=== PATIENT | male | born 1935 ===

== ENCOUNTER 2017-12-06 18:55 | Inpatient (IN) | payer MEDICARE, BC ==
[2017-12-06] MEDS ORDERED: Sodium Chloride 0.9% 2,000 ML IV STA (19:37)
[2017-12-06 19:43] LABS: VENOUS BLOOD GAS BASE EXCESS -1.1 mmol/L (0.0-2.0); VENOUS BLOOD GAS PO2 39 mm/Hg (30-55); VENOUS BLOOD PH 7.37 (7.32-7.43)
[2017-12-06 19:49] LABS: HEMOGLOBIN 13.5 g/dL (14.0-18.0); MEAN CELL VOLUME 90.3 fl (80.0-105.0); MEAN CORPUSCULAR HEMOGLOBIN 31.1 pg (25.0-35.0); MEAN CORPUSCULAR HGB CONC 34.4 g/dl (31.0-37.0); MEAN PLATELET VOLUME 10.8 fl (7.0-11.0); PARTIAL THROMBOPLASTIN TIME 25.8 Seconds (25.1-36.5); PROTHROMBIN TIME 11.4 SECONDS (9.4-12.5); RBC 4.34 10^6/uL (3.5-6.1); RED CELL DISTRIBUTION WIDTH 14.1 % (11.5-14.5)
[2017-12-06 19:51] LABS: ALB/GLOB RATIO 1.3 (1.1-1.8); ALBUMIN 4.2 g/dL (3.0-4.8); ALT/SGPT 411 U/L (7-56); AST/SGOT 633 U/L (17-59); BLOOD UREA NITROGEN 25 mg/dL (7-21); CALCIUM 9.6 mg/dL (8.4-10.5); GFR AFRICAN-AMERICAN > 60; GFR NON-AFRICAN AMERICAN > 60; WHITE BLOOD COUNT 1.8 10^3/ul (4.5-11.0)
[2017-12-06] MEDS ORDERED: Vancomycin 1gm in NS 250ml 1 GM/250 ML BAG IVPB STA (19:57)
[2017-12-06] MEDS ORDERED: Piperacillin/Tazobact 3.375 gm 100 ML IV STA (19:58)
[2017-12-06] MEDS ORDERED: Sodium Chloride 0.9% 1,000 ML IV SCH (20:00)
[2017-12-06 20:02] LABS: TROPONIN I < 0.01 ng/mL
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
[2017-12-06] MEDS ORDERED: Iodixanol 320 MG/ML 100 ML BOTTLE IV ONE (20:17)
[2017-12-06] MEDS ORDERED: Sodium Chloride 0.9% 1,000 ML IV STA (21:51)
[2017-12-06 22:52] LABS: VENOUS BLOOD GAS BASE EXCESS -6.2 mmol/L (0.0-2.0); VENOUS BLOOD GAS PO2 48 mm/Hg (30-55); VENOUS BLOOD PH 7.27 (7.32-7.43)
--- NOTE | 2017-12-06 23:11 | CP.PCM.CON ---
<Anand Tanner - Last Filed: 12/07/17 01:31> History of Present Illness - History of Present Illness History of Present Illness: Anand Tanner PGY2 ICU Consult Note for Dr. Lockett Mr. Almendarez is an 82 yo male with a PMH of hypertension, CAD s/p cardiac stents, hyperlipidemia, and paraplegia secondary to a prior fall who presents with multiple episodes of bilious non-bloody vomiting that began today. Per patient' s family who is bedside, the patient recently returned from travelling to [place] , where he wasn't drinking enough fluids. He began having epigastric pain yesterday with nausea, but began having vomiting earlier this morning, which worsened an hour prior to admission. Per daughter, the patient went to PMD and was given acid reflux meds but did not improve, he was also not febrile until seen in ED. CODE sepsis was called. ICU is consulted for hypotension. On CT abdomen/pelvis, the gallbladder wall is thickened with pericholecystic fluid and gallstones suspicious for acute cholecystitis. The CBD is dilated and there are high density foci within the distal CBD, concerning for possible calculus. The CBD measures 1 cm. 9 mm nodule in the lingula. Possible neoplastic process is not excluded. The right ureter is enlarged and there is wall enhancement noted, the findings are concerning for pyelitis. There is no calculus noted distally. Patient will be admitted to surgery, who evaluated the patient at bedside in ED. PMD: Dr. Julienne Amezquita Cardio: Dr. King Uro: Dr. Turner Review of Systems - Review of Systems All systems: reviewed and no additional remarkable complaints except (as per HPI ) Past Patient History - Past Medical History & Family History Past Medical History?: Yes Past Family History: Reviewed and not pertinent - Past Social History Smoking Status: Never Smoked Alcohol: Occasional Drugs: Denies Home Situation {Lives}: With Family - CARDIAC Hx Cardiac Disorders: Yes Hx Hypertension: Yes Hx Pacemaker: No - PULMONARY Hx Respiratory Disorders: No - NEUROLOGICAL Hx Paralysis: No Other/Comment: paraplegia s/p fall - HEENT Hx HEENT Problems: No - RENAL Hx Chronic Kidney Disease: No - ENDOCRINE/METABOLIC Hx Endocrine Disorders: No - HEMATOLOGICAL/ONCOLOGICAL Hx Blood Transfusions: No - INTEGUMENTARY Hx Dermatological Problems: No - MUSCULOSKELETAL/RHEUMATOLOGICAL Hx Musculoskeletal Disorders: Yes (SPINAL CORD INJURY) - GASTROINTESTINAL Hx Gastrointestinal Disorders: No - GENITOURINARY/GYNECOLOGICAL Hx Genitourinary Disorders: Yes Hx Urinary Tract Infection: Yes (2/2 urinary retention ) - PSYCHIATRIC Hx Emotional Abuse: No Hx Physical Abuse: No Hx Substance Use: No - SURGICAL HISTORY Hx Musculoskeletal Surgery: Yes (spinal column surgery) - ANESTHESIA Hx Anesthesia: Yes Hx Anesthesia Reactions: No Hx Malignant Hyperthermia: No Meds Allergies/Adverse Reactions: Allergies Allergy/AdvReac Type Severity Reaction Status Date / Time diatrizoate sodium Allergy Intermediate VERIFY ON Verified 02/17/17 09:50 [From Hypaque] ADM - Medications Medications: Current Medications Hydromorphone HCl (Dilaudid) 0.5 mg IVP Q6H PRN PRN Reason: Pain, moderate (4-7) Lactated Ringer's (Lactated Ringer's) 1,000 mls @ 125 mls/hr IV .Q8H NEETA Piperacillin Sod/Tazobactam Sod (Zosyn 3.375 In Ns 100ml) 100 mls @ 200 mls/hr IVPB Q6 NEETA PRN Reason: Protocol Stop: 12/08/17 18:29 Ondansetron HCl (Zofran Inj) 4 mg IVP Q4H PRN PRN Reason: Nausea/Vomiting Physical Exam - Constitutional Appears: Non-toxic, No Acute Distress - Head Exam Head Exam: NORMAL INSPECTION - Eye Exam Eye Exam: EOMI, Normal appearance - ENT Exam ENT Exam: Mucous Membranes Dry - Neck Exam Neck exam: Positive for: Normal Inspection - Respiratory Exam Respiratory Exam: NORMAL BREATHING PATTERN. absent: Rhonchi, Wheezes, Respiratory Distress - Cardiovascular Exam Cardiovascular Exam: Tachycardia, +S1, +S2 - GI/Abdominal Exam GI & Abdominal Exam: Soft, Tenderness. absent: Distended - Extremities Exam Extremities exam: Positive for: normal inspection. Negative for: full ROM, pedal edema - Back Exam Back exam: NORMAL INSPECTION - Neurological Exam Neurological exam: Alert - Psychiatric Exam Psychiatric exam: Normal Mood - Skin Skin Exam: Pallor Results - Vital Signs Recent Vital Signs: Last Vital Signs Temp 99.1 F 12/06/17 21:27 Pulse 96 H 12/06/17 22:38 Resp 18 12/06/17 21:27 BP 81/47 L 12/06/17 22:38 Pulse Ox 93 L 08/13/18 21:27 - Labs Result Diagrams: 12/06/17 19:34 12/06/17 19:34 Labs: Laboratory Results - last 24 hr 12/06/17 22:47 pO2 48 VBG pH 7.27 L VBG pCO2 45.0 VBG HCO3 20.7 L VBG Total CO2 22.1 VBG O2 Sat (Calc) 82.1 H VBG Base Excess -6.2 L VBG Potassium 2.9 L Sodium 139.0 Chloride 106.0 Glucose 73 L Lactate 5.8 H* FiO2 21.0 Venous Blood Potassium 2.9 L Assessment & Plan - Assessment and Plan (Free Text) Assessment: 82 yo male with a PMH of hypertension, CAD s/p cardiac stents, hyperlipidemia, and paraplegia 2/2 fall who presents with multiple episodes of bilious non- bloody vomiting w/ fevers. CODE SEPSIS was called. Likely severe sepsis w/ source being cholangitis as AST/ALT are elevated. Surgery is following the patient. Plan: Neuro - at baseline - maintain normothermia - monitor mental status changes Cardio - s/p 3L NS boluses - will cont LR @ 125 - goal MAP > 65 Pulm - CXR did not show acute findings - maintain SaO2>92% GI - CT abd/pelvis done - abd US ordered - monitor LFT's daily - GI consulted - NPO - zofran prn - dilaudid prn pain - zosyn for likely cholangitis /Renal - izaguirre inserted to monitor I/O and for urinary retention - monitor electrolytes and replete as needed ID - CODE SEPSIS called - patient received vancomycin and Zosyn in ED - started on Zosyn - blood and urine cultures ordered - f/u sepsis bundle - motrin prn fevers Endo - maintain euglycemia Heme - monitor leukopenia - maintain Hgb > 7 PPX - pepcid - SCDs Case was reviewed and discussed with attending with attending, Dr. Lockett <Monroe Lockett - Last Filed: 12/07/17 05:33> Meds - Medications Medications: Current Medications Calcium Carbonate (Oscal) 500 mg PO QAM NEETA Hydromorphone HCl (Dilaudid) 0.5 mg IVP Q6H PRN PRN Reason: Pain, moderate (4-7) Lactated Ringer's (Lactated Ringer's) 1,000 mls @ 125 mls/hr IV .Q8H [facility] Last Admin: 12/06/17 23:43 Dose: 125 mls/hr NOREPINEPHRINE BIT/0.9 % NACL (Levophed 4 Mg/ 250 Ml Ns Premixed) 4 mg in 250 mls @ 15 mls/hr IV .[id number] PRN; Protocol; 4 MCG/MIN PRN Reason: TITRATE PER MD ORDER Last Titration: 12/07/17 02:28 Dose: 12 mcg/min, 45 mls/hr Meropenem 500 mg/ Sodium (Chloride) 50 mls @ 100 mls/hr IVPB Q8 NEETA PRN Reason: Protocol Stop: 12/07/17 06:29 Last Admin: 12/07/17 01:31 Dose: 100 mls/hr Ibuprofen (Motrin Tab) 400 mg PO Q6H PRN PRN Reason: Fever >100.4 F Multivitamins/Minerals (Therapeutic-M Tab) 1 tab PO QAM [facility] Ondansetron HCl (Zofran Inj) 4 mg IVP Q4H PRN PRN Reason: Nausea/Vomiting Pantoprazole Sodium (Protonix Inj) 40 mg IVP DAILY [facility] Results - Vital Signs Recent Vital Signs: Last Vital Signs Temp 98.5 F 12/06/17 23:54 Pulse 78 12/07/17 02:15 Resp 23 12/07/17 02:15 BP 83/47 L 12/07/17 02:15 Pulse Ox 99 12/07/17 02:15 - Labs Result Diagrams: 12/06/17 19:34 12/06/17 19:34 Labs: Laboratory Results - last 24 hr 12/06/17 12/06/17 22:47 23:12 pO2 48 VBG pH 7.27 L VBG pCO2 45.0 VBG HCO3 20.7 L VBG Total CO2 22.1 VBG O2 Sat (Calc) 82.1 H VBG Base Excess -6.2 L VBG Potassium 2.9 L Sodium 139.0 Chloride 106.0 Glucose 73 L Lactate 5.8 H* FiO2 21.0 Venous Blood Potassium 2.9 L Urine Color Yellow Urine Appearance Clear Urine pH 6.0 Ur Specific [place] 1.020 Urine Protein Negative Urine Glucose (UA) Negative Urine Ketones Negative Urine Blood Trace-lysed H Urine Nitrate Negative Urine Bilirubin Negative Urine Urobilinogen 1.0 H Ur Leukocyte Esterase Negative Urine RBC 0 - 2 Urine WBC 0 - 2 Ur Epithelial Cells 0 - 2 Amorphous Sediment Occ Urine Bacteria Trace Assessment & Plan - Assessment and Plan (Free Text) Plan: The pt. was seen and examined. Pt. continued to be hypotensive. Central line was placed and pt. was started on Levophed. Zosyn switched to Meropenem. Attending/Attestation - Attestation I have personally seen and examined this patient.: Yes I have fully participated in the care of the patient.: Yes I have reviewed all pertinent clinical information: Yes
[2017-12-06 23:24] LABS: URINE BILIRUBIN NEGATIVE (NEGATIVE); URINE BLOOD TRACE-LYSED (NEGATIVE); URINE GLUCOSE (UA) NEGATIVE (NEGATIVE); URINE LEUKOCYTE ESTERASE NEGATIVE Leu/uL (NEGATIVE); URINE PROTEIN NEGATIVE mg/dL (<30 mg/dL)
[2017-12-06 23:28] LABS: URINE APPEARANCE CLEAR (CLEAR); URINE COLOR YELLOW (YELLOW)
[2017-12-06] MEDS: Lactated Ringer's 1,000 ML IV SCH (23:43)
--- NOTE | 2017-12-06 23:59 | CP.PCM.HP ---
History of Present Illness - History of Present Illness History of Present Illness: Surgery: Dr. 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 As per pt's daughter at bedside, the family just returned from a trip to [facility] on Wednesday & Wednesday night pt started having abdominal pain after dinner. This morning pt also had nausea followed by non-bloody, non bilious vomiting and he went to see his PMD. He was told everything was ok, however upon getting home pt started having episodes of RUQ abdominal pain again with N/V so he came to ER. Per pt's daughter he hasn't had similar abdominal pain in the past, however he did have issues with his bladder last year. At that time, he was admitted and seen by Dr. Turner & diagnosed with bladder outlet syndrome. Pt also reports fevers/ chills at home and on the way to the ER. In the ER, a CT scan was obtained and shows GB with stones, wall thickening, pericholecystic fluid & possible CBD stones. Surgery called to evaluate. Currently pt is resting comfortably and states pain has resolved. He denies any other complaints at this time but states that a izaguirre had to be placed in the ER due to his inability to urinate. Denies chest pain or SOB. PMHx: as listed above PSHx: Prostate laser vaporization, Back surgeries SocialHx: denies smoking/EtOH/drugs ALL: Diatrizoate Sodium Present on Admission - Present on Admission Any Indicators Present on Admission: No History of DVT/PE: No History of Uncontrolled Diabetes: No Urinary Catheter: No Decubitus Ulcer Present: No Review of Systems - Review of Systems All systems: reviewed and no additional remarkable complaints except (as per HPI ) Past Patient History - Past Medical History & Family History Past Medical History?: Yes Past Family History: Reviewed and not pertinent - Past Social History Smoking Status: Never Smoked Alcohol: Occasional Drugs: Denies Home Situation {Lives}: With Family - CARDIAC Hx Pacemaker: No - PULMONARY Hx Respiratory Disorders: No - NEUROLOGICAL Hx Paralysis: No Other/Comment: paraplegia s/p fall - HEENT Hx HEENT Problems: No - RENAL Hx Chronic Kidney Disease: No - ENDOCRINE/METABOLIC Hx Endocrine Disorders: No - HEMATOLOGICAL/ONCOLOGICAL Hx Blood Transfusions: No - INTEGUMENTARY Hx Dermatological Problems: No - MUSCULOSKELETAL/RHEUMATOLOGICAL Hx Musculoskeletal Disorders: Yes (SPINAL CORD INJURY) - GASTROINTESTINAL Hx Gastrointestinal Disorders: No - GENITOURINARY/GYNECOLOGICAL Hx Genitourinary Disorders: Yes Hx Urinary Tract Infection: Yes (2/2 urinary retention ) - PSYCHIATRIC Hx Emotional Abuse: No Hx Physical Abuse: No Hx Substance Use: No - SURGICAL HISTORY Hx Musculoskeletal Surgery: Yes (spinal column surgery) - ANESTHESIA Hx Anesthesia: Yes Hx Anesthesia Reactions: No Hx Malignant Hyperthermia: No Meds Allergies/Adverse Reactions: Allergies Allergy/AdvReac Type Severity Reaction Status Date / Time diatrizoate sodium Allergy Intermediate VERIFY ON Verified 02/17/17 09:50 [From Hypaque] ADM Physical Exam - Constitutional Appears: No Acute Distress - Head Exam Head Exam: ATRAUMATIC, NORMOCEPHALIC - ENT Exam ENT Exam: Mucous Membranes Moist - Respiratory Exam Respiratory Exam: NORMAL BREATHING PATTERN - Cardiovascular Exam Cardiovascular Exam: Tachycardia - GI/Abdominal Exam GI & Abdominal Exam: Soft. absent: Distended, Guarding, Rebound, Tenderness - Neurological Exam Neurological exam: Alert, Oriented x3 - Skin Skin Exam: Dry, Warm Results - Vital Signs Recent Vital Signs: Last Vital Signs Temp 99.0 F 12/06/17 23:23 Pulse 95 H 12/06/17 23:23 Resp 18 12/06/17 23:23 BP 80/50 L 12/06/17 23:23 Pulse Ox 98 12/06/17 23:23 - Labs Result Diagrams: 12/06/17 19:34 12/06/17 19:34 Labs: Laboratory Results - last 24 hr 12/06/17 12/06/17 22:47 23:12 pO2 48 VBG pH 7.27 L VBG pCO2 45.0 VBG HCO3 20.7 L VBG Total CO2 22.1 VBG O2 Sat (Calc) 82.1 H VBG Base Excess -6.2 L VBG Potassium 2.9 L Sodium 139.0 Chloride 106.0 Glucose 73 L Lactate 5.8 H* FiO2 21.0 Venous Blood Potassium 2.9 L Urine Color Yellow Urine Appearance Clear Urine pH 6.0 Ur Specific [place] 1.020 Urine Protein Negative Urine Glucose (UA) Negative Urine Ketones Negative Urine Blood Trace-lysed H Urine Nitrate Negative Urine Bilirubin Negative Urine Urobilinogen 1.0 H Ur Leukocyte Esterase Negative - Imaging and Cardiology CT scan - abdomen Status: Image reviewed by me Assessment & Plan - Assessment and Plan (Free Text) Assessment: 82M with acute cholangitis Plan: - Admit to the ICU - IVF resuscitation with goal MAPS above 60 - Monitor strict Is&Os - Broad spectrum IV ABX; Zosyn q6H - US of the abdomen also ordered; will f/u - GI consult placed as pt will need ERCP - AM Labs - Urology consult for urinary retention - d/w Dr. Andres Lovell
[2017-12-07 00:08] LABS: URINE AMORPHOUS SEDIMENT OCC; URINE EPITHELIAL CELLS 0 - 2 /hpf (0-5); URINE RBC 0 - 2 /hpf (0-2); URINE WBC 0 - 2 /hpf (0-6)
[2017-12-07 00:09] LABS: URINE BACTERIA TRACE (NEG)
[2017-12-07 01:00] VITALS: BMI 24.6
--- NOTE | 2017-12-07 01:26 | PCM.PROC ---
Procedures Attestation:: I certify that I have explained the specified Operation(s) or Procedure(s), risks, benefits and reasonable alternatives to the Patient and/or other person responsible. The opportunity was given to ask questions and all questions answered - Central Line Placement Right Internal Jugular Triple Lumen Catheter Aseptic technique was employed throughout the procedure: Hand Hygiene done prior to procedure, Full sterile barriers (mask, hair cover, sterile gown, sterile gloves), Full body sterile drape, Chloraprep Antiseptic: 30 second prep for IJ or SC sites CVP Time Out Performed: Yes Pt. Placed on Pulse Ox Monitor: Yes Central Line Prep: Chlorhexidine-Alcohol Combination Local Anesthesia Used: Lidocaine 1% Ultrasound Used for Placement: Yes Central Line Lumen Inserted: triple Central Line Length: 20 cm Post Procedure: Sutured in Place, Good Blood Return, All Ports Aspirated, Flushed, Capped, Sterile Dressing Applied Secured by: Securement device Post procedure dressing: Clear vapor permeable, Chlorhexidine disc (Biopatch) Post Procedure X-Ray: Yes Patient Tolerated Procedure: Well, No Complications Immediate Complications: None Additional Comments: Procedure was supervised by , PGY3
[2017-12-07] MEDS: NOREPINEPHRINE BIT/0.9 % NACL 4 MG/250 ML BAG IV PRN ×4 (01:30→18:26)
[2017-12-07] MEDS: Meropenem 500 MG in Sodium Chloride 0.9% 50 ML IVPB SCH ×2 (01:31→06:33)
--- NOTE | 2017-12-07 01:47 | PCM.SEPTIC ---
Sepsis Progress Note - Reassessment Type Date of Evaluation: 12/07/17 Time of Evaluation: 00:00 Reassessment Type: Non-invasive reassessment - Non Invasive Reassessment Were the most recent vital sign reviewed: Yes Vital Sign (Latest): Temp Pulse Resp BP Pulse Ox 98.5 F 95 H 18 78/43 L 99 12/06/17 23:54 12/06/17 23:54 12/06/17 23:54 12/06/17 23:54 12/06/17 23:54 Cardiovascular: Yes: Tachycardia. No: Edema, JVD, Murmur Respiratory: Yes: Normal Breath Sounds. No: Crackles, Rales, Rhonchi, Wheezing , Respiratory Distress Capillary Refill: Normal (Less than 2 sec) Pulses: Normal Radial Skin: Pale
[2017-12-07] MEDS ORDERED: Levalbuterol 1.25 MG/3 ML Inhal Soln UD IH STA (06:08)
[2017-12-07 06:20] LABS: ARTERIAL BLOOD GAS HCO3 11.7 mmol/L (21-28); ARTERIAL BLOOD GAS HEMOGLOBIN 11.4 g/dL (11.7-17.4); ARTERIAL BLOOD GAS O2 CAPACITY 15.8 mL/dl (16-24); ARTERIAL BLOOD GAS O2 CONTENT 15.6 ML/dl (15-23); ARTERIAL BLOOD GAS O2 SAT 98.7 % (95-98); ARTERIAL BLOOD GAS PCO2 25 mm/Hg (35-45); ARTERIAL BLOOD GAS PH 7.28 (7.35-7.45); ARTERIAL BLOOD GAS TCO2 12.5 mmol.L (22-28)
[2017-12-07] MEDS: Lactated Ringer's 1,000 ML IV SCH ×3 (06:49→21:16)
[2017-12-07 07:24] LABS: ALBUMIN 2.6 g/dL (3.0-4.8); ALT/SGPT 546 U/L (7-56); AST/SGOT 591 U/L (17-59); BLOOD UREA NITROGEN 27 mg/dL (7-21); CALCIUM 7.7 mg/dL (8.4-10.5); GFR AFRICAN-AMERICAN > 60; GFR NON-AFRICAN AMERICAN > 60
--- NOTE | 2017-12-07 08:38 | CP.PCM.CON ---
<Daja Camp - Last Filed: 12/07/17 16:50> History of Present Illness - History of Present Illness History of Present Illness: PGY-[address] Garay Medical consult: Mr Almendarez, 82M with PMHx significant for CAD s/p stent x 1 (6-7 years ago), HTN/ HLD, 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yrs ago complicated by bladder outlet obstruction (s/p cysto & prostate laser vaporization in ) C/O abdominal pain & N/V x 1 day. The pt with family just returned from a trip to [facility] on Wednesday & Wednesday night. pt started having abdominal pain after dinner. This morning pt also had nausea followed by non-bloody, non bilious vomiting. He saw his PMD. After getting home pt started having episodes of RUQ abdominal pain again with N/V so he came to ER. Per pt's daughter he hasn 't had similar abdominal pain in the past, however he did have issues with his bladder last year. At that time, he was admitted and seen by Dr. Turner & diagnosed with bladder outlet syndrome. Pt also reports fevers/chills at home and on the way to the ER. ROS: Denies chest pain or SOB. ED course: T 102.8 HR 102 105/49 92 RA WBC 1.8, Hb 13.5 Lactate 5.2 --> 5.8 --> 5.2 AST 633. ALT 411. LDH 1735. trops < 0.[address] scan shows (+) GB with stones, wall thickening, pericholecystic fluid & possible CBD stones. The CBD is dilated and there are high density foci within the distal CBD, concerning for possible calculus. The CBD measures 1 cm. 9 mm nodule in the lingula. Possible neoplastic process is not excluded. The right ureter is enlarged and there is wall enhancement noted, the findings are concerning for pyelitis. There is no calculus noted distally. 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 Julienne Amezquita Cardio: Dr. King Uro: Dr. Turner Past Patient History - Past Medical History & Family History Past Medical History?: Yes Past Family History: Reviewed and not pertinent - Past Social History Smoking Status: Never Smoked - CARDIAC Hx Cardiac Disorders: Yes Hx Hypertension: Yes Hx Pacemaker: No - PULMONARY Hx Respiratory Disorders: No - NEUROLOGICAL Hx Paralysis: No - HEENT Hx HEENT Problems: No - RENAL Hx Chronic Kidney Disease: No - ENDOCRINE/METABOLIC Hx Endocrine Disorders: No - HEMATOLOGICAL/ONCOLOGICAL Hx Blood Transfusions: No Hx Blood Transfusion Reaction: No - INTEGUMENTARY Hx Dermatological Problems: No - MUSCULOSKELETAL/RHEUMATOLOGICAL Hx Musculoskeletal Disorders: Yes (SPINAL CORD INJURY) - GASTROINTESTINAL Hx Gastrointestinal Disorders: No - GENITOURINARY/GYNECOLOGICAL Hx Genitourinary Disorders: Yes Hx Urinary Tract Infection: Yes (2/2 urinary retention ) - PSYCHIATRIC Hx Emotional Abuse: No Hx Physical Abuse: No Hx Substance Use: No - SURGICAL HISTORY Hx Musculoskeletal Surgery: Yes (spinal column surgery) - ANESTHESIA Hx Anesthesia: Yes Hx Anesthesia Reactions: No Hx Malignant Hyperthermia: No Meds Allergies/Adverse Reactions: Allergies Allergy/AdvReac Type Severity Reaction Status Date / Time diatrizoate sodium Allergy Intermediate VERIFY ON Verified 02/17/17 09:50 [From Hypaque] ADM - Medications Medications: Current Medications Calcium Carbonate (Oscal) 500 mg PO QAM NEETA Hydromorphone HCl (Dilaudid) 0.5 mg IVP Q6H PRN PRN Reason: Pain, moderate (4-7) Lactated Ringer's (Lactated Ringer's) 1,000 mls @ 125 mls/hr IV .Q8H NEETA Last Admin: 12/07/17 06:49 Dose: 125 mls/hr NOREPINEPHRINE BIT/0.9 % NACL (Levophed 4 Mg/ 250 Ml Ns Premixed) 4 mg in 250 mls @ 15 mls/hr IV .[id number] PRN; Protocol; 4 MCG/MIN PRN Reason: TITRATE PER MD ORDER Last Admin: 12/07/17 06:47 Dose: 12 mcg/min, 45 mls/hr Piperacillin Sod/Tazobactam Sod (Zosyn 3.375 In Ns 100ml) 100 mls @ 200 mls/hr IVPB Q6 NEETA PRN Reason: Protocol Stop: 12/14/17 12:01 Ibuprofen (Motrin Tab) 400 mg PO Q6H PRN PRN Reason: Fever >100.4 F Last Admin: 12/07/17 06:00 Dose: 400 mg Multivitamins/Minerals (Therapeutic-M Tab) 1 tab PO QAM NEETA Ondansetron HCl (Zofran Inj) 4 mg IVP Q4H PRN PRN Reason: Nausea/Vomiting Pantoprazole Sodium (Protonix Inj) 40 mg IVP DAILY NEETA Physical Exam - Constitutional Appears: No Acute Distress - Head Exam Head Exam: ATRAUMATIC, NORMAL INSPECTION, NORMOCEPHALIC - Eye Exam Eye Exam: EOMI, Normal appearance, PERRL. absent: Scleral icterus Pupil Exam: NORMAL ACCOMODATION - ENT Exam ENT Exam: Mucous Membranes Moist - Neck Exam Additional comments: supple - Respiratory Exam Respiratory Exam: Decreased Breath Sounds (b/i lung bases), Clear to Auscultation Bilateral. absent: Rales, Rhonchi, Wheezes - Cardiovascular Exam Cardiovascular Exam: REGULAR RHYTHM, +S1, +S2 - GI/Abdominal Exam GI & Abdominal Exam: Hypoactive Bowel Sounds, Soft, Tenderness (mild RUQ). absent: Distended, Guarding, Rigid - Extremities Exam Extremities exam: Positive for: pedal pulses present. Negative for: calf tenderness Additional comments: Upper extremities motor/sensory intact - Neurological Exam Neurological exam: Alert, CN II-XII Intact, Oriented x3 - Psychiatric Exam Psychiatric exam: Normal Mood - Skin Skin Exam: Dry, Warm Results - Vital Signs Recent Vital Signs: Last Vital Signs Temp 98.4 F 12/07/17 07:00 Pulse 84 12/07/17 07:40 Resp 22 12/07/17 07:30 BP 99/60 L 12/07/17 07:30 Pulse Ox 99 12/07/17 07:30 - Labs Result Diagrams: 12/07/17 15:40 12/07/17 15:40 Labs: Laboratory Results - last 24 hr 12/06/17 12/06/17 12/07/17 22:47 23:12 06:00 pCO2 pO2 48 HCO3 ABG pH ABG Total CO2 ABG O2 Saturation ABG O2 Content ABG Base Excess ABG Hemoglobin ABG Carboxyhemoglobin POC ABG HHb (Measured) ABG Methemoglobin ABG O2 Capacity VBG pH 7.27 L VBG pCO2 45.0 VBG HCO3 20.7 L VBG Total CO2 22.1 VBG O2 Sat (Calc) 82.1 H VBG Base Excess -6.2 L VBG Potassium 2.9 L Hgb O2 Saturation Sodium 139.0 141 Chloride 106.0 108 H Glucose 73 L Lactate 5.8 H* FiO2 21.0 Potassium 3.4 L Carbon Dioxide 20 L Anion Gap 16 BUN 27 H Creatinine 1.0 Est GFR ( Amer) > 60 Est GFR (Non-Af Amer) > 60 Random Glucose 98 Lactic Acid Calcium 7.7 L Phosphorus 3.4 Magnesium 1.4 L Total Bilirubin 3.3 H AST 591 H ALT 546 H Alkaline Phosphatase 137 H D Total Protein 5.2 L Albumin 2.6 L Globulin 2.6 Albumin/Globulin Ratio 1.0 L Venous Blood Potassium 2.9 L Urine Color Yellow Urine Appearance Clear Urine pH 6.0 Ur Specific [place] 1.020 Urine Protein Negative Urine Glucose (UA) Negative Urine Ketones Negative Urine Blood Trace-lysed H Urine Nitrate Negative Urine Bilirubin Negative Urine Urobilinogen 1.0 H Ur Leukocyte Esterase Negative Urine RBC 0 - 2 Urine WBC 0 - 2 Ur Epithelial Cells 0 - 2 Amorphous Sediment Occ Urine Bacteria Trace 12/07/17 12/07/17 06:00 06:18 pCO2 25 L pO2 97.0 HCO3 11.7 L ABG pH 7.28 L ABG Total CO2 12.5 L ABG O2 Saturation 98.7 H ABG O2 Content 15.6 ABG Base Excess -13.4 L ABG Hemoglobin 11.4 L ABG Carboxyhemoglobin 1.5 POC ABG HHb (Measured) 1.3 ABG Methemoglobin 0.7 ABG O2 Capacity 15.8 L VBG pH VBG pCO2 VBG HCO3 VBG Total CO2 VBG O2 Sat (Calc) VBG Base Excess VBG Potassium Hgb O2 Saturation 96.6 Sodium Chloride Glucose Lactate FiO2 36.0 Potassium Carbon Dioxide Anion Gap BUN Creatinine Est GFR ( Amer) Est GFR (Non-Af Amer) Random Glucose Lactic Acid 5.2 H* Calcium Phosphorus Magnesium Total Bilirubin AST ALT Alkaline Phosphatase Total Protein Albumin Globulin Albumin/Globulin Ratio Venous Blood Potassium Urine Color Urine Appearance Urine pH Ur Specific [place] Urine Protein Urine Glucose (UA) Urine Ketones Urine Blood Urine Nitrate Urine Bilirubin Urine Urobilinogen Ur Leukocyte Esterase Urine RBC Urine WBC Ur Epithelial Cells Amorphous Sediment Urine Bacteria Assessment & Plan - Assessment and Plan (Free Text) Plan: Mr Almendarez, 82M with PMHx significant for CAD s/p stent x 1 (6-7 years ago), HTN/ HLD, 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yrs ago complicated by bladder outlet obstruction (s/p cysto & prostate laser vaporization in ) C/O abdominal pain & N/V x 1 day. On admission, T 102.8, HR 102. In ICU, hypotension requiring levophed. AST 633. ALT 411. TB 3.3. CT scan shows (+) CBD is dilated and there are high density foci within the distal CBD, concerning for possible calculus. The CBD measures 1 cm. 9 mm nodule in the lingula. Possible neoplastic process is not excluded. The right ureter is enlarged and there is wall enhancement noted, the findings are concerning for pyelitis. There is no calculus noted distally. Septic shock likely due to cholangitis, less likely pyelitis due to renal calculus Leukopenia on admission - resolved Leukocytosis s/p stress dose steroid Fever 102.8 on admission - resolved Lactic acidosis, compensated - Vanco, merem, day 2 - LR @ 125 - Levophed, vasopressin to mantain MAP > 65 - solucortef - UCx, BCx, Specimen Cx - NPO because on pressors Cholangitis - IR intervention for biliary/blanche drain, US guided, today. Cultures for specimen - HIDA: Nonvisualization of GB and bileduct consistent with common duct obstruction - Per GI, if sepsis not improve in next 24 hours, pt still need ERCP; transfer to [facility] - Abdominal u/s: multiple gallstones w sludge. Edema of GB wall 11mm thick - dilaudid/zofran PRN Hx CAD s/p stent x 1 (6-7 years ago), HTN/HLD Hx paraplegia s/p fall 40yrs ago - pressure ulcer precauseion Hx bladder outlet obstruction s/p cysto & prostate laser vaporization in Feb, 2017 - monitor i/o Allergy to Hypaque (Diatrizoate Sodium) Prophylaxis - protonix, SCD s/r/d/w Dr Garay <Wilmer Garay S - Last Filed: 12/07/17 19:15> Meds - Medications Medications: Current Medications Hydrocortisone Sodium Succinate (Solu-Cortef) 100 mg IVP Q8 NEETA Last Admin: 12/07/17 15:21 Dose: 100 mg Hydromorphone HCl (Dilaudid) 0.5 mg IVP Q6H PRN PRN Reason: Pain, moderate (4-7) Last Admin: 12/07/17 11:26 Dose: 0.5 mg NOREPINEPHRINE BIT/0.9 % NACL (Levophed 4 Mg/ 250 Ml Ns Premixed) 4 mg in 250 mls @ 15 mls/hr IV .[id number] PRN; Protocol; 4 MCG/MIN PRN Reason: TITRATE PER MD ORDER Last Admin: 12/07/17 18:26 Dose: 8 mcg/min, 30 mls/hr Vasopressin 20 units/ Sodium (Chloride) 101 mls @ 9.09 mls/hr IV .[id number] NEETA; 0.03 U/MIN PRN Reason: Protocol Last Admin: 12/07/17 09:09 Dose: 9.09 mls/hr Meropenem (Merrem Iv 1 Gm Premix) 50 mls @ 100 mls/hr IVPB Q8 NEETA PRN Reason: Protocol Last Admin: 12/07/17 15:20 Dose: 100 mls/hr Vancomycin HCl (Vancomycin 1gm) 1 gm in 250 mls @ 167 mls/hr IVPB Q12H NEETA PRN Reason: Protocol Last Admin: 12/07/17 15:20 Dose: 167 mls/hr Lactated Ringer's (Lactated Ringer's) 1,000 mls @ 175 mls/hr IV .Q5H43M NEETA Last Admin: 12/07/17 15:37 Dose: 175 mls/hr Ibuprofen (Motrin Tab) 400 mg PO Q6H PRN PRN Reason: Fever >100.4 F Last Admin: 12/07/17 06:00 Dose: 400 mg Multivitamins/Minerals (Therapeutic-M Tab) 1 tab PO QAM [facility] Last Admin: 12/07/17 09:06 Dose: Not Given Ondansetron HCl (Zofran Inj) 4 mg IVP Q4H PRN PRN Reason: Nausea/Vomiting Pantoprazole Sodium (Protonix Inj) 40 mg IVP DAILY NEETA Last Admin: 12/07/17 09:06 Dose: 40 mg Results - Vital Signs Recent Vital Signs: Last Vital Signs Temp 97.7 F 12/07/17 16:00 Pulse 56 L 12/07/17 18:00 Resp 23 12/07/17 17:50 BP 109/60 12/07/17 16:00 Pulse Ox 100 12/07/17 18:00 - Labs Result Diagrams: 12/07/17 15:40 12/07/17 15:40 Labs: Laboratory Results - last 24 hr 12/06/17 12/06/17 12/07/17 22:47 23:12 05:00 WBC RBC Hgb Hct MCV MCH MCHC RDW Plt Count MPV Gran % Lymph % (Auto) [place] % (Auto) Eos % (Auto) Baso % (Auto) Gran # Lymph # (Auto) [place] # (Auto) Eos # (Auto) Baso # (Auto) Neutrophils % (Manual) Band Neutrophils % Lymphocytes % (Manual) Atypical Lymphs % Monocytes % (Manual) Eosinophils % (Manual) Platelet Evaluation pCO2 pO2 48 HCO3 ABG pH ABG Total CO2 ABG O2 Saturation ABG O2 Content ABG Base Excess ABG Hemoglobin ABG Carboxyhemoglobin POC ABG HHb (Measured) ABG Methemoglobin ABG O2 Capacity VBG pH 7.27 L VBG pCO2 45.0 VBG HCO3 20.7 L VBG Total CO2 22.1 VBG O2 Sat (Calc) 82.1 H VBG Base Excess -6.2 L VBG Potassium 2.9 L Hgb O2 Saturation Sodium 139.0 Chloride 106.0 Glucose 73 L Lactate 5.8 H* FiO2 21.0 Potassium Carbon Dioxide Anion Gap BUN Creatinine Est GFR ( Amer) Est GFR (Non-Af Amer) Random Glucose Lactic Acid Calcium Phosphorus Magnesium Total Bilirubin AST ALT Alkaline Phosphatase Total Protein Albumin Globulin Albumin/Globulin Ratio Amylase 56 Lipase 95 Venous Blood Potassium 2.9 L Urine Color Yellow Urine Appearance Clear Urine pH 6.0 Ur Specific [place] 1.020 Urine Protein Negative Urine Glucose (UA) Negative Urine Ketones Negative Urine Blood Trace-lysed H Urine Nitrate Negative Urine Bilirubin Negative Urine Urobilinogen 1.0 H Ur Leukocyte Esterase Negative Urine RBC 0 - 2 Urine WBC 0 - 2 Ur Epithelial Cells 0 - 2 Amorphous Sediment Occ Urine Bacteria Trace 12/07/17 12/07/17 12/07/17 06:00 06:00 06:18 WBC RBC Hgb Hct MCV MCH MCHC RDW Plt Count MPV Gran % Lymph % (Auto) [place] % (Auto) Eos % (Auto) Baso % (Auto) Gran # Lymph # (Auto) [place] # (Auto) Eos # (Auto) Baso # (Auto) Neutrophils % (Manual) Band Neutrophils % Lymphocytes % (Manual) Atypical Lymphs % Monocytes % (Manual) Eosinophils % (Manual) Platelet Evaluation pCO2 25 L pO2 97.0 HCO3 11.7 L ABG pH 7.28 L ABG Total CO2 12.5 L ABG O2 Saturation 98.7 H ABG O2 Content 15.6 ABG Base Excess -13.4 L ABG Hemoglobin 11.4 L ABG Carboxyhemoglobin 1.5 POC ABG HHb (Measured) 1.3 ABG Methemoglobin 0.7 ABG O2 Capacity 15.8 L VBG pH VBG pCO2 VBG HCO3 VBG Total CO2 VBG O2 Sat (Calc) VBG Base Excess VBG Potassium Hgb O2 Saturation 96.6 Sodium 141 Chloride 108 H Glucose Lactate FiO2 36.0 Potassium 3.4 L Carbon Dioxide 20 L Anion Gap 16 BUN 27 H Creatinine 1.0 Est GFR ( Amer) > 60 Est GFR (Non-Af Amer) > 60 Random Glucose 98 Lactic Acid 5.2 H* Calcium 7.7 L Phosphorus 3.4 Magnesium 1.4 L Total Bilirubin 3.3 H AST 591 H ALT 546 H Alkaline Phosphatase 137 H D Total Protein 5.2 L Albumin 2.6 L Globulin 2.6 Albumin/Globulin Ratio 1.0 L Amylase Lipase Venous Blood Potassium Urine Color Urine Appearance Urine pH Ur Specific [place] Urine Protein Urine Glucose (UA) Urine Ketones Urine Blood Urine Nitrate Urine Bilirubin Urine Urobilinogen Ur Leukocyte Esterase Urine RBC Urine WBC Ur Epithelial Cells Amorphous Sediment Urine Bacteria 12/07/17 12/07/17 12/07/17 08:40 15:40 15:40 WBC 19.4 H D 29.0 H* D RBC 3.66 3.75 Hgb 11.2 L D 11.4 L Hct 33.3 L 34.6 L MCV 91.0 92.3 MCH 30.6 30.4 MCHC 33.6 32.9 RDW 14.9 H 15.1 H Plt Count 124 130 MPV 10.4 10.9 Gran % 94.3 H 92.4 H Lymph % (Auto) 2.7 L 2.6 L [place]ke % (Auto) 2.8 4.9 Eos % (Auto) 0.1 L 0.0 L Baso % (Auto) 0.1 0.1 Gran # 18.32 H 26.83 H Lymph # (Auto) 0.5 L 0.8 L Darke # (Auto) 0.5 1.4 H Eos # (Auto) 0.0 0.0 Baso # (Auto) 0.01 0.03 Neutrophils % (Manual) 88 H Band Neutrophils % 4 H Lymphocytes % (Manual) 4 L Atypical Lymphs % 1 H Monocytes % (Manual) 2 Eosinophils % (Manual) 1 Platelet Evaluation Low pCO2 pO2 HCO3 ABG pH ABG Total CO2 ABG O2 Saturation ABG O2 Content ABG Base Excess ABG Hemoglobin ABG Carboxyhemoglobin POC ABG HHb (Measured) ABG Methemoglobin ABG O2 Capacity VBG pH VBG pCO2 VBG HCO3 VBG Total CO2 VBG O2 Sat (Calc) VBG Base Excess VBG Potassium Hgb O2 Saturation Sodium 141 Chloride 111 H Glucose Lactate FiO2 Potassium 4.0 Carbon Dioxide 18 L Anion Gap 16 BUN 28 H Creatinine 1.0 Est GFR ( Amer) > 60 Est GFR (Non-Af Amer) > 60 Random Glucose 88 Lactic Acid Calcium 7.9 L Phosphorus 4.5 Magnesium 2.2 Total Bilirubin 4.8 H AST 417 H D ALT 546 H Alkaline Phosphatase 144 H Total Protein 5.5 L Albumin 2.9 L Globulin 2.7 Albumin/Globulin Ratio 1.1 Amylase Lipase Venous Blood Potassium Urine Color Urine Appearance Urine pH Ur Specific [place] Urine Protein Urine Glucose (UA) Urine Ketones Urine Blood Urine Nitrate Urine Bilirubin Urine Urobilinogen Ur Leukocyte Esterase Urine RBC Urine WBC Ur Epithelial Cells Amorphous Sediment Urine Bacteria Assessment & Plan - Assessment and Plan (Free Text) Plan: Pt seen and examined. I have reviewed the note of the registered medical assistant and agree with it. I have discussed the assessment and plan with the resident. I have reviewed the patient's labs and medications. Pt with septic shock due to acute cholecystitis. Not able to get ERCP, no GI available to perform procedure. Pt unable to get transferred due to being unstable. Spoke to IR, Dr Fabián Lyon to place a percutaneous drain. Spoke to family and answered all questions. Spoke to Dr Amezquita PMJeremy. On pressors. Spoke to Surgery and new patient escort.
--- NOTE | 2017-12-07 08:43 | CT ---
Date of service: 12/06/2017 PROCEDURE: CT Abdomen and Pelvis with contrast HISTORY: abdominal pain COMPARISON: None. TECHNIQUE: Contrast dose: 100 cc of Visipaque Radiation dose: Total exam DLP = 360 mGy-cm. This CT exam was performed using one or more of the following dose reduction techniques: Automated exposure control, adjustment of the mA and/or kV according to patient size, and/or use of iterative reconstruction technique. FINDINGS: LOWER THORAX: Unremarkable. LIVER: Unremarkable. No gross lesion or ductal dilatation. GALLBLADDER AND BILE DUCTS: Multiple gallstones are seen. There is also pericholecystic fluid suspicious for cholecystitis. There is dilatation of the common duct which measures between 10 and 13 mm in diameter. There is some increased density in the distal common duct which may represent sludge or possibly a common duct stone. PANCREAS: Unremarkable. No gross lesion or ductal dilatation. SPLEEN: Unremarkable. ADRENALS: Unremarkable. No mass. KIDNEYS AND URETERS: The right ureter is dilated and there is mild mural enhancement. Findings could represent urinary tract infection. There is no evidence of a stone. There is no evidence of hydronephrosis. VASCULATURE: Unremarkable. No aortic aneurysm. BOWEL: Unremarkable. No obstruction. No gross mural thickening. APPENDIX: Normal appendix. PERITONEUM: Unremarkable. No free fluid. No free air. LYMPH NODES: Unremarkable. No enlarged lymph nodes. BLADDER: Unremarkable. REPRODUCTIVE: Unremarkable. BONES: Spinal rods are seen in the lower thoracic and upper lumbar spine OTHER FINDINGS: The report concurs with the preliminary [facility] report IMPRESSION: The right ureter is dilated and there is mild mural enhancement. Findings could represent urinary tract infection. There is no evidence of a stone. There is no evidence of hydronephrosis. Multiple gallstones are seen. There is also pericholecystic fluid suspicious for cholecystitis. There is dilatation of the common duct which measures between 10 and 13 mm in diameter. There is some increased density in the distal common duct which may represent sludge or possibly a common duct stone.
[2017-12-07 08:46] LABS: BASO # 0.01 K/mm3 (0.0-2.0); BASO % 0.1 % (0.0-3.0); EOS % 0.1 % (1.5-5.0); GRAN # 18.32 (1.4-6.5); GRAN % 94.3 % (50.0-68.0); HEMOGLOBIN 11.2 g/dL (14.0-18.0); LYMPH # 0.5 (1.2-3.4); LYMPH % 2.7 % (22.0-35.0); MEAN CORPUSCULAR HEMOGLOBIN 30.6 pg (25.0-35.0); MEAN CORPUSCULAR HGB CONC 33.6 g/dl (31.0-37.0); MEAN PLATELET VOLUME 10.4 fl (7.0-11.0); MONO # 0.5 (0.1-0.6); MONO % 2.8 % (1.0-6.0); PLATELET COUNT 124 10^3/uL (120.0-450.0); RBC 3.66 10^6/uL (3.5-6.1); RED CELL DISTRIBUTION WIDTH 14.9 % (11.5-14.5)
[2017-12-07 08:48] LABS: WHITE BLOOD COUNT 19.4 10^3/ul (4.5-11.0)
--- NOTE | 2017-12-07 09:14 | CARD ---
APPROVED REPORT Date of service: 12/06/2017 EKG Measurement Heart [id number] <Conclusion> Normal sinus rhythm with sinus arrhythmia Right bundle branch block Left anterior fascicular block Bifascicular block Minimal voltage criteria for LVH, may be normal variant Septal infarct, age undetermined Abnormal ECG
--- NOTE | 2017-12-07 09:16 | RAD ---
Date of service: 12/07/2017 HISTORY: acute sob COMPARISON: 12/07/2017 at 1:11 a.m. FINDINGS: LUNGS: Prominent right hilum likely due to oblique positioning of the patient. PLEURA: No pleural effusion or pneumothorax. CARDIOVASCULAR: Mild congestive change. Normal heart size. Right IJ central venous catheter unchanged. OSSEOUS STRUCTURES: Spinal fixation rods. VISUALIZED UPPER ABDOMEN: Normal. OTHER FINDINGS: None. IMPRESSION: Congestive change. No infiltrate/ effusion.
--- NOTE | 2017-12-07 09:17 | RAD ---
Date of service: 12/07/2017 HISTORY: s/p CVP COMPARISON: 12/06/2017 FINDINGS: LUNGS: Diffuse mild interstitial prominence. No focal consolidation. PLEURA: No significant pleural effusion identified, no pneumothorax apparent. CARDIOVASCULAR: Normal heart size. Right IJ central venous catheter. OSSEOUS STRUCTURES: Spinal fixation rods noted. VISUALIZED UPPER ABDOMEN: Normal. OTHER FINDINGS: None. IMPRESSION: Mild diffuse interstitial prominence, nonspecific. No focal consolidation or pleural effusion.
[2017-12-07] MEDS: Meropenem IV 1 gm in NS 50 ML IVPB SCH ×3 (09:29→21:16)
--- NOTE | 2017-12-07 09:34 | RAD ---
Date of service: 12/06/2017 HISTORY: fever COMPARISON: 02/17/2017 FINDINGS: LUNGS: No active pulmonary disease. PLEURA: No significant pleural effusion identified, no pneumothorax apparent. CARDIOVASCULAR: Normal. OSSEOUS STRUCTURES: No significant abnormalities. VISUALIZED UPPER ABDOMEN: Normal. OTHER FINDINGS: None. IMPRESSION: No active disease.
[2017-12-07] MEDS ORDERED: Metoprolol Succinate 25 mg XL Tab PO SCH (10:00)
[2017-12-07] MEDS ORDERED: Multivitamin With Minerals Tab PO SCH (10:00)
[2017-12-07 10:18] LABS: AMYLASE 56 U/L (35-125); LIPASE 95 U/L (23-300)
[2017-12-07 10:27] LABS: ATYPICAL LYMPHOCYTE 1 % (0.0-0.0); BAND 4 % (0-2); EOSINOPHIL 1 % (0.0-3.0); LYMPHOCYTE 4 % (22.0-35.0); MONOCYTE 2 % (1.0-6.0); NEUTROPHIL 88 % (50.0-70.0); PLATELET ESTIMATE LOW (NORMAL)
--- NOTE | 2017-12-07 10:27 | CP.PCM.CON ---
<Irma Conner - Last Filed: 12/07/17 13:29> History of Present Illness - History of Present Illness History of Present Illness: PGY-2 Infectious disease consult for Dr. Zimmerman's service 82 yo male with a PMH of hypertension, CAD s/p cardiac stents, hyperlipidemia, and paraplegia secondary to a prior fall who presents with multiple episodes of non-bloody vomiting and abdominal pain. Per family the pain started 3-4 days ago and he began vomiting yesterday. Patient recently returned from travelling to [facility] about 4 days ago. Family reports that on his trip everything was normal. He saw his PMD and was given medication for reflux. However the pain continued so he came to the ED. Denies previous similar abdominal pain in the past. Patient also reports fevers/chills at home. No recent illnesses or antibiotic use. Family reports that no one else is ill. Denies chest pain, SOB, headache, dizziness, sore throat, cough, dysuria. 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 in [facility]: Prostate laser vaporization, spinal column surgeries Social History: denies smoking, alcohol use, illicit drug use Allergy: Diatrizoate Sodium Review of Systems - Review of Systems All systems: reviewed and no additional remarkable complaints except - Constitutional Constitutional: Chills, Fever - EENT Nose/Mouth/Throat: absent: Nasal Congestion, Nasal Discharge, Sore Throat - Cardiovascular Cardiovascular: absent: Chest Pain, Dyspnea, Dyspnea on Exertion, Leg Edema - Respiratory Respiratory: absent: Cough, Dyspnea, Hemoptysis - Gastrointestinal Gastrointestinal: Abdominal Pain, Nausea, Vomiting. absent: Constipation - Genitourinary Genitourinary: absent: Difficulty Urinating, Dysuria, Hematuria - Musculoskeletal Musculoskeletal: absent: Arthralgias, Back Pain, Myalgias - Integumentary Integumentary: absent: Sores, Swelling, Wounds - Neurological Neurological: absent: Confusion, Dizziness, Headaches - Hematologic/Lymphatic Hematologic: absent: Easy Bleeding, Easy Bruising Past Patient History - Past Medical History & Family History Past Medical History?: Yes Past Family History: Reviewed and not pertinent - Past Social History Smoking Status: Never Smoked - CARDIAC Hx Cardiac Disorders: Yes Hx Hypertension: Yes Hx Pacemaker: No - PULMONARY Hx Respiratory Disorders: No - NEUROLOGICAL Hx Paralysis: No - HEENT Hx HEENT Problems: No - RENAL Hx Chronic Kidney Disease: No - ENDOCRINE/METABOLIC Hx Endocrine Disorders: No - HEMATOLOGICAL/ONCOLOGICAL Hx Blood Transfusions: No Hx Blood Transfusion Reaction: No - INTEGUMENTARY Hx Dermatological Problems: No - MUSCULOSKELETAL/RHEUMATOLOGICAL Hx Musculoskeletal Disorders: Yes (SPINAL CORD INJURY) - GASTROINTESTINAL Hx Gastrointestinal Disorders: No - GENITOURINARY/GYNECOLOGICAL Hx Genitourinary Disorders: Yes Hx Urinary Tract Infection: Yes (2/2 urinary retention ) - PSYCHIATRIC Hx Emotional Abuse: No Hx Physical Abuse: No Hx Substance Use: No - SURGICAL HISTORY Hx Musculoskeletal Surgery: Yes (spinal column surgery) - ANESTHESIA Hx Anesthesia: Yes Hx Anesthesia Reactions: No Hx Malignant Hyperthermia: No Meds Allergies/Adverse Reactions: Allergies Allergy/AdvReac Type Severity Reaction Status Date / Time diatrizoate sodium Allergy Intermediate VERIFY ON Verified 02/17/17 09:50 [From Hypaque] ADM - Medications Medications: Current Medications Hydrocortisone Sodium Succinate (Solu-Cortef) 100 mg IVP Q8 NEETA Last Admin: 12/07/17 09:06 Dose: 100 mg Hydromorphone HCl (Dilaudid) 0.5 mg IVP Q6H PRN PRN Reason: Pain, moderate (4-7) Lactated Ringer's (Lactated Ringer's) 1,000 mls @ 125 mls/hr IV .Q8H NEETA Last Admin: 12/07/17 06:49 Dose: 125 mls/hr NOREPINEPHRINE BIT/0.9 % NACL (Levophed 4 Mg/ 250 Ml Ns Premixed) 4 mg in 250 mls @ 15 mls/hr IV .[id number] PRN; Protocol; 4 MCG/MIN PRN Reason: TITRATE PER MD ORDER Last Titration: 12/07/17 08:00 Dose: 15 mcg/min, 56.25 mls/hr Vasopressin 20 units/ Sodium (Chloride) 101 mls @ 9.09 mls/hr IV .Q11H7M NEETA; 0.03 U/MIN PRN Reason: Protocol Last Admin: 12/07/17 09:09 Dose: 9.09 mls/hr Meropenem (Merrem Iv 1 Gm Premix) 50 mls @ 100 mls/hr IVPB Q8 NEETA PRN Reason: Protocol Last Admin: 12/07/17 09:29 Dose: 100 mls/hr Vancomycin HCl (Vancomycin 1gm) 1 gm in 250 mls @ 167 mls/hr IVPB Q12H NEETA PRN Reason: Protocol Ibuprofen (Motrin Tab) 400 mg PO Q6H PRN PRN Reason: Fever >100.4 F Last Admin: 12/07/17 06:00 Dose: 400 mg Multivitamins/Minerals (Therapeutic-M Tab) 1 tab PO QAM [facility] Last Admin: 12/07/17 09:06 Dose: Not Given Ondansetron HCl (Zofran Inj) 4 mg IVP Q4H PRN PRN Reason: Nausea/Vomiting Pantoprazole Sodium (Protonix Inj) 40 mg IVP DAILY [facility] Last Admin: 12/07/17 09:06 Dose: 40 mg Physical Exam - Constitutional Appears: No Acute Distress - Head Exam Head Exam: ATRAUMATIC, NORMAL INSPECTION, NORMOCEPHALIC - Eye Exam Eye Exam: Normal appearance - ENT Exam ENT Exam: Mucous Membranes Moist - Respiratory Exam Respiratory Exam: Clear to Auscultation Bilateral. absent: Decreased Breath Sounds, Rales, Wheezes, Respiratory Distress, NORMAL BREATHING PATTERN - Cardiovascular Exam Cardiovascular Exam: REGULAR RHYTHM. absent: Bradycardia, Tachycardia, Systolic Murmur - GI/Abdominal Exam GI & Abdominal Exam: Normal Bowel Sounds, Soft. absent: Diminished Bowel Sounds , Distended, Firm, Tenderness - Extremities Exam Extremities exam: Positive for: normal inspection. Negative for: pedal edema, tenderness - Neurological Exam Neurological exam: Alert, Oriented x3 - Skin Skin Exam: Dry, Intact, Normal Color, Warm Results - Vital Signs Recent Vital Signs: Last Vital Signs Temp 98.4 F 12/07/17 07:00 Pulse 84 12/07/17 07:40 Resp 22 12/07/17 07:30 BP 90/35 L 12/07/17 09:09 Pulse Ox 99 12/07/17 07:30 - Labs Result Diagrams: 12/07/17 08:40 12/07/17 06:00 Labs: Laboratory Results - last 24 hr 12/06/17 12/06/17 12/07/17 22:47 23:12 05:00 WBC RBC Hgb Hct MCV MCH MCHC RDW Plt Count MPV Gran % Lymph % (Auto) Hudson % (Auto) Eos % (Auto) Baso % (Auto) Gran # Lymph # (Auto) Hudson # (Auto) Eos # (Auto) Baso # (Auto) pCO2 pO2 48 HCO3 ABG pH ABG Total CO2 ABG O2 Saturation ABG O2 Content ABG Base Excess ABG Hemoglobin ABG Carboxyhemoglobin POC ABG HHb (Measured) ABG Methemoglobin ABG O2 Capacity VBG pH 7.27 L VBG pCO2 45.0 VBG HCO3 20.7 L VBG Total CO2 22.1 VBG O2 Sat (Calc) 82.1 H VBG Base Excess -6.2 L VBG Potassium 2.9 L Hgb O2 Saturation Sodium 139.0 Chloride 106.0 Glucose 73 L Lactate 5.8 H* FiO2 21.0 Potassium Carbon Dioxide Anion Gap BUN Creatinine Est GFR ( Amer) Est GFR (Non-Af Amer) Random Glucose Lactic Acid Calcium Phosphorus Magnesium Total Bilirubin AST ALT Alkaline Phosphatase Total Protein Albumin Globulin Albumin/Globulin Ratio Amylase 56 Lipase 95 Venous Blood Potassium 2.9 L Urine Color Yellow Urine Appearance Clear Urine pH 6.0 Ur Specific Irene 1.020 Urine Protein Negative Urine Glucose (UA) Negative Urine Ketones Negative Urine Blood Trace-lysed H Urine Nitrate Negative Urine Bilirubin Negative Urine Urobilinogen 1.0 H Ur Leukocyte Esterase Negative Urine RBC 0 - 2 Urine WBC 0 - 2 Ur Epithelial Cells 0 - 2 Amorphous Sediment Occ Urine Bacteria Trace 12/07/17 12/07/17 12/07/17 06:00 06:00 06:18 WBC RBC Hgb Hct MCV MCH MCHC RDW Plt Count MPV Gran % Lymph % (Auto) Hudson % (Auto) Eos % (Auto) Baso % (Auto) Gran # Lymph # (Auto) Hudson # (Auto) Eos # (Auto) Baso # (Auto) pCO2 25 L pO2 97.0 HCO3 11.7 L ABG pH 7.28 L ABG Total CO2 12.5 L ABG O2 Saturation 98.7 H ABG O2 Content 15.6 ABG Base Excess -13.4 L ABG Hemoglobin 11.4 L ABG Carboxyhemoglobin 1.5 POC ABG HHb (Measured) 1.3 ABG Methemoglobin 0.7 ABG O2 Capacity 15.8 L VBG pH VBG pCO2 VBG HCO3 VBG Total CO2 VBG O2 Sat (Calc) VBG Base Excess VBG Potassium Hgb O2 Saturation 96.6 Sodium 141 Chloride 108 H Glucose Lactate FiO2 36.0 Potassium 3.4 L Carbon Dioxide 20 L Anion Gap 16 BUN 27 H Creatinine 1.0 Est GFR ( Amer) > 60 Est GFR (Non-Af Amer) > 60 Random Glucose 98 Lactic Acid 5.2 H* Calcium 7.7 L Phosphorus 3.4 Magnesium 1.4 L Total Bilirubin 3.3 H AST 591 H ALT 546 H Alkaline Phosphatase 137 H D Total Protein 5.2 L Albumin 2.6 L Globulin 2.6 Albumin/Globulin Ratio 1.0 L Amylase Lipase Venous Blood Potassium Urine Color Urine Appearance Urine pH Ur Specific Irene Urine Protein Urine Glucose (UA) Urine Ketones Urine Blood Urine Nitrate Urine Bilirubin Urine Urobilinogen Ur Leukocyte Esterase Urine RBC Urine WBC Ur Epithelial Cells Amorphous Sediment Urine Bacteria 12/07/17 08:40 WBC 19.4 H D RBC 3.66 Hgb 11.2 L D Hct 33.3 L MCV 91.0 MCH 30.6 MCHC 33.6 RDW 14.9 H Plt Count 124 MPV 10.4 Gran % 94.3 H Lymph % (Auto) 2.7 L Hudson % (Auto) 2.8 Eos % (Auto) 0.1 L Baso % (Auto) 0.1 Gran # 18.32 H Lymph # (Auto) 0.5 L Hudson # (Auto) 0.5 Eos # (Auto) 0.0 Baso # (Auto) 0.01 pCO2 pO2 HCO3 ABG pH ABG Total CO2 ABG O2 Saturation ABG O2 Content ABG Base Excess ABG Hemoglobin ABG Carboxyhemoglobin POC ABG HHb (Measured) ABG Methemoglobin ABG O2 Capacity VBG pH VBG pCO2 VBG HCO3 VBG Total CO2 VBG O2 Sat (Calc) VBG Base Excess VBG Potassium Hgb O2 Saturation Sodium Chloride Glucose Lactate FiO2 Potassium Carbon Dioxide Anion Gap BUN Creatinine Est GFR ( Amer) Est GFR (Non-Af Amer) Random Glucose Lactic Acid Calcium Phosphorus Magnesium Total Bilirubin AST ALT Alkaline Phosphatase Total Protein Albumin Globulin Albumin/Globulin Ratio Amylase Lipase Venous Blood Potassium Urine Color Urine Appearance Urine pH Ur Specific Irene Urine Protein Urine Glucose (UA) Urine Ketones Urine Blood Urine Nitrate Urine Bilirubin Urine Urobilinogen Ur Leukocyte Esterase Urine RBC Urine WBC Ur Epithelial Cells Amorphous Sediment Urine Bacteria Assessment & Plan - Assessment and Plan (Free Text) Assessment: 82 yo male with a PMH of hypertension, CAD s/p cardiac stents, hyperlipidemia, and paraplegia secondary to a prior fall who presents with multiple episodes of non-bloody vomiting and abdominal pain, due to septic shock secondary to choleangitis, currently on 2 pressors in the ICU. Patient also found to have transaminitis. In ED patient was found be febrile with leukopenia, SIRS 4/4. On CT abdomen/pelvis, the gallbladder wall is thickened with pericholecystic fluid and gallstones suspicious for acute cholecystitis, the CBD is dilated, concern for possible calculus and concerning for pyelitis. US of abdomen is pending. Continue meropenem, and vancomycin. Blood and urine cultures pending. IR consulted for US guided gall bladder tube for drainage. Will order cultures for biliary drainage. Case reviewed and discussed with Dr. Zimmerman <Dane Zimmerman - Last Filed: 12/07/17 17:24> Meds - Medications Medications: Current Medications Hydrocortisone Sodium Succinate (Solu-Cortef) 100 mg IVP Q8 NEETA Last Admin: 12/07/17 15:21 Dose: 100 mg Hydromorphone HCl (Dilaudid) 0.5 mg IVP Q6H PRN PRN Reason: Pain, moderate (4-7) Last Admin: 12/07/17 11:26 Dose: 0.5 mg NOREPINEPHRINE BIT/0.9 % NACL (Levophed 4 Mg/ 250 Ml Ns Premixed) 4 mg in 250 mls @ 15 mls/hr IV .[id number] PRN; Protocol; 4 MCG/MIN PRN Reason: TITRATE PER MD ORDER Last Titration: 12/07/17 16:06 Dose: 10 mcg/min, 37.5 mls/hr Vasopressin 20 units/ Sodium (Chloride) 101 mls @ 9.09 mls/hr IV .Q11H7M NEETA; 0.03 U/MIN PRN Reason: Protocol Last Admin: 12/07/17 09:09 Dose: 9.09 mls/hr Meropenem (Merrem Iv 1 Gm Premix) 50 mls @ 100 mls/hr IVPB Q8 NEETA PRN Reason: Protocol Last Admin: 12/07/17 15:20 Dose: 100 mls/hr Vancomycin HCl (Vancomycin 1gm) 1 gm in 250 mls @ 167 mls/hr IVPB Q12H [facility] PRN Reason: Protocol Last Admin: 12/07/17 15:20 Dose: 167 mls/hr Lactated Ringer's (Lactated Ringer's) 1,000 mls @ 175 mls/hr IV .Q5H43M [facility] Last Admin: 12/07/17 15:37 Dose: 175 mls/hr Ibuprofen (Motrin Tab) 400 mg PO Q6H PRN PRN Reason: Fever >100.4 F Last Admin: 12/07/17 06:00 Dose: 400 mg Multivitamins/Minerals (Therapeutic-M Tab) 1 tab PO QAM [facility] Last Admin: 12/07/17 09:06 Dose: Not Given Ondansetron HCl (Zofran Inj) 4 mg IVP Q4H PRN PRN Reason: Nausea/Vomiting Pantoprazole Sodium (Protonix Inj) 40 mg IVP DAILY [facility] Last Admin: 12/07/17 09:06 Dose: 40 mg Results - Vital Signs Recent Vital Signs: Last Vital Signs Temp 97.7 F 12/07/17 16:00 Pulse 57 L 12/07/17 16:10 Resp 21 12/07/17 16:10 BP 109/60 12/07/17 16:00 Pulse Ox 100 12/07/17 16:10 - Labs Result Diagrams: 12/07/17 15:40 12/07/17 15:40 Labs: Laboratory Results - last 24 hr 12/06/17 12/06/17 12/07/17 22:47 23:12 05:00 WBC RBC Hgb Hct MCV MCH MCHC RDW Plt Count MPV Gran % Lymph % (Auto) Hudson % (Auto) Eos % (Auto) Baso % (Auto) Gran # Lymph # (Auto) Hudson # (Auto) Eos # (Auto) Baso # (Auto) Neutrophils % (Manual) Band Neutrophils % Lymphocytes % (Manual) Atypical Lymphs % Monocytes % (Manual) Eosinophils % (Manual) Platelet Evaluation pCO2 pO2 48 HCO3 ABG pH ABG Total CO2 ABG O2 Saturation ABG O2 Content ABG Base Excess ABG Hemoglobin ABG Carboxyhemoglobin POC ABG HHb (Measured) ABG Methemoglobin ABG O2 Capacity VBG pH 7.27 L VBG pCO2 45.0 VBG HCO3 20.7 L VBG Total CO2 22.1 VBG O2 Sat (Calc) 82.1 H VBG Base Excess -6.2 L VBG Potassium 2.9 L Hgb O2 Saturation Sodium 139.0 Chloride 106.0 Glucose 73 L Lactate 5.8 H* FiO2 21.0 Potassium Carbon Dioxide Anion Gap BUN Creatinine Est GFR ( Amer) Est GFR (Non-Af Amer) Random Glucose Lactic Acid Calcium Phosphorus Magnesium Total Bilirubin AST ALT Alkaline Phosphatase Total Protein Albumin Globulin Albumin/Globulin Ratio Amylase 56 Lipase 95 Venous Blood Potassium 2.9 L Urine Color Yellow Urine Appearance Clear Urine pH 6.0 Ur Specific Irene 1.020 Urine Protein Negative Urine Glucose (UA) Negative Urine Ketones Negative Urine Blood Trace-lysed H Urine Nitrate Negative Urine Bilirubin Negative Urine Urobilinogen 1.0 H Ur Leukocyte Esterase Negative Urine RBC 0 - 2 Urine WBC 0 - 2 Ur Epithelial Cells 0 - 2 Amorphous Sediment Occ Urine Bacteria Trace 12/07/17 12/07/17 12/07/17 06:00 06:00 06:18 WBC RBC Hgb Hct MCV MCH MCHC RDW Plt Count MPV Gran % Lymph % (Auto) Hudson % (Auto) Eos % (Auto) Baso % (Auto) Gran # Lymph # (Auto) Hudson # (Auto) Eos # (Auto) Baso # (Auto) Neutrophils % (Manual) Band Neutrophils % Lymphocytes % (Manual) Atypical Lymphs % Monocytes % (Manual) Eosinophils % (Manual) Platelet Evaluation pCO2 25 L pO2 97.0 HCO3 11.7 L ABG pH 7.28 L ABG Total CO2 12.5 L ABG O2 Saturation 98.7 H ABG O2 Content 15.6 ABG Base Excess -13.4 L ABG Hemoglobin 11.4 L ABG Carboxyhemoglobin 1.5 POC ABG HHb (Measured) 1.3 ABG Methemoglobin 0.7 ABG O2 Capacity 15.8 L VBG pH VBG pCO2 VBG HCO3 VBG Total CO2 VBG O2 Sat (Calc) VBG Base Excess VBG Potassium Hgb O2 Saturation 96.6 Sodium 141 Chloride 108 H Glucose Lactate FiO2 36.0 Potassium 3.4 L Carbon Dioxide 20 L Anion Gap 16 BUN 27 H Creatinine 1.0 Est GFR ( Amer) > 60 Est GFR (Non-Af Amer) > 60 Random Glucose 98 Lactic Acid 5.2 H* Calcium 7.7 L Phosphorus 3.4 Magnesium 1.4 L Total Bilirubin 3.3 H AST 591 H ALT 546 H Alkaline Phosphatase 137 H D Total Protein 5.2 L Albumin 2.6 L Globulin 2.6 Albumin/Globulin Ratio 1.0 L Amylase Lipase Venous Blood Potassium Urine Color Urine Appearance Urine pH Ur Specific Irene Urine Protein Urine Glucose (UA) Urine Ketones Urine Blood Urine Nitrate Urine Bilirubin Urine Urobilinogen Ur Leukocyte Esterase Urine RBC Urine WBC Ur Epithelial Cells Amorphous Sediment Urine Bacteria 12/07/17 12/07/17 12/07/17 08:40 15:40 15:40 WBC 19.4 H D 29.0 H* D RBC 3.66 3.75 Hgb 11.2 L D 11.4 L Hct 33.3 L 34.6 L MCV 91.0 92.3 MCH 30.6 30.4 MCHC 33.6 32.9 RDW 14.9 H 15.1 H Plt Count 124 130 MPV 10.4 10.9 Gran % 94.3 H 92.4 H Lymph % (Auto) 2.7 L 2.6 L Hudson % (Auto) 2.8 4.9 Eos % (Auto) 0.1 L 0.0 L Baso % (Auto) 0.1 0.1 Gran # 18.32 H 26.83 H Lymph # (Auto) 0.5 L 0.8 L Hudson # (Auto) 0.5 1.4 H Eos # (Auto) 0.0 0.0 Baso # (Auto) 0.01 0.03 Neutrophils % (Manual) 88 H Band Neutrophils % 4 H Lymphocytes % (Manual) 4 L Atypical Lymphs % 1 H Monocytes % (Manual) 2 Eosinophils % (Manual) 1 Platelet Evaluation Low pCO2 pO2 HCO3 ABG pH ABG Total CO2 ABG O2 Saturation ABG O2 Content ABG Base Excess ABG Hemoglobin ABG Carboxyhemoglobin POC ABG HHb (Measured) ABG Methemoglobin ABG O2 Capacity VBG pH VBG pCO2 VBG HCO3 VBG Total CO2 VBG O2 Sat (Calc) VBG Base Excess VBG Potassium Hgb O2 Saturation Sodium 141 Chloride 111 H Glucose Lactate FiO2 Potassium 4.0 Carbon Dioxide 18 L Anion Gap 16 BUN 28 H Creatinine 1.0 Est GFR ( Amer) > 60 Est GFR (Non-Af Amer) > 60 Random Glucose 88 Lactic Acid Calcium 7.9 L Phosphorus 4.5 Magnesium 2.2 Total Bilirubin 4.8 H AST 417 H D ALT 546 H Alkaline Phosphatase 144 H Total Protein 5.5 L Albumin 2.9 L Globulin 2.7 Albumin/Globulin Ratio 1.1 Amylase Lipase Venous Blood Potassium Urine Color Urine Appearance Urine pH Ur Specific Irene Urine Protein Urine Glucose (UA) Urine Ketones Urine Blood Urine Nitrate Urine Bilirubin Urine Urobilinogen Ur Leukocyte Esterase Urine RBC Urine WBC Ur Epithelial Cells Amorphous Sediment Urine Bacteria Assessment & Plan - Assessment and Plan (Free Text) Assessment: Infectious Diseases Attending Physician Addendum Patient seen and examined, discussed with durable medical equipment technician. I have reviewed the pertinent clinical information for the patient, including history of present illness, medical, personal and social histories, lab results and imaging findings. I agree with the above findings, assessment and plan. In addition, we have started the patient on Vanycomycin and Merrem for septic shock due to acute cholangitis and acute cholecystitis. Will need surgery or ERCP, but may do cholecystostomy first if too unstable to undergo surgery. Discussed with Dr. Farias. Follow up blood cx and bile cx.
[2017-12-07] MEDS ORDERED: Lactated Ringer's 1,000 ML IV SCH (10:39)
[2017-12-07] MEDS ORDERED: Magnesium 2 gm/50 ml NS 2 GM/50 ML BAG IVPB ONE (11:02)
--- NOTE | 2017-12-07 11:10 | CP.PCM.CON ---
History of Present Illness - History of Present Illness History of Present Illness: Seen and examined at bedside in the ICU, chart reviewed. Request for consult is for cholangitis,ERCP. 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 He denies hematemesis, he also had fever and chills, no h/o melena or BRBPR. No c/o diarrhea. The patient recently reported to have just returned from [place], a few days ago, no symptoms during trip. Patient denies having gallbladder issues. Patient had ct scan of abdomen and pelvis that show gallstones, wall thickening suspicious for cholecystitis, CBD 10-13mm , sludge or stone in the CBD. This am patient denies N/V or abdominal pain. Bedside abdominal US in just completed. Had EGD in the past reports "stomach infection", does not recall having colonoscopy. PMH: CAd, s/p stent, HLD,HTN, Spinal cord injury from fall, now paraplegic, bladder outlet obstruction PSH: Spinal surgery,prostate laser vaporization surgery Allergies: diatrizoate sodium Family hx: noncontributory at this time Social HX: (+) smoker, no etoh or illicit drugs MEDS: reviewed as per DONALD ROS: systems reviewed w/ positive findings, see HPI CXR: show congestive changes Past Patient History - Past Medical History & Family History Past Medical History?: Yes Past Family History: Reviewed and not pertinent - Past Social History Smoking Status: Never Smoked - CARDIAC Hx Cardiac Disorders: Yes Hx Hypertension: Yes Hx Pacemaker: No - PULMONARY Hx Respiratory Disorders: No - NEUROLOGICAL Hx Paralysis: No - HEENT Hx HEENT Problems: No - RENAL Hx Chronic Kidney Disease: No - ENDOCRINE/METABOLIC Hx Endocrine Disorders: No - HEMATOLOGICAL/ONCOLOGICAL Hx Blood Transfusions: No Hx Blood Transfusion Reaction: No - INTEGUMENTARY Hx Dermatological Problems: No - MUSCULOSKELETAL/RHEUMATOLOGICAL Hx Musculoskeletal Disorders: Yes (SPINAL CORD INJURY) - GASTROINTESTINAL Hx Gastrointestinal Disorders: No - GENITOURINARY/GYNECOLOGICAL Hx Genitourinary Disorders: Yes Hx Urinary Tract Infection: Yes (2/2 urinary retention ) - PSYCHIATRIC Hx Emotional Abuse: No Hx Physical Abuse: No Hx Substance Use: No - SURGICAL HISTORY Hx Musculoskeletal Surgery: Yes (spinal column surgery) - ANESTHESIA Hx Anesthesia: Yes Hx Anesthesia Reactions: No Hx Malignant Hyperthermia: No Meds Allergies/Adverse Reactions: Allergies Allergy/AdvReac Type Severity Reaction Status Date / Time diatrizoate sodium Allergy Intermediate VERIFY ON Verified 02/17/17 09:50 [From Hypaque] ADM - Medications Medications: Current Medications Hydrocortisone Sodium Succinate (Solu-Cortef) 100 mg IVP Q8 [facility] Last Admin: 12/07/17 09:06 Dose: 100 mg Hydromorphone HCl (Dilaudid) 0.5 mg IVP Q6H PRN PRN Reason: Pain, moderate (4-7) Lactated Ringer's (Lactated Ringer's) 1,000 mls @ 125 mls/hr IV .Q8H [facility] Last Admin: 12/07/17 06:49 Dose: 125 mls/hr NOREPINEPHRINE BIT/0.9 % NACL (Levophed 4 Mg/ 250 Ml Ns Premixed) 4 mg in 250 mls @ 15 mls/hr IV .[id number] PRN; Protocol; 4 MCG/MIN PRN Reason: TITRATE PER MD ORDER Last Titration: 12/07/17 08:00 Dose: 15 mcg/min, 56.25 mls/hr Vasopressin 20 units/ Sodium (Chloride) 101 mls @ 9.09 mls/hr IV .[id number] NEETA; 0.03 U/MIN PRN Reason: Protocol Last Admin: 12/07/17 09:09 Dose: 9.09 mls/hr Meropenem (Merrem Iv 1 Gm Premix) 50 mls @ 100 mls/hr IVPB Q8 NEETA PRN Reason: Protocol Last Admin: 12/07/17 09:29 Dose: 100 mls/hr Vancomycin HCl (Vancomycin 1gm) 1 gm in 250 mls @ 167 mls/hr IVPB Q12H NEETA PRN Reason: Protocol Ibuprofen (Motrin Tab) 400 mg PO Q6H PRN PRN Reason: Fever >100.4 F Last Admin: 12/07/17 06:00 Dose: 400 mg Multivitamins/Minerals (Therapeutic-M Tab) 1 tab PO QAM [facility] Last Admin: 12/07/17 09:06 Dose: Not Given Ondansetron HCl (Zofran Inj) 4 mg IVP Q4H PRN PRN Reason: Nausea/Vomiting Pantoprazole Sodium (Protonix Inj) 40 mg IVP DAILY NEETA Last Admin: 12/07/17 09:06 Dose: 40 mg Physical Exam - Constitutional Appears: No Acute Distress - Head Exam Head Exam: NORMOCEPHALIC - Eye Exam Eye Exam: Normal appearance. absent: Scleral icterus - ENT Exam ENT Exam: Mucous Membranes Moist - Neck Exam Neck exam: Positive for: Normal Inspection - Respiratory Exam Respiratory Exam: NORMAL BREATHING PATTERN. absent: Respiratory Distress - Cardiovascular Exam Cardiovascular Exam: +S1, +S2 - GI/Abdominal Exam GI & Abdominal Exam: Normal Bowel Sounds. absent: Guarding, Organomegaly, Rebound, Tenderness - Extremities Exam Extremities exam: Positive for: pedal pulses present. Negative for: calf tenderness - Neurological Exam Neurological exam: Alert, Oriented x3 - Skin Skin Exam: Dry, Warm Results - Vital Signs Recent Vital Signs: Last Vital Signs Temp 98.4 F 12/07/17 07:00 Pulse 84 12/07/17 07:40 Resp 22 12/07/17 07:30 BP 90/35 L 12/07/17 09:09 Pulse Ox 99 12/07/17 07:30 - Labs Result Diagrams: 12/07/17 08:40 12/07/17 06:00 Labs: Laboratory Results - last 24 hr 12/06/17 12/06/17 12/07/17 22:47 23:12 06:00 WBC RBC Hgb Hct MCV MCH MCHC RDW Plt Count MPV Gran % Lymph % (Auto) [place] % (Auto) Eos % (Auto) Baso % (Auto) Gran # Lymph # (Auto) [place] # (Auto) Eos # (Auto) Baso # (Auto) pCO2 pO2 48 HCO3 ABG pH ABG Total CO2 ABG O2 Saturation ABG O2 Content ABG Base Excess ABG Hemoglobin ABG Carboxyhemoglobin POC ABG HHb (Measured) ABG Methemoglobin ABG O2 Capacity VBG pH 7.27 L VBG pCO2 45.0 VBG HCO3 20.7 L VBG Total CO2 22.1 VBG O2 Sat (Calc) 82.1 H VBG Base Excess -6.2 L VBG Potassium 2.9 L Hgb O2 Saturation Sodium 139.0 141 Chloride 106.0 108 H Glucose 73 L Lactate 5.8 H* FiO2 21.0 Potassium 3.4 L Carbon Dioxide 20 L Anion Gap 16 BUN 27 H Creatinine 1.0 Est GFR ( Amer) > 60 Est GFR (Non-Af Amer) > 60 Random Glucose 98 Lactic Acid Calcium 7.7 L Phosphorus 3.4 Magnesium 1.4 L Total Bilirubin 3.3 H AST 591 H ALT 546 H Alkaline Phosphatase 137 H D Total Protein 5.2 L Albumin 2.6 L Globulin 2.6 Albumin/Globulin Ratio 1.0 L Venous Blood Potassium 2.9 L Urine Color Yellow Urine Appearance Clear Urine pH 6.0 Ur Specific [place] 1.020 Urine Protein Negative Urine Glucose (UA) Negative Urine Ketones Negative Urine Blood Trace-lysed H Urine Nitrate Negative Urine Bilirubin Negative Urine Urobilinogen 1.0 H Ur Leukocyte Esterase Negative Urine RBC 0 - 2 Urine WBC 0 - 2 Ur Epithelial Cells 0 - 2 Amorphous Sediment Occ Urine Bacteria Trace 12/07/17 12/07/17 12/07/17 06:00 06:18 08:40 WBC 19.4 H D RBC 3.66 Hgb 11.2 L D Hct 33.3 L MCV 91.0 MCH 30.6 MCHC 33.6 RDW 14.9 H Plt Count 124 MPV 10.4 Gran % 94.3 H Lymph % (Auto) 2.7 L [place] % (Auto) 2.8 Eos % (Auto) 0.1 L Baso % (Auto) 0.1 Gran # 18.32 H Lymph # (Auto) 0.5 L [place] # (Auto) 0.5 Eos # (Auto) 0.0 Baso # (Auto) 0.01 pCO2 25 L pO2 97.0 HCO3 11.7 L ABG pH 7.28 L ABG Total CO2 12.5 L ABG O2 Saturation 98.7 H ABG O2 Content 15.6 ABG Base Excess -13.4 L ABG Hemoglobin 11.4 L ABG Carboxyhemoglobin 1.5 POC ABG HHb (Measured) 1.3 ABG Methemoglobin 0.7 ABG O2 Capacity 15.8 L VBG pH VBG pCO2 VBG HCO3 VBG Total CO2 VBG O2 Sat (Calc) VBG Base Excess VBG Potassium Hgb O2 Saturation 96.6 Sodium Chloride Glucose Lactate FiO2 36.0 Potassium Carbon Dioxide Anion Gap BUN Creatinine Est GFR ( Amer) Est GFR (Non-Af Amer) Random Glucose Lactic Acid 5.2 H* Calcium Phosphorus Magnesium Total Bilirubin AST ALT Alkaline Phosphatase Total Protein Albumin Globulin Albumin/Globulin Ratio Venous Blood Potassium Urine Color Urine Appearance Urine pH Ur Specific [place] Urine Protein Urine Glucose (UA) Urine Ketones Urine Blood Urine Nitrate Urine Bilirubin Urine Urobilinogen Ur Leukocyte Esterase Urine RBC Urine WBC Ur Epithelial Cells Amorphous Sediment Urine Bacteria Assessment & Plan - Assessment and Plan (Free Text) Assessment: ASSESSMENT: Septic shock, likely secondary to cholangitis, ct scan show multiple gallstones , findings suspicious for cholecystits, dilated CBD w/ sludge or stone, elevated lactic acid and LDH Elevated LFT secondary to above Spinal cord injury, paraplegia CAD, s/; stent HTN PLAN: on levophed and vasopressin on IV antibiotics as per ID continue GI prophylaxsis trend LFT NPO, continue IVF for hydration FU abdominal US patient would benefit from ERCP, plans being made to transfer to [facility] when stable, patient for IR intervention for biliary drain today. As per ICU team, surgery, cardiology, ID and urology on board Thank you for this consult and for allowing us to participate in your patient care, further recommendation based upon clinical course. Case discussed w/ Dr. Kirby covering Dr. Seals.
[2017-12-07] MEDS: HYDROmorphone 0.5 mg/0.5 ml ISec IVP PRN ×2 (11:26→21:15)
[2017-12-07] MEDS ORDERED: Piperacillin/Tazobact 3.375 gm 100 ML IVPB SCH ×2 (12:00)
--- NOTE | 2017-12-07 13:07 | US ---
Date of service: 12/07/2017 HISTORY: cholecystitis/cholangitis COMPARISON: None. TECHNIQUE: Sonographic evaluation of the abdomen. FINDINGS: LIVER: Measures 16.3 cm. Normal echogenicity of the liver parenchyma. No mass. No intrahepatic bile duct dilatation. GALLBLADDER: Multiple gallstones and gallbladder sludge. Edema of the gallbladder wall which measures 11 mm thick. No focal tenderness COMMON BILE DUCT: Measures 7.6 mm. No stones. No dilatation. PANCREAS: Unremarkable as visualized. No mass. No ductal dilatation. RIGHT KIDNEY: Measures 11.5 x 4.6 x 5.5cm. Normal echogenicity. No calculus, mass, or hydronephrosis. LEFT KIDNEY: Measures 13.0 x 6.1 x 6.6cm. Normal echogenicity. No calculus, mass, or hydronephrosis. SPLEEN: Normal in size and contour. No mass. 9.2 x 3.8 x 4.2 AORTA: No aneurysmal dilatation. IVC: Unremarkable. OTHER FINDINGS: None. IMPRESSION: Multiple gallstones and gallbladder sludge. Edema of the gallbladder wall which measures 11 mm thick. No focal tenderness
--- NOTE | 2017-12-07 14:00 | CP.CCUPN ---
<Faustina Zaragoza - Last Filed: 12/07/17 13:47> CCU Subjective - Physician Review Events Since Last Encounter (Free Text): Faustina Zaragoza, PGY-1 ICU Progress Note Patient seen and examined at bedside this morning. He reports poor appetite and difficulty sleeping. Received US guided gallbladder drainage this morning and will get HIDA scan today for evaluation of gallbladder stone in duct. Admits to abdominal pain and nausea. Denies CP, headaches, back pain, urinary complaints and swelling. 12 point ROS noted here, otherwise unremarkable. CCU Objective - Vital Signs / Intake & Output Vital Signs (Last 4 hours): Vital Signs Temp Pulse Resp BP Pulse Ox 12/07/17 12:30 70 16 99 12/07/17 12:20 68 19 98 12/07/17 12:10 69 18 97 12/07/17 12:03 72 91/50 L 98 12/07/17 12:00 97 F L 72 15 93/43 L 99 12/07/17 11:50 72 23 98 12/07/17 11:40 73 23 98 12/07/17 11:30 68 20 99 12/07/17 11:20 70 27 H 98 12/07/17 11:10 74 26 H 98 12/07/17 11:00 77 27 H 99 12/07/17 10:50 76 24 98 12/07/17 10:40 73 24 98 12/07/17 10:30 73 25 H 98 12/07/17 10:20 73 25 H 98 12/07/17 10:10 75 22 99 12/07/17 10:00 78 22 107/53 L 99 12/07/17 09:50 76 30 H 99 Intake and Output (Last 8hrs): Intake & Output 12/06/17 12/07/17 12/07/17 22:59 06:59 14:59 Intake Total 2700 650 Output Total 800 160 Balance 1900 490 Weight 162 lb Intake: IV 2600 650 IVPB 400 Left Antecubital 1000 Right Internal Jugular 1350 Oral 100 Output: Drainage 160 Right Upper Abdomen 160 Urine 800 2-way Urethral 800 Other: Voiding Method Indwelling Catheter - Physical Exam Head: Positive for: Atraumatic, Normocephalic Pupils: Positive for: PERRL Extroacular Muscles: Positive for: EOMI Conjunctiva: Positive for: Normal Mouth: Positive for: Dry. Negative for: Moist Mucous Membranes, Drooling, Trismus, Normal Lips, Normal Tounge, Normal Teeth Neck: Positive for: Normal Range of Motion Respiratory/Chest: Positive for: Clear to Auscultation, Good Air Exchange. Negative for: Respiratory Distress, Accessory Muscle Use Cardiovascular: Positive for: Regular Rate and Rhythm, Normal S1, S2. Negative for: Murmurs Abdomen: Negative for: Tenderness, Distention, Peritoneal Signs, Guarding Back: Positive for: Normal Inspection Upper Extremity: Positive for: Normal Inspection. Negative for: Cyanosis, Edema Lower Extremity: Positive for: Normal Inspection. Negative for: Edema Neurological: Positive for: GCS=15, CN II-XII Intact, Speech Normal, Other ( paraplegia present secondary to falls years ago) Skin: Positive for: Warm, Dry, Normal Color. Negative for: Rashes Psychiatric: Positive for: Alert, Oriented x 3, Normal Insight, Normal Concentration - Medications Active Medications: Active Medications Generic Name Dose Route Start Last Admin Trade Name Freq PRN Reason Stop Dose Admin Hydrocortisone Sodium Succinate 100 mg 12/07/17 09:00 12/07/17 09:06 Solu-Cortef IVP 100 mg Q8 NEETA Administration Hydromorphone HCl 0.5 mg 12/06/17 22:49 12/07/17 11:26 Dilaudid IVP 0.5 mg Q6H PRN Administration Pain, moderate (4-7) NOREPINEPHRINE BIT/0.9 % NACL 4 mg in 250 mls @ 15 mls/hr 12/07/17 01:06 10:53 Levophed 4 Mg/ 250 Ml Ns Premixed IV 14 mcg/min .[id number] PRN 52.5 mls/hr TITRATE PER MD ORDER Titration Protocol 4 MCG/MIN Vasopressin 20 units/ Sodium 101 mls @ 9.09 mls/hr 12/07/17 09:00 12/07/17 09 :09 Chloride IV 9.09 mls/hr .[id number] NEETA Administration Protocol 0.03 U/MIN Meropenem 50 mls @ 100 mls/hr 12/07/17 09:15 12/07/17 09:29 Merrem Iv 1 Gm Premix IVPB 100 mls/hr Q8 NEETA Administration Protocol Vancomycin HCl 1 gm in 250 mls @ 167 mls/hr 12/07/17 09:15 Vancomycin 1gm IVPB Q12H NEETA Protocol Lactated Ringer's 1,000 mls @ 150 mls/hr 12/07/17 10:39 12/07/17 10:50 Lactated Ringer's IV 150 mls/hr .[id number] NEETA Administration Potassium Chloride 10 meq in 100 mls @ 50 mls/hr 12/07/17 11:15 12/07/17 12: 17 Potassium Chloride 10 Meq/100 Ml IVPB 12/07/17 15:14 50 mls/hr Q2H NEETA Administration Ibuprofen 400 mg 12/06/17 23:47 12/07/17 06:00 Motrin Tab PO 400 mg Q6H PRN Administration Fever >100.4 F Multivitamins/Minerals 1 tab 12/07/17 10:00 12/07/17 09:06 Therapeutic-M Tab PO Not Given QAM NEETA Ondansetron HCl 4 mg 12/06/17 22:52 Zofran Inj IVP Q4H PRN Nausea/Vomiting Pantoprazole Sodium 40 mg 12/07/17 10:00 12/07/17 09:06 Protonix Inj IVP 40 mg DAILY NEETA Administration - Patient Studies Lab Studies: Lab Studies 12/07/17 12/07/17 12/07/17 Range/Units 08:40 06:18 06:00 WBC 19.4 H D (4.5-11.0) 10^3/ul RBC 3.66 (3.5-6.1) 10^6/uL Hgb 11.2 L D (14.0-18.0) g/dL Hct 33.3 L (42.0-52.0) % MCV 91.0 (80.0-105.0) fl MCH 30.6 (25.0-35.0) pg MCHC 33.6 (31.0-37.0) g/dl RDW 14.9 H (11.5-14.5) % Plt Count 124 (120.0-450.0) 10^3/uL MPV 10.4 (7.0-11.0) fl Gran % 94.3 H (50.0-68.0) % Lymph % (Auto) 2.7 L (22.0-35.0) % Iron % (Auto) 2.8 (1.0-6.0) % Eos % (Auto) 0.1 L (1.5-5.0) % Baso % (Auto) 0.1 (0.0-3.0) % Gran # 18.32 H (1.4-6.5) Lymph # (Auto) 0.5 L (1.2-3.4) Iron # (Auto) 0.5 (0.1-0.6) Eos # (Auto) 0.0 (0.0-0.7) Baso # (Auto) 0.01 (0.0-2.0) K/mm3 Neutrophils % (Manual) 88 H (50.0-70.0) % Band Neutrophils % 4 H (0-2) % Lymphocytes % (Manual) 4 L (22.0-35.0) % Atypical Lymphs % 1 H (0.0-0.0) % Monocytes % (Manual) 2 (1.0-6.0) % Eosinophils % (Manual) 1 (0.0-3.0) % Platelet Evaluation Low (NORMAL) pCO2 25 L (35-45) mm/Hg pO2 97.0 (30-55) mm/Hg HCO3 11.7 L (21-28) mmol/L ABG pH 7.28 L (7.35-7.45) ABG Total CO2 12.5 L (22-28) mmol.L ABG O2 Saturation 98.7 H (95-98) % ABG O2 Content 15.6 (15-23) ML/dl ABG Base Excess -13.4 L (-2.0-3.0) mmol/L ABG Hemoglobin 11.4 L (11.7-17.4) g/dL ABG Carboxyhemoglobin 1.5 (0.5-1.5) % POC ABG HHb (Measured) 1.3 (0-5) % ABG Methemoglobin 0.7 (0.0-3.0) % ABG O2 Capacity 15.8 L (16-24) mL/dl VBG pH (7.32-7.43) VBG pCO2 (40-60) VBG HCO3 (21-28) mmol/l VBG Total CO2 (22-28) mmol.L VBG O2 Sat (Calc) (40-65) % VBG Base Excess (0.0-2.0) mmol/L VBG Potassium (3.6-5.2) mmol/L Hgb O2 Saturation 96.6 (95.0-98.0) % Sodium (132-148) mmol/L Chloride (98-107) mmol/L Glucose (75-110) mg/dl Lactate (0.7-2.1) mmol/L FiO2 36.0 % Potassium (3.6-5.0) mmol/L Carbon Dioxide (21-33) mmol/L Anion Gap (10-20) BUN (7-21) mg/dL Creatinine (0.8-1.5) mg/dl Est GFR ( Amer) Est GFR (Non-Af Amer) Random Glucose (70-110) mg/dL Lactic Acid 5.2 H* (0.7-2.1) mmol/L Calcium (8.4-10.5) mg/dL Phosphorus (2.5-4.5) mg/dL Magnesium (1.7-2.2) mg/dL Total Bilirubin (0.2-1.3) mg/dL AST (17-59) U/L ALT (7-56) U/L Alkaline Phosphatase (38-126) U/L Total Protein (5.8-8.3) g/dL Albumin (3.0-4.8) g/dL Globulin gm/dL Albumin/Globulin Ratio (1.1-1.8) Amylase (35-125) U/L Lipase (23-300) U/L Venous Blood Potassium (3.6-5.2) mmol/L Urine Color (YELLOW) Urine Appearance (CLEAR) Urine pH (4.7-8.0) Ur Specific Dalton (1.005-1.035) Urine Protein (<30 mg/dL) mg/dL Urine Glucose (UA) (NEGATIVE) mg/dL Urine Ketones (NEGATIVE) mg/dL Urine Blood (NEGATIVE) Urine Nitrate (NEGATIVE) Urine Bilirubin (NEGATIVE) Urine Urobilinogen (<1 E.U./dL) E.U./dL Ur Leukocyte Esterase (NEGATIVE) Zara/uL Urine RBC (0-2) /hpf Urine WBC (0-6) /hpf Ur Epithelial Cells (0-5) /hpf Amorphous Sediment Urine Bacteria (NEG) 12/07/17 12/07/17 12/06/17 Range/Units 06:00 05:00 23:12 WBC (4.5-11.0) 10^3/ul RBC (3.5-6.1) 10^6/uL Hgb (14.0-18.0) g/dL Hct (42.0-52.0) % MCV (80.0-105.0) fl MCH (25.0-35.0) pg MCHC (31.0-37.0) g/dl RDW (11.5-14.5) % Plt Count (120.0-450.0) 10^3/uL MPV (7.0-11.0) fl Gran % (50.0-68.0) % Lymph % (Auto) (22.0-35.0) % Iron % (Auto) (1.0-6.0) % Eos % (Auto) (1.5-5.0) % Baso % (Auto) (0.0-3.0) % Gran # (1.4-6.5) Lymph # (Auto) (1.2-3.4) Iron # (Auto) (0.1-0.6) Eos # (Auto) (0.0-0.7) Baso # (Auto) (0.0-2.0) K/mm3 Neutrophils % (Manual) (50.0-70.0) % Band Neutrophils % (0-2) % Lymphocytes % (Manual) (22.0-35.0) % Atypical Lymphs % (0.0-0.0) % Monocytes % (Manual) (1.0-6.0) % Eosinophils % (Manual) (0.0-3.0) % Platelet Evaluation (NORMAL) pCO2 (35-45) mm/Hg pO2 (30-55) mm/Hg HCO3 (21-28) mmol/L ABG pH (7.35-7.45) ABG Total CO2 (22-28) mmol.L ABG O2 Saturation (95-98) % ABG O2 Content (15-23) ML/dl ABG Base Excess (-2.0-3.0) mmol/L ABG Hemoglobin (11.7-17.4) g/dL ABG Carboxyhemoglobin (0.5-1.5) % POC ABG HHb (Measured) (0-5) % ABG Methemoglobin (0.0-3.0) % ABG O2 Capacity (16-24) mL/dl VBG pH (7.32-7.43) VBG pCO2 (40-60) VBG HCO3 (21-28) mmol/l VBG Total CO2 (22-28) mmol.L VBG O2 Sat (Calc) (40-65) % VBG Base Excess (0.0-2.0) mmol/L VBG Potassium (3.6-5.2) mmol/L Hgb O2 Saturation (95.0-98.0) % Sodium 141 (132-148) mmol/L Chloride 108 H (98-107) mmol/L Glucose (75-110) mg/dl Lactate (0.7-2.1) mmol/L FiO2 % Potassium 3.4 L (3.6-5.0) mmol/L Carbon Dioxide 20 L (21-33) mmol/L Anion Gap 16 (10-20) BUN 27 H (7-21) mg/dL Creatinine 1.0 (0.8-1.5) mg/dl Est GFR ( Amer) > 60 Est GFR (Non-Af Amer) > 60 Random Glucose 98 (70-110) mg/dL Lactic Acid (0.7-2.1) mmol/L Calcium 7.7 L (8.4-10.5) mg/dL Phosphorus 3.4 (2.5-4.5) mg/dL Magnesium 1.4 L (1.7-2.2) mg/dL Total Bilirubin 3.3 H (0.2-1.3) mg/dL AST 591 H (17-59) U/L ALT 546 H (7-56) U/L Alkaline Phosphatase 137 H D (38-126) U/L Total Protein 5.2 L (5.8-8.3) g/dL Albumin 2.6 L (3.0-4.8) g/dL Globulin 2.6 gm/dL Albumin/Globulin Ratio 1.0 L (1.1-1.8) Amylase 56 (35-125) U/L Lipase 95 (23-300) U/L Venous Blood Potassium (3.6-5.2) mmol/L Urine Color Yellow (YELLOW) Urine Appearance Clear (CLEAR) Urine pH 6.0 (4.7-8.0) Ur Specific Dalton 1.020 (1.005-1.035) Urine Protein Negative (<30 mg/dL) mg/dL Urine Glucose (UA) Negative (NEGATIVE) mg/dL Urine Ketones Negative (NEGATIVE) mg/dL Urine Blood Trace-lysed H (NEGATIVE) Urine Nitrate Negative (NEGATIVE) Urine Bilirubin Negative (NEGATIVE) Urine Urobilinogen 1.0 H (<1 E.U./dL) E.U./dL Ur Leukocyte Esterase Negative (NEGATIVE) Zara/uL Urine RBC 0 - 2 (0-2) /hpf Urine WBC 0 - 2 (0-6) /hpf Ur Epithelial Cells 0 - 2 (0-5) /hpf Amorphous Sediment Occ Urine Bacteria Trace (NEG) 12/06/17 Range/Units 22:47 WBC (4.5-11.0) 10^3/ul RBC (3.5-6.1) 10^6/uL Hgb (14.0-18.0) g/dL Hct (42.0-52.0) % MCV (80.0-105.0) fl MCH (25.0-35.0) pg MCHC (31.0-37.0) g/dl RDW (11.5-14.5) % Plt Count (120.0-450.0) 10^3/uL MPV (7.0-11.0) fl Gran % (50.0-68.0) % Lymph % (Auto) (22.0-35.0) % Iron % (Auto) (1.0-6.0) % Eos % (Auto) (1.5-5.0) % Baso % (Auto) (0.0-3.0) % Gran # (1.4-6.5) Lymph # (Auto) (1.2-3.4) Iron # (Auto) (0.1-0.6) Eos # (Auto) (0.0-0.7) Baso # (Auto) (0.0-2.0) K/mm3 Neutrophils % (Manual) (50.0-70.0) % Band Neutrophils % (0-2) % Lymphocytes % (Manual) (22.0-35.0) % Atypical Lymphs % (0.0-0.0) % Monocytes % (Manual) (1.0-6.0) % Eosinophils % (Manual) (0.0-3.0) % Platelet Evaluation (NORMAL) pCO2 (35-45) mm/Hg pO2 48 (30-55) mm/Hg HCO3 (21-28) mmol/L ABG pH (7.35-7.45) ABG Total CO2 (22-28) mmol.L ABG O2 Saturation (95-98) % ABG O2 Content (15-23) ML/dl ABG Base Excess (-2.0-3.0) mmol/L ABG Hemoglobin (11.7-17.4) g/dL ABG Carboxyhemoglobin (0.5-1.5) % POC ABG HHb (Measured) (0-5) % ABG Methemoglobin (0.0-3.0) % ABG O2 Capacity (16-24) mL/dl VBG pH 7.27 L (7.32-7.43) VBG pCO2 45.0 (40-60) VBG HCO3 20.7 L (21-28) mmol/l VBG Total CO2 22.1 (22-28) mmol.L VBG O2 Sat (Calc) 82.1 H (40-65) % VBG Base Excess -6.2 L (0.0-2.0) mmol/L VBG Potassium 2.9 L (3.6-5.2) mmol/L Hgb O2 Saturation (95.0-98.0) % Sodium 139.0 (132-148) mmol/L Chloride 106.0 (98-107) mmol/L Glucose 73 L (75-110) mg/dl Lactate 5.8 H* (0.7-2.1) mmol/L FiO2 21.0 % Potassium (3.6-5.0) mmol/L Carbon Dioxide (21-33) mmol/L Anion Gap (10-20) BUN (7-21) mg/dL Creatinine (0.8-1.5) mg/dl Est GFR ( Amer) Est GFR (Non-Af Amer) Random Glucose (70-110) mg/dL Lactic Acid (0.7-2.1) mmol/L Calcium (8.4-10.5) mg/dL Phosphorus (2.5-4.5) mg/dL Magnesium (1.7-2.2) mg/dL Total Bilirubin (0.2-1.3) mg/dL AST (17-59) U/L ALT (7-56) U/L Alkaline Phosphatase (38-126) U/L Total Protein (5.8-8.3) g/dL Albumin (3.0-4.8) g/dL Globulin gm/dL Albumin/Globulin Ratio (1.1-1.8) Amylase (35-125) U/L Lipase (23-300) U/L Venous Blood Potassium 2.9 L (3.6-5.2) mmol/L Urine Color (YELLOW) Urine Appearance (CLEAR) Urine pH (4.7-8.0) Ur Specific Dalton (1.005-1.035) Urine Protein (<30 mg/dL) mg/dL Urine Glucose (UA) (NEGATIVE) mg/dL Urine Ketones (NEGATIVE) mg/dL Urine Blood (NEGATIVE) Urine Nitrate (NEGATIVE) Urine Bilirubin (NEGATIVE) Urine Urobilinogen (<1 E.U./dL) E.U./dL Ur Leukocyte Esterase (NEGATIVE) Zara/uL Urine RBC (0-2) /hpf Urine WBC (0-6) /hpf Ur Epithelial Cells (0-5) /hpf Amorphous Sediment Urine Bacteria (NEG) Laboratory Results - last 24 hr 12/06/17 12/06/17 12/07/17 22:47 23:12 05:00 WBC RBC Hgb Hct MCV MCH MCHC RDW Plt Count MPV Gran % Lymph % (Auto) Iron % (Auto) Eos % (Auto) Baso % (Auto) Gran # Lymph # (Auto) Iron # (Auto) Eos # (Auto) Baso # (Auto) Neutrophils % (Manual) Band Neutrophils % Lymphocytes % (Manual) Atypical Lymphs % Monocytes % (Manual) Eosinophils % (Manual) Platelet Evaluation pCO2 pO2 48 HCO3 ABG pH ABG Total CO2 ABG O2 Saturation ABG O2 Content ABG Base Excess ABG Hemoglobin ABG Carboxyhemoglobin POC ABG HHb (Measured) ABG Methemoglobin ABG O2 Capacity VBG pH 7.27 L VBG pCO2 45.0 VBG HCO3 20.7 L VBG Total CO2 22.1 VBG O2 Sat (Calc) 82.1 H VBG Base Excess -6.2 L VBG Potassium 2.9 L Hgb O2 Saturation Sodium 139.0 Chloride 106.0 Glucose 73 L Lactate 5.8 H* FiO2 21.0 Potassium Carbon Dioxide Anion Gap BUN Creatinine Est GFR ( Amer) Est GFR (Non-Af Amer) Random Glucose Lactic Acid Calcium Phosphorus Magnesium Total Bilirubin AST ALT Alkaline Phosphatase Total Protein Albumin Globulin Albumin/Globulin Ratio Amylase 56 Lipase 95 Venous Blood Potassium 2.9 L Urine Color Yellow Urine Appearance Clear Urine pH 6.0 Ur Specific Dalton 1.020 Urine Protein Negative Urine Glucose (UA) Negative Urine Ketones Negative Urine Blood Trace-lysed H Urine Nitrate Negative Urine Bilirubin Negative Urine Urobilinogen 1.0 H Ur Leukocyte Esterase Negative Urine RBC 0 - 2 Urine WBC 0 - 2 Ur Epithelial Cells 0 - 2 Amorphous Sediment Occ Urine Bacteria Trace 12/07/17 12/07/17 12/07/17 06:00 06:00 06:18 WBC RBC Hgb Hct MCV MCH MCHC RDW Plt Count MPV Gran % Lymph % (Auto) Iron % (Auto) Eos % (Auto) Baso % (Auto) Gran # Lymph # (Auto) Iron # (Auto) Eos # (Auto) Baso # (Auto) Neutrophils % (Manual) Band Neutrophils % Lymphocytes % (Manual) Atypical Lymphs % Monocytes % (Manual) Eosinophils % (Manual) Platelet Evaluation pCO2 25 L pO2 97.0 HCO3 11.7 L ABG pH 7.28 L ABG Total CO2 12.5 L ABG O2 Saturation 98.7 H ABG O2 Content 15.6 ABG Base Excess -13.4 L ABG Hemoglobin 11.4 L ABG Carboxyhemoglobin 1.5 POC ABG HHb (Measured) 1.3 ABG Methemoglobin 0.7 ABG O2 Capacity 15.8 L VBG pH VBG pCO2 VBG HCO3 VBG Total CO2 VBG O2 Sat (Calc) VBG Base Excess VBG Potassium Hgb O2 Saturation 96.6 Sodium 141 Chloride 108 H Glucose Lactate FiO2 36.0 Potassium 3.4 L Carbon Dioxide 20 L Anion Gap 16 BUN 27 H Creatinine 1.0 Est GFR ( Amer) > 60 Est GFR (Non-Af Amer) > 60 Random Glucose 98 Lactic Acid 5.2 H* Calcium 7.7 L Phosphorus 3.4 Magnesium 1.4 L Total Bilirubin 3.3 H AST 591 H ALT 546 H Alkaline Phosphatase 137 H D Total Protein 5.2 L Albumin 2.6 L Globulin 2.6 Albumin/Globulin Ratio 1.0 L Amylase Lipase Venous Blood Potassium Urine Color Urine Appearance Urine pH Ur Specific Dalton Urine Protein Urine Glucose (UA) Urine Ketones Urine Blood Urine Nitrate Urine Bilirubin Urine Urobilinogen Ur Leukocyte Esterase Urine RBC Urine WBC Ur Epithelial Cells Amorphous Sediment Urine Bacteria 12/07/17 08:40 WBC 19.4 H D RBC 3.66 Hgb 11.2 L D Hct 33.3 L MCV 91.0 MCH 30.6 MCHC 33.6 RDW 14.9 H Plt Count 124 MPV 10.4 Gran % 94.3 H Lymph % (Auto) 2.7 L Iron % (Auto) 2.8 Eos % (Auto) 0.1 L Baso % (Auto) 0.1 Gran # 18.32 H Lymph # (Auto) 0.5 L Iron # (Auto) 0.5 Eos # (Auto) 0.0 Baso # (Auto) 0.01 Neutrophils % (Manual) 88 H Band Neutrophils % 4 H Lymphocytes % (Manual) 4 L Atypical Lymphs % 1 H Monocytes % (Manual) 2 Eosinophils % (Manual) 1 Platelet Evaluation Low pCO2 pO2 HCO3 ABG pH ABG Total CO2 ABG O2 Saturation ABG O2 Content ABG Base Excess ABG Hemoglobin ABG Carboxyhemoglobin POC ABG HHb (Measured) ABG Methemoglobin ABG O2 Capacity VBG pH VBG pCO2 VBG HCO3 VBG Total CO2 VBG O2 Sat (Calc) VBG Base Excess VBG Potassium Hgb O2 Saturation Sodium Chloride Glucose Lactate FiO2 Potassium Carbon Dioxide Anion Gap BUN Creatinine Est GFR ( Amer) Est GFR (Non-Af Amer) Random Glucose Lactic Acid Calcium Phosphorus Magnesium Total Bilirubin AST ALT Alkaline Phosphatase Total Protein Albumin Globulin Albumin/Globulin Ratio Amylase Lipase Venous Blood Potassium Urine Color Urine Appearance Urine pH Ur Specific Dalton Urine Protein Urine Glucose (UA) Urine Ketones Urine Blood Urine Nitrate Urine Bilirubin Urine Urobilinogen Ur Leukocyte Esterase Urine RBC Urine WBC Ur Epithelial Cells Amorphous Sediment Urine Bacteria Critical Care Progress Note - Nutrition Nutrition: Nutrition Category Date Time Status NPO Diet [DIET] Diets 12/06/17 Dinner Ordered Assessment/Plan - Assessment and Plan (Free Text) Assessment: 82 yo male with a PMH of hypertension, CAD s/p cardiac stents, hyperlipidemia, and paraplegia 2/2 fall who presents to the ICU for management of septic shock secondary to acute cholangitis. Surgery and IR are following the patient. Received US gallbladder drainage today and scheduled for HIDA. Plan: Neuro: -maintain normothermia -AAO x3, moving extremities spontaneously past midline Cardio -maintain MAP>65 -will monitor vitals including HR and BP closely -BP and HR noted, trended and reviewed. BP today in the 90s/50s and HR in the 70s. -cont LR @ 150 -On levophed and vasopressin -Cardio on consult, Dr. King Lungs: -SaO2 >90% -supplementary O2 PRN -CXR: no acute findings GI: -CT abd/pelvis shows right ureter dilated, no evidence of stone or hydronephrosis. Multipls gallstones are seen, pericholicystic fluid suspicious for cholecystitis. CBD dilation 10-13mm. -abd US shows multiple gallstone and sludge. Edema of gallbladder wall measuring 11mm. -AST/ALT today 591/546, will monitor -Alk Phos today is 137 from 206 -albumin is 2.6 from 4.2 -received US guided gallbladder drainage -HIDA scan today. If positive gallbladder stone in duct, may need IR to remove stone due to unavailability of ERCP at this time -GI ppx with protonix, NPO -GI on consult Renal: -maintain euvolemia -avoid nephrotoxic agents, hypochloremia -replace electrolytes as needed -BUN/Cr 27/1 -ABG today reads pH/pO2/pCO2/bicarb of 7.28/97/25/11.7. Anion gap metabolic acidosis -Lactic acid today is 5.2 -Urology on consult, Dr Turner for urinary retention ID: -WBC today is 19.4 from 1.8. Will monitor -currently on vanc and merrum -blood culture, urine culture, MRSA screen, culture wound, gallbladder fluid culture/smear pending -motrin prn fevers -ID on consult, Dr. Floyd Endo -maintain euglycemia Heme: -Hg today is 11.2, will monitor -PT/INR WNL yesterday -SCD ppx <Olmedo,Bilal - Last Filed: 12/07/17 15:07> CCU Objective - Vital Signs / Intake & Output Vital Signs (Last 4 hours): Vital Signs Temp Pulse Resp BP Pulse Ox 12/07/17 12:30 70 16 99 12/07/17 12:20 68 19 98 12/07/17 12:10 69 18 97 12/07/17 12:03 72 91/50 L 98 12/07/17 12:00 97 F L 72 15 93/43 L 99 12/07/17 11:50 72 23 98 12/07/17 11:40 73 23 98 12/07/17 11:30 68 20 99 12/07/17 11:20 70 27 H 98 12/07/17 11:10 74 26 H 98 Intake and Output (Last 8hrs): Intake & Output 12/07/17 12/07/17 12/07/17 06:59 14:59 22:59 Intake Total 2700 650 Output Total 800 160 Balance 1900 490 Weight 162 lb Intake: IV 2600 650 IVPB 400 Left Antecubital 1000 Right Internal Jugular 1350 Oral 100 Output: Drainage 160 Right Upper Abdomen 160 Urine 800 2-way Urethral 800 Other: Voiding Method Indwelling Catheter - Medications Active Medications: Active Medications Generic Name Dose Route Start Last Admin Trade Name Freq PRN Reason Stop Dose Admin Hydrocortisone Sodium Succinate 100 mg 12/07/17 09:00 12/07/17 09:06 Solu-Cortef IVP 100 mg Q8 NEETA Administration Hydromorphone HCl 0.5 mg 12/06/17 22:49 12/07/17 11:26 Dilaudid IVP 0.5 mg Q6H PRN Administration Pain, moderate (4-7) NOREPINEPHRINE BIT/0.9 % NACL 4 mg in 250 mls @ 15 mls/hr 12/07/17 01:06 10:53 Levophed 4 Mg/ 250 Ml Ns Premixed IV 14 mcg/min .[id number] PRN 52.5 mls/hr TITRATE PER MD ORDER Titration Protocol 4 MCG/MIN Vasopressin 20 units/ Sodium 101 mls @ 9.09 mls/hr 12/07/17 09:00 12/07/17 09 :09 Chloride IV 9.09 mls/hr .[id number] NEETA Administration Protocol 0.03 U/MIN Meropenem 50 mls @ 100 mls/hr 12/07/17 09:15 12/07/17 09:29 Merrem Iv 1 Gm Premix IVPB 100 mls/hr Q8 NEETA Administration Protocol Vancomycin HCl 1 gm in 250 mls @ 167 mls/hr 12/07/17 09:15 Vancomycin 1gm IVPB Q12H NEETA Protocol Lactated Ringer's 1,000 mls @ 150 mls/hr 12/07/17 10:39 12/07/17 10:50 Lactated Ringer's IV 150 mls/hr .Q6H40M NEETA Administration Potassium Chloride 10 meq in 100 mls @ 50 mls/hr 12/07/17 11:15 12/07/17 12: 17 Potassium Chloride 10 Meq/100 Ml IVPB 12/07/17 15:14 50 mls/hr Q2H NEETA Administration Ibuprofen 400 mg 12/06/17 23:47 12/07/17 06:00 Motrin Tab PO 400 mg Q6H PRN Administration Fever >100.4 F Multivitamins/Minerals 1 tab 12/07/17 10:00 12/07/17 09:06 Therapeutic-M Tab PO Not Given QAM NEETA Ondansetron HCl 4 mg 12/06/17 22:52 Zofran Inj IVP Q4H PRN Nausea/Vomiting Pantoprazole Sodium 40 mg 12/07/17 10:00 12/07/17 09:06 Protonix Inj IVP 40 mg DAILY NEETA Administration - Patient Studies Lab Studies: Lab Studies 12/07/17 12/07/17 12/07/17 Range/Units 08:40 06:18 06:00 WBC 19.4 H D (4.5-11.0) 10^3/ul RBC 3.66 (3.5-6.1) 10^6/uL Hgb 11.2 L D (14.0-18.0) g/dL Hct 33.3 L (42.0-52.0) % MCV 91.0 (80.0-105.0) fl MCH 30.6 (25.0-35.0) pg MCHC 33.6 (31.0-37.0) g/dl RDW 14.9 H (11.5-14.5) % Plt Count 124 (120.0-450.0) 10^3/uL MPV 10.4 (7.0-11.0) fl Gran % 94.3 H (50.0-68.0) % Lymph % (Auto) 2.7 L (22.0-35.0) % Iron % (Auto) 2.8 (1.0-6.0) % Eos % (Auto) 0.1 L (1.5-5.0) % Baso % (Auto) 0.1 (0.0-3.0) % Gran # 18.32 H (1.4-6.5) Lymph # (Auto) 0.5 L (1.2-3.4) Iron # (Auto) 0.5 (0.1-0.6) Eos # (Auto) 0.0 (0.0-0.7) Baso # (Auto) 0.01 (0.0-2.0) K/mm3 Neutrophils % (Manual) 88 H (50.0-70.0) % Band Neutrophils % 4 H (0-2) % Lymphocytes % (Manual) 4 L (22.0-35.0) % Atypical Lymphs % 1 H (0.0-0.0) % Monocytes % (Manual) 2 (1.0-6.0) % Eosinophils % (Manual) 1 (0.0-3.0) % Platelet Evaluation Low (NORMAL) pCO2 25 L (35-45) mm/Hg pO2 97.0 (30-55) mm/Hg HCO3 11.7 L (21-28) mmol/L ABG pH 7.28 L (7.35-7.45) ABG Total CO2 12.5 L (22-28) mmol.L ABG O2 Saturation 98.7 H (95-98) % ABG O2 Content 15.6 (15-23) ML/dl ABG Base Excess -13.4 L (-2.0-3.0) mmol/L ABG Hemoglobin 11.4 L (11.7-17.4) g/dL ABG Carboxyhemoglobin 1.5 (0.5-1.5) % POC ABG HHb (Measured) 1.3 (0-5) % ABG Methemoglobin 0.7 (0.0-3.0) % ABG O2 Capacity 15.8 L (16-24) mL/dl VBG pH (7.32-7.43) VBG pCO2 (40-60) VBG HCO3 (21-28) mmol/l VBG Total CO2 (22-28) mmol.L VBG O2 Sat (Calc) (40-65) % VBG Base Excess (0.0-2.0) mmol/L VBG Potassium (3.6-5.2) mmol/L Hgb O2 Saturation 96.6 (95.0-98.0) % Sodium (132-148) mmol/L Chloride (98-107) mmol/L Glucose (75-110) mg/dl Lactate (0.7-2.1) mmol/L FiO2 36.0 % Potassium (3.6-5.0) mmol/L Carbon Dioxide (21-33) mmol/L Anion Gap (10-20) BUN (7-21) mg/dL Creatinine (0.8-1.5) mg/dl Est GFR ( Amer) Est GFR (Non-Af Amer) Random Glucose (70-110) mg/dL Lactic Acid 5.2 H* (0.7-2.1) mmol/L Calcium (8.4-10.5) mg/dL Phosphorus (2.5-4.5) mg/dL Magnesium (1.7-2.2) mg/dL Total Bilirubin (0.2-1.3) mg/dL AST (17-59) U/L ALT (7-56) U/L Alkaline Phosphatase (38-126) U/L Total Protein (5.8-8.3) g/dL Albumin (3.0-4.8) g/dL Globulin gm/dL Albumin/Globulin Ratio (1.1-1.8) Amylase (35-125) U/L Lipase (23-300) U/L Venous Blood Potassium (3.6-5.2) mmol/L Urine Color (YELLOW) Urine Appearance (CLEAR) Urine pH (4.7-8.0) Ur Specific Dalton (1.005-1.035) Urine Protein (<30 mg/dL) mg/dL Urine Glucose (UA) (NEGATIVE) mg/dL Urine Ketones (NEGATIVE) mg/dL Urine Blood (NEGATIVE) Urine Nitrate (NEGATIVE) Urine Bilirubin (NEGATIVE) Urine Urobilinogen (<1 E.U./dL) E.U./dL Ur Leukocyte Esterase (NEGATIVE) Zara/uL Urine RBC (0-2) /hpf Urine WBC (0-6) /hpf Ur Epithelial Cells (0-5) /hpf Amorphous Sediment Urine Bacteria (NEG) 12/07/17 12/07/17 12/06/17 Range/Units 06:00 05:00 23:12 WBC (4.5-11.0) 10^3/ul RBC (3.5-6.1) 10^6/uL Hgb (14.0-18.0) g/dL Hct (42.0-52.0) % MCV (80.0-105.0) fl MCH (25.0-35.0) pg MCHC (31.0-37.0) g/dl RDW (11.5-14.5) % Plt Count (120.0-450.0) 10^3/uL MPV (7.0-11.0) fl Gran % (50.0-68.0) % Lymph % (Auto) (22.0-35.0) %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
[2017-12-07] MEDS: Vancomycin 1gm in NS 250ml 1 GM/250 ML BAG IVPB SCH ×2 (15:20→21:18)
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
[2017-12-07 16:03] LABS: BASO # 0.03 K/mm3 (0.0-2.0); BASO % 0.1 % (0.0-3.0); GRAN # 26.83 (1.4-6.5); GRAN % 92.4 % (50.0-68.0); HEMOGLOBIN 11.4 g/dL (14.0-18.0); LYMPH # 0.8 (1.2-3.4); LYMPH % 2.6 % (22.0-35.0); MEAN CELL VOLUME 92.3 fl (80.0-105.0); MEAN CORPUSCULAR HEMOGLOBIN 30.4 pg (25.0-35.0); MEAN CORPUSCULAR HGB CONC 32.9 g/dl (31.0-37.0); MEAN PLATELET VOLUME 10.9 fl (7.0-11.0); MONO # 1.4 (0.1-0.6); MONO % 4.9 % (1.0-6.0); RBC 3.75 10^6/uL (3.5-6.1); RED CELL DISTRIBUTION WIDTH 15.1 % (11.5-14.5)
--- NOTE | 2017-12-07 16:07 | NM ---
Date of service: 12/07/2017 PROCEDURE: Nuclear Medicine Hepatobiliary Scan HISTORY: eval for distal CBD obstruction COMPARISON: None available. TECHNIQUE: 7.6 mCi of technetium 99m Mebrofenin was administered intravenously. Planar images of the abdomen were obtained at 5 min intervals to 60 mins. Delayed images were also obtained. FINDINGS: There is hepatic uptake but there is no visualization of the gallbladder or common bile duct up to 60 minutes. There is no bowel visualization. Findings are consistent with common duct obstruction IMPRESSION: Nonvisualization of the gallbladder and common duct consistent with common duct obstruction
[2017-12-07 16:09] LABS: ALB/GLOB RATIO 1.1 (1.1-1.8); ALBUMIN 2.9 g/dL (3.0-4.8); ALT/SGPT 546 U/L (7-56); AST/SGOT 417 U/L (17-59); BLOOD UREA NITROGEN 28 mg/dL (7-21); CALCIUM 7.9 mg/dL (8.4-10.5); GFR AFRICAN-AMERICAN > 60; GFR NON-AFRICAN AMERICAN > 60
[2017-12-07 16:23] VITALS: TEMP 97.7
--- NOTE | 2017-12-07 17:44 | US ---
PROCEDURE: Ultrasound-guided percutaneous cholecystostomy tube placement CLINICAL HISTORY: Severe sepsis. Acute cholecystitis. Poor surgical risk. Needs percutaneous cholecystostomy tube. PHYSICIAN(S): Fabián Lyon M.D. TECHNIQUE: The relative risks and indications for the procedure were explained to the patient's family and consent obtained. The patient was placed in a slight left decubitus position and sonography of the gallbladder performed. This revealed the moderately distended gallbladder with sludge and stones and wall thickening. The skin was prepped and draped in the usual sterile fashion. 1 percent xylocaine was used to anesthetize the skin and soft tissues. Under direct ultrasound guidance, 21 gauge micropuncture needle was advanced in the gallbladder. A 0.018 Gy wire was coiled. Exchange is made for 0.035 support wire. Sequential dilatation was performed subsequent placement of 12 [place] pigtail catheter in the gallbladder. Approximately 80 cc of bassem brown fluid was aspirated. A microbiology specimen was sent. The tube was flushed and secured. The patient tolerated the procedure well. IMPRESSION: 1. Ultrasound-guided percutaneous cholecystostomy tube placement as described above
[2017-12-07 23:30] LABS: ARTERIAL BLOOD GAS HCO3 15.8 mmol/L (21-28); ARTERIAL BLOOD GAS HEMOGLOBIN 11.6 g/dL (11.7-17.4); ARTERIAL BLOOD GAS O2 CAPACITY 15.9 mL/dl (16-24); ARTERIAL BLOOD GAS O2 CONTENT 15.7 ML/dl (15-23); ARTERIAL BLOOD GAS O2 SAT 98.9 % (95-98); ARTERIAL BLOOD GAS PCO2 28 mm/Hg (35-45); ARTERIAL BLOOD GAS PH 7.36 (7.35-7.45); ARTERIAL BLOOD GAS TCO2 16.7 mmol.L (22-28)
[2017-12-07 23:31] LABS: BASO # 0.03 K/mm3 (0.0-2.0); BASO % 0.1 % (0.0-3.0); GRAN # 29.6 (1.4-6.5); GRAN % 92.9 % (50.0-68.0); HEMOGLOBIN 11.7 g/dL (14.0-18.0); LYMPH # 0.9 (1.2-3.4); LYMPH % 2.9 % (22.0-35.0); MEAN CELL VOLUME 92.3 fl (80.0-105.0); MEAN CORPUSCULAR HGB CONC 33.5 g/dl (31.0-37.0); MEAN PLATELET VOLUME 11.1 fl (7.0-11.0); MONO # 1.3 (0.1-0.6); MONO % 4.1 % (1.0-6.0); RBC 3.78 10^6/uL (3.5-6.1); RED CELL DISTRIBUTION WIDTH 15.4 % (11.5-14.5)
[2017-12-07 23:50] LABS: ALBUMIN 2.9 g/dL (3.0-4.8); ALT/SGPT 669 U/L (7-56); AST/SGOT 522 U/L (17-59); BILIRUBIN,DIRECT 3.4 mg/dL (0.0-0.4); BLOOD UREA NITROGEN 29 mg/dL (7-21); CALCIUM 7.8 mg/dL (8.4-10.5); GFR AFRICAN-AMERICAN > 60; GFR NON-AFRICAN AMERICAN > 60
[2017-12-08 00:10] LABS: WHITE BLOOD COUNT 31.9 10^3/ul (4.5-11.0)
[2017-12-08] MEDS: HYDROmorphone 0.5 mg/0.5 ml ISec IVP PRN (02:32)
[2017-12-08] MEDS: Lactated Ringer's 1,000 ML IV SCH (02:32)
[2017-12-08 05:44] LABS: BASO # 0.02 K/mm3 (0.0-2.0); BASO % 0.1 % (0.0-3.0); GRAN # 24.74 (1.4-6.5); GRAN % 91.7 % (50.0-68.0); HEMOGLOBIN 10.6 g/dL (14.0-18.0); LYMPH % 3.7 % (22.0-35.0); MEAN CELL VOLUME 92.3 fl (80.0-105.0); MEAN CORPUSCULAR HEMOGLOBIN 30.1 pg (25.0-35.0); MEAN CORPUSCULAR HGB CONC 32.6 g/dl (31.0-37.0); MEAN PLATELET VOLUME 10.7 fl (7.0-11.0); MONO # 1.2 (0.1-0.6); MONO % 4.5 % (1.0-6.0); RBC 3.52 10^6/uL (3.5-6.1); RED CELL DISTRIBUTION WIDTH 15.4 % (11.5-14.5)
[2017-12-08 05:52] LABS: ARTERIAL BLOOD GAS HCO3 17.6 mmol/L (21-28); ARTERIAL BLOOD GAS O2 SAT 98.9 % (95-98); ARTERIAL BLOOD GAS PCO2 29 mm/Hg (35-45); ARTERIAL BLOOD GAS PH 7.39 (7.35-7.45); ARTERIAL BLOOD GAS TCO2 18.5 mmol.L (22-28)
[2017-12-08 05:54] LABS: BLOOD UREA NITROGEN 28 mg/dL (7-21); GFR AFRICAN-AMERICAN > 60; GFR NON-AFRICAN AMERICAN > 60
[2017-12-08 05:55] LABS: ALBUMIN 2.5 g/dL (3.0-4.8); ALT/SGPT 560 U/L (7-56); AST/SGOT 401 U/L (17-59); CALCIUM 7.6 mg/dL (8.4-10.5)
[2017-12-08] MEDS: Meropenem IV 1 gm in NS 50 ML IVPB SCH (06:04)
[2017-12-08] MEDS ORDERED: Lactated Ringer's 1,000 ML IV SCH ×2 (08:36→09:18)
--- NOTE | 2017-12-08 09:17 | PN ---
Copied To: Ramses Floyd MD Attending MD: Ramses Floyd MD DATE: 12/08/2017 SUBJECTIVE: The patient is in bed, in no acute distress, was seen earlier. The family members are down. He states that he is feeling better. Temperature is down. OBJECTIVE: VITAL SIGNS: On exam, temperature is 97, blood pressure is 133/51, respiratory rate of 16, heart rate of 56. HEENT: Examination is unremarkable. NECK: Supple. LUNGS: Have decreased breath sounds. HEART: Normal S1, S2. ABDOMEN: Soft. There is mild tenderness. No rebound. LABORATORY DATA: Examination reveals a white count of 27,000, hemoglobin of 10, platelets of 91. Chemistries reveals a BUN of 28, creatinine 0.9. LFTs are elevated. Urinalysis is unremarkable. Microbiology reveals a gram-negative shu in the blood and the patient had a HIDA scan consistent with a cystic duct obstruction and ultrasound and CAT scan results are reviewed. ASSESSMENT AND PLAN: This is an 82-year-old male with a history of hypertension, coronary artery disease, cardiac stents, hyperlipidemia, paraplegia secondary to a prior fall presents now with abdominal pain and septic shock with gram-negative shu bacteremia secondary to acute cholangitis and we will discontinue the vancomycin and continue meropenem. Check on the identification sensitivity, gram-negative shu. Awaiting for GI and surgical input, Dr. Fabián Lyon's input. We will make further recommendations pending identification sensitivity, gram-negative shu. Ramses Floyd MD
--- NOTE | 2017-12-08 10:30 | CP.PCM.PN ---
Subjective - Date & Time of Evaluation Date of Evaluation: 12/08/17 Time of Evaluation: 06:00 - Subjective Subjective: General Surgery Note for Dr. Tenorio (covering for Dr. Campos) Patient seen and examined at bedside. Overnight, Patient vasopressor requirement decreased. He was weaned down to 2 mg of Levophed. Vasopressin was discontinued. His MAP has been > 65. Patient will be transferred to [facility] for ERCP by GI team there. He is s/p cholecystotomy tube placement POD#1. Patient has no complaints today. Denies fever/chills, nausea/vomiting, abdominal pain. Cholecystotomy tube 40 cc of output overnight. Urine output was 1300 cc/12 hrs. Objective - Vital Signs/Intake and Output Vital Signs (last 24 hours): Temp Pulse Resp BP Pulse Ox 97.7 F 56 L 23 133/51 L 100 12/07/17 16:00 12/08/17 06:00 12/07/17 17:50 12/07/17 21:27 12/07/17 18:00 Intake and Output: 12/08/17 12/08/17 06:59 18:59 Intake Total 6240 0 Output Total 2725 Balance 3515 0 - Medications Medications: Current Medications Acetaminophen (Tylenol 325mg Tab) 650 mg PO Q6H PRN PRN Reason: Fever >100.4 F Hydrocortisone Sodium Succinate (Solu-Cortef) 100 mg IVP Q8 NEETA Last Admin: 12/08/17 06:05 Dose: 100 mg Hydromorphone HCl (Dilaudid) 0.5 mg IVP Q6H PRN PRN Reason: Pain, moderate (4-7) Last Admin: 12/08/17 02:32 Dose: 0.5 mg NOREPINEPHRINE BIT/0.9 % NACL (Levophed 4 Mg/ 250 Ml Ns Premixed) 4 mg in 250 mls @ 15 mls/hr IV .[id number] PRN; Protocol; 4 MCG/MIN PRN Reason: TITRATE PER MD ORDER Last Titration: 12/08/17 10:06 Dose: 2 mcg/min, 7.5 mls/hr Vasopressin 20 units/ Sodium (Chloride) 101 mls @ 9.09 mls/hr IV .[id number] NEETA; 0.03 U/MIN PRN Reason: Protocol Last Admin: 12/07/17 09:09 Dose: 9.09 mls/hr Meropenem (Merrem Iv 1 Gm Premix) 50 mls @ 100 mls/hr IVPB Q8 NEETA PRN Reason: Protocol Last Admin: 12/08/17 06:04 Dose: 100 mls/hr Lactated Ringer's (Lactated Ringer's) 1,000 mls @ 200 mls/hr IV .Q5H [facility] Last Admin: 12/08/17 10:02 Dose: 200 mls/hr Ondansetron HCl (Zofran Inj) 4 mg IVP Q4H PRN PRN Reason: Nausea/Vomiting Pantoprazole Sodium (Protonix Inj) 40 mg IVP DAILY [facility] Last Admin: 12/08/17 09:26 Dose: 40 mg - Labs Labs: 12/08/17 05:30 12/08/17 05:30 PT 11.4 SECONDS (9.4-12.5) 12/06/17 19:34 INR 1.00 12/06/17 19:34 APTT 25.8 Seconds (25.1-36.5) 12/06/17 19:34 - Constitutional Appears: No Acute Distress - Head Exam Head Exam: ATRAUMATIC, NORMOCEPHALIC - Eye Exam Eye Exam: EOMI Pupil Exam: PERRL - ENT Exam ENT Exam: Mucous Membranes Moist - Respiratory Exam Respiratory Exam: NORMAL BREATHING PATTERN - Cardiovascular Exam Cardiovascular Exam: Bradycardia - GI/Abdominal Exam GI & Abdominal Exam: Soft, Normal Bowel Sounds. absent: Distended, Firm, Guarding, Tenderness, Rebound Additional comments: s/p cholecystotomy tube - Extremities Exam Extremities Exam: Normal Capillary Refill - Neurological Exam Neurological Exam: Alert, Awake - Psychiatric Exam Psychiatric exam: Normal Affect, Normal Mood - Skin Skin Exam: Dry, Intact, Warm Assessment and Plan - Assessment and Plan (Free Text) Assessment: 82 M who presents with septic shock, acute cholecystitis, and acute cholangitis Plan: -NPO -IV fluids -IV ABX -Continue to wean off vasopressors -Strict I's & O's -Monitor drain output -Patient will be transferred to [facility] for ERCP -Further recommendations as per Dr. Tenorio (who is covering for Dr. Campos ) Martin Meyer PGY2
--- NOTE | 2017-12-08 10:45 | CP.PCM.PN ---
<ZoëDaja - Last Filed: 12/08/17 11:35> Subjective - Date & Time of Evaluation Date of Evaluation: 12/08/17 Time of Evaluation: 10:41 - Subjective Subjective: PGY-[address] Garay Pt said that his hemorrhage has been bothering him with mild pain. No other acute complaint Objective - Vital Signs/Intake and Output Vital Signs (last 24 hours): Temp Pulse Resp BP Pulse Ox 97.7 F 56 L 23 133/51 L 100 12/07/17 16:00 12/08/17 06:00 12/07/17 17:50 12/07/17 21:27 12/07/17 18:00 Intake and Output: 12/08/17 12/08/17 06:59 18:59 Intake Total 6240 0 Output Total 2725 Balance 3515 0 - Medications Medications: Current Medications Acetaminophen (Tylenol 325mg Tab) 650 mg PO Q6H PRN PRN Reason: Fever >100.4 F Hydrocortisone Sodium Succinate (Solu-Cortef) 100 mg IVP Q8 NEETA Last Admin: 12/08/17 06:05 Dose: 100 mg Hydromorphone HCl (Dilaudid) 0.5 mg IVP Q6H PRN PRN Reason: Pain, moderate (4-7) Last Admin: 12/08/17 02:32 Dose: 0.5 mg NOREPINEPHRINE BIT/0.9 % NACL (Levophed 4 Mg/ 250 Ml Ns Premixed) 4 mg in 250 mls @ 15 mls/hr IV .[id number] PRN; Protocol; 4 MCG/MIN PRN Reason: TITRATE PER MD ORDER Last Titration: 12/08/17 10:06 Dose: 2 mcg/min, 7.5 mls/hr Vasopressin 20 units/ Sodium (Chloride) 101 mls @ 9.09 mls/hr IV .Q11H7M NEETA; 0.03 U/MIN PRN Reason: Protocol Last Admin: 12/07/17 09:09 Dose: 9.09 mls/hr Meropenem (Merrem Iv 1 Gm Premix) 50 mls @ 100 mls/hr IVPB Q8 NEETA PRN Reason: Protocol Last Admin: 12/08/17 06:04 Dose: 100 mls/hr Lactated Ringer's (Lactated Ringer's) 1,000 mls @ 200 mls/hr IV .Q5H [facility] Last Admin: 12/08/17 10:02 Dose: 200 mls/hr Ondansetron HCl (Zofran Inj) 4 mg IVP Q4H PRN PRN Reason: Nausea/Vomiting Pantoprazole Sodium (Protonix Inj) 40 mg IVP DAILY [facility] Last Admin: 12/08/17 09:26 Dose: 40 mg - Labs Labs: 12/08/17 05:30 12/08/17 05:30 PT 11.4 SECONDS (9.4-12.5) 12/06/17 19:34 INR 1.00 12/06/17 19:34 APTT 25.8 Seconds (25.1-36.5) 12/06/17 19:34 - Constitutional Appears: No Acute Distress - Head Exam Head Exam: ATRAUMATIC, NORMAL INSPECTION, NORMOCEPHALIC - Eye Exam Eye Exam: EOMI, Normal appearance, PERRL. absent: Scleral icterus Pupil Exam: NORMAL ACCOMODATION - ENT Exam ENT Exam: Mucous Membranes Moist - Neck Exam Additional comments: supple - Respiratory Exam Respiratory Exam: Clear to Ausculation Bilateral, NORMAL BREATHING PATTERN. absent: Decreased Breath Sounds, Rales, Rhonchi, Wheezes - Cardiovascular Exam Cardiovascular Exam: REGULAR RHYTHM, +S1, +S2 - GI/Abdominal Exam GI & Abdominal Exam: Soft, Hypoactive Bowel Sounds. absent: Firm, Guarding, Rigid, Tenderness - Extremities Exam Extremities Exam: Normal Capillary Refill. absent: Calf Tenderness, Pedal Edema - Neurological Exam Neurological Exam: Alert, Awake, Oriented x3 - Psychiatric Exam Psychiatric exam: Normal Affect, Normal Mood - Skin Skin Exam: Dry, Warm Assessment and Plan - Assessment and Plan (Free Text) Plan: Mr Almendarez, 82M with PMHx significant for CAD s/p stent x 1 (6-7 years ago), HTN/ HLD, 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yrs ago complicated by bladder outlet obstruction (s/p cysto & prostate laser vaporization in ) C/O abdominal pain & N/V x 1 day. On admission, T 102.8, HR 102. In ICU, hypotension requiring levophed. AST 633. ALT 411. TB 3.3. CT scan shows (+) CBD is dilated and there are high density foci within the distal CBD, concerning for possible calculus. The CBD measures 1 cm. 9 mm nodule in the lingula. Possible neoplastic process is not excluded. The right ureter is enlarged and there is wall enhancement noted, the findings are concerning for pyelitis. There is no calculus noted distally. Septic shock likely due to cholangitis, less likely pyelitis due to renal calculus Gram negative bacteremia (both aerobic and anerobic bottles, 1/2 sets), likely from cholangitis Leukopenia on admission - resolved Leukocytosis s/p stress dose steroid - trending down Fever 102.8 on admission - resolved Lactic acidosis, compensated - improving - Vanco, merem, day 3 - Decrease LR to 100cc/hr. Avoid giving laxis while on IVF. - Per ID, no need to repeat blood culture for now - Levophed taper to 4 this AM to mantain MAP > 65 - solucortef - UCx, BCx, Specimen Cx - NPO because on pressors. D/C oral vitamins Cholangitis with cholecystitis - IR intervention placed blanche drain, POD __1___. Cultures sent for specimen - Per GI, will be transfer to [facility] for ERCP today - HIDA: Nonvisualization of GB and bileduct consistent with common duct obstruction - Abdominal u/s: multiple gallstones w sludge. Edema of GB wall 11mm thick - dilaudid/zofran PRN Thromobocyopenia, new onset - likely reactive to sepsis. Talked to ID doctor re : possible induced by merem. Per ID, continue treatment with merem Hx CAD s/p stent x 1 (6-7 years ago), HTN/HLD Hx paraplegia s/p fall 40yrs ago - pressure ulcer precauseion Hx bladder outlet obstruction s/p cysto & prostate laser vaporization in Feb, 2017 - monitor i/o Allergy to Hypaque (Diatrizoate Sodium) Prophylaxis - protonix, SCD s/r/d/w Dr Garay <Wilmer Garay S - Last Filed: 12/08/17 21:20> Objective - Vital Signs/Intake and Output Vital Signs (last 24 hours): Temp Pulse Resp BP Pulse Ox 97.7 F 62 28 H 129/58 L 97 12/07/17 16:00 08/15/18 12:30 12/08/17 12:30 12/08/17 12:00 12/08/17 12:30 Intake and Output: 12/08/17 12/09/17 18:59 06:59 Intake Total 0 Balance 0 - Labs Labs: 12/08/17 05:30 12/08/17 05:30 PT 11.4 SECONDS (9.4-12.5) 12/06/17 19:34 INR 1.00 12/06/17 19:34 APTT 25.8 Seconds (25.1-36.5) 12/06/17 19:34 Assessment and Plan - Assessment and Plan (Free Text) Plan: Pt seen and examined. I have reviewed the note of the medical practitioners and agree with it. I have discussed the assessment and plan with the resident. I have reviewed the patient's labs and medications. Pt with septic shock. It is improving. He will need to go to [place] for ERCP. No GI is available to the hospital. Sepsis is improving. Spoke to family.
--- NOTE | 2017-12-08 11:09 | CP.PCM.PN ---
Subjective - Date & Time of Evaluation Date of Evaluation: 12/08/17 Time of Evaluation: 09:40 - Subjective Subjective: S&E at bedside, family present. Had cholecystostomy tube in place drain total of 280 cc, currently scant drain appear bloody. Patient is awake and alert, denies N/V or abdominal discomfort. No fever or chills. Remains on Levophed, attempt to wean but BP drops, off Vasopressin. Remains NPO. Objective - Vital Signs/Intake and Output Vital Signs (last 24 hours): Temp Pulse Resp BP Pulse Ox 97.7 F 56 L 23 133/51 L 100 12/07/17 16:00 12/08/17 06:00 12/07/17 17:50 12/07/17 21:27 12/07/17 18:00 Intake and Output: 12/08/17 12/08/17 06:59 18:59 Intake Total 6240 0 Output Total 2725 Balance 3515 0 - Medications Medications: Current Medications Acetaminophen (Tylenol 325mg Tab) 650 mg PO Q6H PRN PRN Reason: Fever >100.4 F Hydrocortisone Sodium Succinate (Solu-Cortef) 100 mg IVP Q8 [facility]ETA Last Admin: 12/08/17 06:05 Dose: 100 mg Hydromorphone HCl (Dilaudid) 0.5 mg IVP Q6H PRN PRN Reason: Pain, moderate (4-7) Last Admin: 12/08/17 02:32 Dose: 0.5 mg NOREPINEPHRINE BIT/0.9 % NACL (Levophed 4 Mg/ 250 Ml Ns Premixed) 4 mg in 250 mls @ 15 mls/hr IV .[id number] PRN; Protocol; 4 MCG/MIN PRN Reason: TITRATE PER MD ORDER Last Titration: 12/08/17 10:06 Dose: 2 mcg/min, 7.5 mls/hr Vasopressin 20 units/ Sodium (Chloride) 101 mls @ 9.09 mls/hr IV .Q11H7M NEETA; 0.03 U/MIN PRN Reason: Protocol Last Admin: 12/07/17 09:09 Dose: 9.09 mls/hr Meropenem (Merrem Iv 1 Gm Premix) 50 mls @ 100 mls/hr IVPB Q8 NEETA PRN Reason: Protocol Last Admin: 08/15/18 06:04 Dose: 100 mls/hr Lactated Ringer's (Lactated Ringer's) 1,000 mls @ 200 mls/hr IV .Q5H [facility] Last Admin: 12/08/17 10:02 Dose: 200 mls/hr Ondansetron HCl (Zofran Inj) 4 mg IVP Q4H PRN PRN Reason: Nausea/Vomiting Pantoprazole Sodium (Protonix Inj) 40 mg IVP DAILY [facility] Last Admin: 12/08/17 09:26 Dose: 40 mg - Labs Labs: 12/08/17 05:30 12/08/17 05:30 PT 11.4 SECONDS (9.4-12.5) 12/06/17 19:34 INR 1.00 12/06/17 19:34 APTT 25.8 Seconds (25.1-36.5) 12/06/17 19:34 - Constitutional Appears: No Acute Distress - Head Exam Head Exam: NORMOCEPHALIC - Eye Exam Eye Exam: Normal appearance. absent: Scleral icterus - ENT Exam ENT Exam: Mucous Membranes Moist - Neck Exam Neck Exam: Normal Inspection - Respiratory Exam Respiratory Exam: Clear to Ausculation Bilateral, NORMAL BREATHING PATTERN. absent: Respiratory Distress - Cardiovascular Exam Cardiovascular Exam: +S1, +S2 - GI/Abdominal Exam GI & Abdominal Exam: Soft, Normal Bowel Sounds. absent: Guarding, Tenderness, Rebound Additional comments: RUQ cholecystotomy drain noted, dressing dry and intact, scant drain appear bloody - Extremities Exam Extremities Exam: absent: Calf Tenderness, Pedal Edema - Neurological Exam Neurological Exam: Alert, Awake, Oriented x3 - Skin Skin Exam: Dry, Warm Assessment and Plan - Assessment and Plan (Free Text) Assessment: ASSESSMENT: Septic shock, likely secondary to cholangitis, ct scan show multiple gallstones , findings suspicious for cholecystits, dilated CBD w/ sludge or stone, abdominal US done and CBD 7.6 mm, no visualized CBD stone, elevated lactic acid and LDH on admission, s/p HIDA scan ,delayed films show no gallbladder activity , consistent with cycstic duct obstruction, activity noted in CBD and drainage bag. S/P cholecytotomy drain Elevated LFT secondary to above Spinal cord injury, paraplegia CAD, s/; stent HTN PLAN: on levophed and vasopressin currently on hold on IV antibiotics as per ID continue GI prophylaxsis trend LFT on PPI NPO, continue IVF for hydration surgery, cardiology, ID on board Planning to transfer patient to [place] for ERCP, Dr. Kirby has been in contact with Dr. Blackmon, utility repairer in [facility] to perform ERCP. As of note awaiting bed for transfer , patient remains on Levophed. Family at bedside and aware of the current plans. Case discussed w/ Dr. Kirby covering Dr. Seals.
--- NOTE | 2017-12-08 11:17 | CP.CCUPN ---
<Faustina Zaragoza - Last Filed: 12/08/17 11:12> CCU Subjective - Physician Review Events Since Last Encounter (Free Text): Faustina Zaragoza, PGY-1 ICU Progress Note Patient seen and examined at bedside this morning. No acute events overnight and patient states he slept well. Patient to be transferred to [facility] for ERCP. Currently he denies CP, SOB, abdominal pain, headaches, back pain and fevers. 12 point ROS noted here, otherwise unremarkable. CCU Objective - Vital Signs / Intake & Output Intake and Output (Last 8hrs): Intake & Output 12/07/17 12/08/17 12/08/17 22:59 06:59 14:59 Intake Total 2891 6240 0 Output Total 314 2700 Balance 2577 3540 0 Intake: IV 2891 6200 0 IVF 1650 4800 IVPB 350 900 Levophed 551 300 Vasopressin 90 Other 40 Output: Drainage 100 Right Upper Abdomen 100 Urine 314 2600 2-way Urethral 314 2600 - Physical Exam Head: Positive for: Atraumatic, Normocephalic Pupils: Positive for: PERRL Extroacular Muscles: Positive for: EOMI Conjunctiva: Positive for: Normal Mouth: Positive for: Dry. Negative for: Moist Mucous Membranes, Drooling, Trismus, Normal Lips, Normal Tounge, Normal Teeth Neck: Positive for: Normal Range of Motion Respiratory/Chest: Positive for: Clear to Auscultation, Good Air Exchange. Negative for: Respiratory Distress, Accessory Muscle Use Cardiovascular: Positive for: Regular Rate and Rhythm, Normal S1, S2. Negative for: Murmurs Abdomen: Positive for: Other (cholecystostomy present draining biliary fluid). Negative for: Tenderness, Distention, Peritoneal Signs, Guarding Back: Positive for: Normal Inspection Upper Extremity: Positive for: Normal Inspection. Negative for: Cyanosis, Edema Lower Extremity: Positive for: Normal Inspection. Negative for: Edema Neurological: Positive for: GCS=15, CN II-XII Intact, Speech Normal, Other ( paraplegia present secondary to falls years ago) Skin: Positive for: Warm, Dry, Normal Color. Negative for: Rashes Psychiatric: Positive for: Alert, Oriented x 3, Normal Insight, Normal Concentration - Medications Active Medications: Active Medications Generic Name Dose Route Start Last Admin Trade Name Freq PRN Reason Stop Dose Admin Acetaminophen 650 mg 12/08/17 09:01 Tylenol 325mg Tab PO Q6H PRN Fever >100.4 F Hydrocortisone Sodium Succinate 100 mg 12/07/17 09:00 12/08/17 06:05 Solu-Cortef IVP 100 mg Q8 NEETA Administration Hydromorphone HCl 0.5 mg 12/06/17 22:49 12/08/17 02:32 Dilaudid IVP 0.5 mg Q6H PRN Administration Pain, moderate (4-7) NOREPINEPHRINE BIT/0.9 % NACL 4 mg in 250 mls @ 15 mls/hr 12/07/17 01:06 10:06 Levophed 4 Mg/ 250 Ml Ns Premixed IV 2 mcg/min .[id number] PRN 7.5 mls/hr TITRATE PER MD ORDER Titration Protocol 4 MCG/MIN Vasopressin 20 units/ Sodium 101 mls @ 9.09 mls/hr 12/07/17 09:00 12/07/17 09 :09 Chloride IV 9.09 mls/hr .[id number] NEETA Administration Protocol 0.03 U/MIN Meropenem 50 mls @ 100 mls/hr 12/07/17 09:15 12/08/17 06:04 Merrem Iv 1 Gm Premix IVPB 100 mls/hr Q8 NEETA Administration Protocol Lactated Ringer's 1,000 mls @ 200 mls/hr 12/08/17 09:18 12/08/17 10:02 Lactated Ringer's IV 200 mls/hr .Q5H NEETA Administration Ondansetron HCl 4 mg 12/06/17 22:52 Zofran Inj IVP Q4H PRN Nausea/Vomiting Pantoprazole Sodium 40 mg 12/07/17 10:00 12/08/17 09:26 Protonix Inj IVP 40 mg DAILY NEETA Administration - Patient Studies Lab Studies: Microbiology Studies 12/07/17 12:30 Gram Stain - Final Bile Lab Studies 12/08/17 12/08/17 12/08/17 Range/Units 05:30 05:30 05:30 WBC 27.0 H* (4.5-11.0) 10^3/ul RBC 3.52 (3.5-6.1) 10^6/uL Hgb 10.6 L (14.0-18.0) g/dL Hct 32.5 L (42.0-52.0) % MCV 92.3 (80.0-105.0) fl MCH 30.1 (25.0-35.0) pg MCHC 32.6 (31.0-37.0) g/dl RDW 15.4 H (11.5-14.5) % Plt Count 91 L (120.0-450.0) 10^3/uL MPV 10.7 (7.0-11.0) fl Gran % 91.7 H (50.0-68.0) % Lymph % (Auto) 3.7 L (22.0-35.0) % Hart % (Auto) 4.5 (1.0-6.0) % Eos % (Auto) 0.0 L (1.5-5.0) % Baso % (Auto) 0.1 (0.0-3.0) % Gran # 24.74 H (1.4-6.5) Lymph # (Auto) 1.0 L (1.2-3.4) Hart # (Auto) 1.2 H (0.1-0.6) Eos # (Auto) 0.0 (0.0-0.7) Baso # (Auto) 0.02 (0.0-2.0) K/mm3 pCO2 29 L (35-45) mm/Hg pO2 91.0 (80-100) mm/Hg HCO3 17.6 L (21-28) mmol/L ABG pH 7.39 (7.35-7.45) ABG Total CO2 18.5 L (22-28) mmol.L ABG O2 Saturation 98.9 H (95-98) % ABG O2 Content (15-23) ML/dl ABG Base Excess -6.0 L (-2.0-3.0) mmol/L ABG Hemoglobin (11.7-17.4) g/dL ABG Carboxyhemoglobin (0.5-1.5) % POC ABG HHb (Measured) (0-5) % ABG Methemoglobin (0.0-3.0) % ABG O2 Capacity (16-24) mL/dl ABG Potassium 3.4 L (3.6-5.2) mmol/L Hgb O2 Saturation (95.0-98.0) % Glucose 96 (75-110) mg/dl Lactate 2.3 H (0.7-2.1) mmol/L FiO2 32.0 % Sodium 141.0 144 (132-148) mmol/L Potassium 3.7 (3.6-5.0) mmol/L Chloride 114.0 H 111 H (98-107) mmol/L Carbon Dioxide 21 (21-33) mmol/L Anion Gap 15 (10-20) BUN 28 H (7-21) mg/dL Creatinine 0.9 (0.8-1.5) mg/dl Est GFR ( Amer) > 60 Est GFR (Non-Af Amer) > 60 Random Glucose 96 (70-110) mg/dL Calcium 7.6 L (8.4-10.5) mg/dL Phosphorus 3.7 (2.5-4.5) mg/dL Magnesium 2.0 (1.7-2.2) mg/dL Total Bilirubin 3.5 H (0.2-1.3) mg/dL Direct Bilirubin (0.0-0.4) mg/dL AST 401 H D (17-59) U/L ALT 560 H (7-56) U/L Alkaline Phosphatase 121 (38-126) U/L Total Protein 5.1 L (5.8-8.3) g/dL Albumin 2.5 L (3.0-4.8) g/dL Globulin 2.6 gm/dL Albumin/Globulin Ratio 1.0 L (1.1-1.8) Arterial Blood Potassium 3.4 L (3.6-5.2) mmol/L 12/07/17 12/07/17 12/07/17 Range/Units 23:23 23:23 23:20 WBC 31.9 H* (4.5-11.0) 10^3/ul RBC 3.78 (3.5-6.1) 10^6/uL Hgb 11.7 L (14.0-18.0) g/dL Hct 34.9 L (42.0-52.0) % MCV 92.3 (80.0-105.0) fl MCH 31.0 (25.0-35.0) pg MCHC 33.5 (31.0-37.0) g/dl RDW 15.4 H (11.5-14.5) % Plt Count 114 L (120.0-450.0) 10^3/uL MPV 11.1 H (7.0-11.0) fl Gran % 92.9 H (50.0-68.0) % Lymph % (Auto) 2.9 L (22.0-35.0) % Hart % (Auto) 4.1 (1.0-6.0) % Eos % (Auto) 0.0 L (1.5-5.0) % Baso % (Auto) 0.1 (0.0-3.0) % Gran # 29.60 H (1.4-6.5) Lymph # (Auto) 0.9 L (1.2-3.4) Hart # (Auto) 1.3 H (0.1-0.6) Eos # (Auto) 0.0 (0.0-0.7) Baso # (Auto) 0.03 (0.0-2.0) K/mm3 pCO2 28 L (35-45) mm/Hg pO2 87.0 (80-100) mm/Hg HCO3 15.8 L (21-28) mmol/L ABG pH 7.36 (7.35-7.45) ABG Total CO2 16.7 L (22-28) mmol.L ABG O2 Saturation 98.9 H (95-98) % ABG O2 Content 15.7 (15-23) ML/dl ABG Base Excess -8.4 L (-2.0-3.0) mmol/L ABG Hemoglobin 11.6 L (11.7-17.4) g/dL ABG Carboxyhemoglobin 2.1 H (0.5-1.5) % POC ABG HHb (Measured) 1.1 (0-5) % ABG Methemoglobin 1.3 (0.0-3.0) % ABG O2 Capacity 15.9 L (16-24) mL/dl ABG Potassium (3.6-5.2) mmol/L Hgb O2 Saturation 95.5 (95.0-98.0) % Glucose (75-110) mg/dl Lactate (0.7-2.1) mmol/L FiO2 28.0 % Sodium 142 (132-148) mmol/L Potassium 3.9 (3.6-5.0) mmol/L Chloride 110 H (98-107) mmol/L Carbon Dioxide 19 L (21-33) mmol/L Anion Gap 18 (10-20) BUN 29 H (7-21) mg/dL Creatinine 0.9 (0.8-1.5) mg/dl Est GFR ( Amer) > 60 Est GFR (Non-Af Amer) > 60 Random Glucose 92 (70-110) mg/dL Calcium 7.8 L (8.4-10.5) mg/dL Phosphorus 4.2 (2.5-4.5) mg/dL Magnesium 2.1 (1.7-2.2) mg/dL Total Bilirubin 4.7 H (0.2-1.3) mg/dL Direct Bilirubin 3.4 H (0.0-0.4) mg/dL AST 522 H D (17-59) U/L ALT 669 H (7-56) U/L Alkaline Phosphatase 138 H (38-126) U/L Total Protein 5.8 (5.8-8.3) g/dL Albumin 2.9 L (3.0-4.8) g/dL Globulin 2.9 gm/dL Albumin/Globulin Ratio 1.0 L (1.1-1.8) Arterial Blood Potassium (3.6-5.2) mmol/L 12/07/17 12/07/17 Range/Units 15:40 15:40 WBC 29.0 H* D (4.5-11.0) 10^3/ul RBC 3.75 (3.5-6.1) 10^6/uL Hgb 11.4 L (14.0-18.0) g/dL Hct 34.6 L (42.0-52.0) % MCV 92.3 (80.0-105.0) fl MCH 30.4 (25.0-35.0) pg MCHC 32.9 (31.0-37.0) g/dl RDW 15.1 H (11.5-14.5) % Plt Count 130 (120.0-450.0) 10^3/uL MPV 10.9 (7.0-11.0) fl Gran % 92.4 H (50.0-68.0) % Lymph % (Auto) 2.6 L (22.0-35.0) % Hart % (Auto) 4.9 (1.0-6.0) % Eos % (Auto) 0.0 L (1.5-5.0) % Baso % (Auto) 0.1 (0.0-3.0) % Gran # 26.83 H (1.4-6.5) Lymph # (Auto) 0.8 L (1.2-3.4) Hart # (Auto) 1.4 H (0.1-0.6) Eos # (Auto) 0.0 (0.0-0.7) Baso # (Auto) 0.03 (0.0-2.0) K/mm3 pCO2 (35-45) mm/Hg pO2 (80-100) mm/Hg HCO3 (21-28) mmol/L ABG pH (7.35-7.45) ABG Total CO2 (22-28) mmol.L ABG O2 Saturation (95-98) % ABG O2 Content (15-23) ML/dl ABG Base Excess (-2.0-3.0) mmol/L ABG Hemoglobin (11.7-17.4) g/dL ABG Carboxyhemoglobin (0.5-1.5) % POC ABG HHb (Measured) (0-5) % ABG Methemoglobin (0.0-3.0) % ABG O2 Capacity (16-24) mL/dl ABG Potassium (3.6-5.2) mmol/L Hgb O2 Saturation (95.0-98.0) % Glucose (75-110) mg/dl Lactate (0.7-2.1) mmol/L FiO2 % Sodium 141 (132-148) mmol/L Potassium 4.0 (3.6-5.0) mmol/L Chloride 111 H (98-107) mmol/L Carbon Dioxide 18 L (21-33) mmol/L Anion Gap 16 (10-20) BUN 28 H (7-21) mg/dL Creatinine 1.0 (0.8-1.5) mg/dl Est GFR ( Amer) > 60 Est GFR (Non-Af Amer) > 60 Random Glucose 88 (70-110) mg/dL Calcium 7.9 L (8.4-10.5) mg/dL Phosphorus 4.5 (2.5-4.5) mg/dL Magnesium 2.2 (1.7-2.2) mg/dL Total Bilirubin 4.8 H (0.2-1.3) mg/dL Direct Bilirubin (0.0-0.4) mg/dL AST 417 H D (17-59) U/L ALT 546 H (7-56) U/L Alkaline Phosphatase 144 H (38-126) U/L Total Protein 5.5 L (5.8-8.3) g/dL Albumin 2.9 L (3.0-4.8) g/dL Globulin 2.7 gm/dL Albumin/Globulin Ratio 1.1 (1.1-1.8) Arterial Blood Potassium (3.6-5.2) mmol/L Laboratory Results - last 24 hr 12/07/17 12/07/17 12/07/17 15:40 15:40 23:20 WBC 29.0 H* D RBC 3.75 Hgb 11.4 L Hct 34.6 L MCV 92.3 MCH 30.4 MCHC 32.9 RDW 15.1 H Plt Count 130 MPV 10.9 Gran % 92.4 H Lymph % (Auto) 2.6 L Hart % (Auto) 4.9 Eos % (Auto) 0.0 L Baso % (Auto) 0.1 Gran # 26.83 H Lymph # (Auto) 0.8 L Hart # (Auto) 1.4 H Eos # (Auto) 0.0 Baso # (Auto) 0.03 pCO2 28 L pO2 87.0 HCO3 15.8 L ABG pH 7.36 ABG Total CO2 16.7 L ABG O2 Saturation 98.9 H ABG O2 Content 15.7 ABG Base Excess -8.4 L ABG Hemoglobin 11.6 L ABG Carboxyhemoglobin 2.1 H POC ABG HHb (Measured) 1.1 ABG Methemoglobin 1.3 ABG O2 Capacity 15.9 L ABG Potassium Hgb O2 Saturation 95.5 Glucose Lactate FiO2 28.0 Sodium 141 Potassium 4.0 Chloride 111 H Carbon Dioxide 18 L Anion Gap 16 BUN 28 H Creatinine 1.0 Est GFR ( Amer) > 60 Est GFR (Non-Af Amer) > 60 Random Glucose 88 Calcium 7.9 L Phosphorus 4.5 Magnesium 2.2 Total Bilirubin 4.8 H Direct Bilirubin AST 417 H D ALT 546 H Alkaline Phosphatase 144 H Total Protein 5.5 L Albumin 2.9 L Globulin 2.7 Albumin/Globulin Ratio 1.1 Arterial Blood Potassium 12/07/17 12/07/17 12/08/17 23:23 23:23 05:30 WBC 31.9 H* 27.0 H* RBC 3.78 3.52 Hgb 11.7 L 10.6 L Hct 34.9 L 32.5 L MCV 92.3 92.3 MCH 31.0 30.1 MCHC 33.5 32.6 RDW 15.4 H 15.4 H Plt Count 114 L 91 L MPV 11.1 H 10.7 Gran % 92.9 H 91.7 H Lymph % (Auto) 2.9 L 3.7 L Hart % (Auto) 4.1 4.5 Eos % (Auto) 0.0 L 0.0 L Baso % (Auto) 0.1 0.1 Gran # 29.60 H 24.74 H Lymph # (Auto) 0.9 L 1.0 L Hart # (Auto) 1.3 H 1.2 H Eos # (Auto) 0.0 0.0 Baso # (Auto) 0.03 0.02 pCO2 pO2 HCO3 ABG pH ABG Total CO2 ABG O2 Saturation ABG O2 Content ABG Base Excess ABG Hemoglobin ABG Carboxyhemoglobin POC ABG HHb (Measured) ABG Methemoglobin ABG O2 Capacity ABG Potassium Hgb O2 Saturation Glucose Lactate FiO2 Sodium 142 Potassium 3.9 Chloride 110 H Carbon Dioxide 19 L Anion Gap 18 BUN 29 H Creatinine 0.9 Est GFR ( Amer) > 60 Est GFR (Non-Af Amer) > 60 Random Glucose 92 Calcium 7.8 L Phosphorus 4.2 Magnesium 2.1 Total Bilirubin 4.7 H Direct Bilirubin 3.4 H AST 522 H D ALT 669 H Alkaline Phosphatase 138 H Total Protein 5.8 Albumin 2.9 L Globulin 2.9 Albumin/Globulin Ratio 1.0 L Arterial Blood Potassium 12/08/17 12/08/17 05:30 05:30 WBC RBC Hgb Hct MCV MCH MCHC RDW Plt Count MPV Gran % Lymph % (Auto) Hart % (Auto) Eos % (Auto) Baso % (Auto) Gran # Lymph # (Auto) Hart # (Auto) Eos # (Auto) Baso # (Auto) pCO2 29 L pO2 91.0 HCO3 17.6 L ABG pH 7.39 ABG Total CO2 18.5 L ABG O2 Saturation 98.9 H ABG O2 Content ABG Base Excess -6.0 L ABG Hemoglobin ABG Carboxyhemoglobin POC ABG HHb (Measured) ABG Methemoglobin ABG O2 Capacity ABG Potassium 3.4 L Hgb O2 Saturation Glucose 96 Lactate 2.3 H FiO2 32.0 Sodium 144 141.0 Potassium 3.7 Chloride 111 H 114.0 H Carbon Dioxide 21 Anion Gap 15 BUN 28 H Creatinine 0.9 Est GFR ( Amer) > 60 Est GFR (Non-Af Amer) > 60 Random Glucose 96 Calcium 7.6 L Phosphorus 3.7 Magnesium 2.0 Total Bilirubin 3.5 H Direct Bilirubin AST 401 H D ALT 560 H Alkaline Phosphatase 121 Total Protein 5.1 L Albumin 2.5 L Globulin 2.6 Albumin/Globulin Ratio 1.0 L Arterial Blood Potassium 3.4 L Critical Care Progress Note - Nutrition Nutrition: Nutrition Category Date Time Status NPO Diet [DIET] Diets 12/06/17 Dinner Ordered Assessment/Plan - Assessment and Plan (Free Text) Assessment: 82 yo male with a PMH of hypertension, CAD s/p cardiac stents, hyperlipidemia, and paraplegia 2/2 fall who presents to the ICU for management of septic shock secondary to acute cholangitis. To be transferred today to [facility] for ERCP. Plan: Neuro: -maintain normothermia -AAO x3, moving extremities spontaneously past midline Cardio -maintain MAP>65 -will monitor vitals including HR and BP -BP and HR noted, trended and reviewed. BP today in the 80-100s/40-50s and HR in the 50s. -on LR @ 200 -On levophed. vasopressin on hold -Cardio on consult, Dr. King Lungs: -SaO2 >90% -supplementary O2 PRN -CXR: no acute findings GI: -CT abd/pelvis shows right ureter dilated, no evidence of stone or hydronephrosis. Multipls gallstones are seen, pericholicystic fluid suspicious for cholecystitis. CBD dilation 10-13mm. -abd US shows multiple gallstone and sludge. Edema of gallbladder wall measuring 11mm. -HIDA scan showed non visualization of gallbladder, CBD obstruction -AST/ALT today is 401/560 from previous 591/546, will monitor -Alk Phos today is 121 from 137 -albumin is 2.5 from 2.6 -received US guided gallbladder cholecystostomy -GI ppx with protonix, NPO -GI on consult Renal: -maintain euvolemia -avoid nephrotoxic agents, hypochloremia -replace electrolytes as needed -ABG today reads pH/pO2/pCO2/bicarb of 7.39/91/29/17.6 today. -I/0: 9781/3174 with balance of 6.7 liters. 1300cc of urine overnight -Urology on consult, Dr Turner for urinary retention ID: -WBC today is 27 from 31.9 -currently on merrum -blood culture shows gram negative shu. Urine culture, MRSA screen, culture wound, gallbladder fluid culture/smear pending -motrin prn fevers -ID on consult, Dr. Floyd Endo -maintain euglycemia Heme: -Hg today is 10.6 -SCD ppx <Olmedo,Bilal - Last Filed: 12/08/17 15:41> CCU Objective - Vital Signs / Intake & Output Vital Signs (Last 4 hours): Vital Signs Pulse Resp BP Pulse Ox 12/08/17 12:30 62 28 H 97 12/08/17 12:20 56 L 29 H 97 12/08/17 12:10 59 L 21 97 12/08/17 12:00 59 L 20 129/58 L 98 12/08/17 11:50 61 14 98 12/08/17 11:40 53 L 18 97 Intake and Output (Last 8hrs): Intake & Output 12/08/17 12/08/17 12/08/17 06:59 14:59 22:59 Intake Total 6240 0 Output Total 2700 Balance 3540 0 Weight 162 lb Intake: IV 6200 0 IVF 4800 IVPB 900 Levophed 300 Other 40 Output: Drainage 100 Right Upper Abdomen 100 Urine 2600 2-way Urethral 2600 - Patient Studies Lab Studies: Microbiology Studies 12/07/17 00:01 MRSA Culture (Admit) - Final Naris MRSA NOT DETECTED 12/07/17 12:30 Gram Stain - Final Bile Lab Studies 12/08/17 12/08/1712/08/18 Range/Units 05:30 05:30 05:30 WBC 27.0 H* (4.5-11.0) 10^3/ul RBC 3.52 (3.5-6.1) 10^6/uL Hgb 10.6 L (14.0-18.0) g/dL Hct 32.5 L (42.0-52.0) % MCV 92.3 (80.0-105.0) fl MCH 30.1 (25.0-35.0) pg MCHC 32.6 (31.0-37.0) g/dl RDW 15.4 H (11.5-14.5) % Plt Count 91 L (120.0-450.0) 10^3/uL MPV 10.7 (7.0-11.0) fl Gran % 91.7 H (50.0-68.0) % Lymph % (Auto) 3.7 L (22.0-35.0) % Hart % (Auto) 4.5 (1.0-6.0) % Eos % (Auto) 0.0 L (1.5-5.0) % Baso % (Auto) 0.1 (0.0-3.0) % Gran # 24.74 H (1.4-6.5) Lymph # (Auto) 1.0 L (1.2-3.4) Hart # (Auto) 1.2 H (0.1-0.6) Eos # (Auto) 0.0 (0.0-0.7) Baso # (Auto) 0.02 (0.0-2.0) K/mm3 pCO2 29 L (35-45) mm/Hg pO2 91.0 (80-100) mm/Hg HCO3 17.6 L (21-28) mmol/L ABG pH 7.39 (7.35-7.45) ABG Total CO2 18.5 L (22-28) mmol.L ABG O2 Saturation 98.9 H (95-98) % ABG O2 Content (15-23) ML/dl ABG Base Excess -6.0 L (-2.0-3.0) mmol/L ABG Hemoglobin (11.7-17.4) g/dL ABG Carboxyhemoglobin (0.5-1.5) % POC ABG HHb (Measured) (0-5) % ABG Methemoglobin (0.0-3.0) % ABG O2 Capacity (16-24) mL/dl ABG Potassium 3.4 L (3.6-5.2) mmol/L Hgb O2 Saturation (95.0-98.0) % Glucose 96 (75-110) mg/dl Lactate 2.3 H (0.7-2.1) mmol/L FiO2 32.0 % Sodium 141.0 144 (132-148) mmol/L Potassium 3.7 (3.6-5.0) mmol/L Chloride 114.0 H 111 H (98-107) mmol/L Carbon Dioxide 21 (21-33) mmol/L Anion Gap 15 (10-20) BUN 28 H (7-21) mg/dL Creatinine 0.9 (0.8-1.5) mg/dl Est GFR ( Amer) > 60 Est GFR (Non-Af Amer) > 60 Random Glucose 96 (70-110) mg/dL Calcium 7.6 L (8.4-10.5) mg/dL Phosphorus 3.7 (2.5-4.5) mg/dL Magnesium 2.0 (1.7-2.2) mg/dL Total Bilirubin 3.5 H (0.2-1.3) mg/dL Direct Bilirubin (0.0-0.4) mg/dL AST 401 H D (17-59) U/L ALT 560 H (7-56) U/L Alkaline Phosphatase 121 (38-126) U/L Total Protein 5.1 L (5.8-8.3) g/dL Albumin 2.5 L (3.0-4.8) g/dL Globulin 2.6 gm/dL Albumin/Globulin Ratio 1.0 L (1.1-1.8) Arterial Blood Potassium 3.4 L (3.6-5.2) mmol/L 12/07/17 12/07/17 12/07/17 Range/Units 23:23 23:23 23:20 WBC 31.9 H* (4.5-11.0) 10^3/ul RBC 3.78 (3.5-6.1) 10^6/uL Hgb 11.7 L (14.0-18.0) g/dL Hct 34.9 L (42.0-52.0) % MCV 92.3 (80.0-105.0) fl MCH 31.0 (25.0-35.0) pg MCHC 33.5 (31.0-37.0) g/dl RDW 15.4 H (11.5-14.5) % Plt Count 114 L (120.0-450.0) 10^3/uL MPV 11.1 H (7.0-11.0) fl Gran % 92.9 H (50.0-68.0) % Lymph % (Auto) 2.9 L (22.0-35.0) % Hart % (Auto) 4.1 (1.0-6.0) % Eos % (Auto) 0.0 L (1.5-5.0) % Baso % (Auto) 0.1 (0.0-3.0) % Gran # 29.60 H (1.4-6.5) Lymph # (Auto) 0.9 L (1.2-3.4) Hart # (Auto) 1.3 H (0.1-0.6) Eos # (Auto) 0.0 (0.0-0.7) Baso # (Auto) 0.03 (0.0-2.0) K/mm3 pCO2 28 L (35-45) mm/Hg pO2 87.0 (80-100) mm/Hg HCO3 15.8 L (21-28) mmol/L ABG pH 7.36 (7.35-7.45) ABG Total CO2 16.7 L (22-28) mmol.L ABG O2 Saturation 98.9 H (95-98) % ABG O2 Content 15.7 (15-23) ML/dl ABG Base Excess -8.4 L (-2.0-3.0) mmol/L ABG Hemoglobin 11.6 L (11.7-17.4) g/dL ABG Carboxyhemoglobin 2.1 H (0.5-1.5) % POC ABG HHb (Measured) 1.1 (0-5) % ABG Methemoglobin 1.3 (0.0-3.0) % ABG O2 Capacity 15.9 L (16-24) mL/dl ABG Potassium (3.6-5.2) mmol/L Hgb O2 Saturation 95.5 (95.0-98.0) % Glucose (75-110) mg/dl Lactate (0.7-2.1) mmol/L FiO2 28.0 % Sodium 142 (132-148) mmol/L Potassium 3.9 (3.6-5.0) mmol/L Chloride 110 H (98-107) mmol/L Carbon Dioxide 19 L (21-33) mmol/L Anion Gap 18 (10-20) BUN 29 H (7-21) mg/dL Creatinine 0.9 (0.8-1.5) mg/dl Est GFR ( Amer) > 60 Est GFR (Non-Af Amer) > 60 Random Glucose 92 (70-110) mg/dL Calcium 7.8 L (8.4-10.5) mg/dL Phosphorus 4.2 (2.5-4.5) mg/dL Magnesium 2.1 (1.7-2.2) mg/dL Total Bilirubin 4.7 H (0.2-1.3) mg/dL Direct Bilirubin 3.4 H (0.0-0.4) mg/dL AST 522 H D (17-59) U/L ALT 669 H (7-56) U/L Alkaline Phosphatase 138 H (38-126) U/L Total Protein 5.8 (5.8-8.3) g/dL Albumin 2.9 L (3.0-4.8) g/dL Globulin 2.9 gm/dL Albumin/Globulin Ratio 1.0 L (1.1-1.8) Arterial Blood Potassium (3.6-5.2) mmol/L 12/07/17 12/07/17 Range/Units 15:40 15:40 WBC 29.0 H* D (4.5-11.0) 10^3/ul RBC 3.75 (3.5-6.1) 10^6/uL Hgb 11.4 L (14.0-18.0) g/dL Hct 34.6 L (42.0-52.0) % MCV 92.3 (80.0-105.0) fl MCH 30.4 (25.0-35.0) pg MCHC 32.9 (31.0-37.0) g/dl RDW 15.1 H (11.5-14.5) % Plt Count 130 (120.0-450.0) 10^3/uL MPV 10.9 (7.0-11.0) fl Gran % 92.4 H (50.0-68.0) % Lymph % (Auto) 2.6 L (22.0-35.0) % Hart % (Auto) 4.9 (1.0-6.0) % Eos % (Auto) 0.0 L (1.5-5.0) % Baso % (Auto) 0.1 (0.0-3.0) % Gran # 26.83 H (1.4-6.5) Lymph # (Auto) 0.8 L (1.2-3.4) Hart # (Auto) 1.4 H (0.1-0.6) Eos # (Auto) 0.0 (0.0-0.7) Baso # (Auto) 0.03 (0.0-2.0) K/mm3 pCO2 (35-45) mm/Hg pO2 (80-100) mm/Hg HCO3 (21-28) mmol/L ABG pH (7.35-7.45) ABG Total CO2 (22-28) mmol.L ABG O2 Saturation (95-98) % ABG O2 Content (15-23) ML/dl ABG Base Excess (-2.0-3.0) mmol/L ABG Hemoglobin (11.7-17.4) g/dL ABG Carboxyhemoglobin (0.5-1.5) % POC ABG HHb (Measured) (0-5) % ABG Methemoglobin (0.0-3.0) % ABG O2 Capacity (16-24) mL/dl ABG Potassium (3.6-5.2) mmol/L Hgb O2 Saturation (95.0-98.0) % Glucose (75-110) mg/dl Lactate (0.7-2.1) mmol/L FiO2 % Sodium 141 (132-148) mmol/L Potassium 4.0 (3.6-5.0) mmol/L Chloride 111 H (98-107) mmol/L Carbon Dioxide 18 L (21-33) mmol/L Anion Gap 16 (10-20) BUN 28 H (7-21) mg/dL Creatinine 1.0 (0.8-1.5) mg/dl Est GFR ( Amer) > 60 Est GFR (Non-Af Amer) > 60 Random Glucose 88 (70-110) mg/dL Calcium 7.9 L (8.4-10.5) mg/dL Phosphorus 4.5 (2.5-4.5) mg/dL Magnesium 2.2 (1.7-2.2) mg/dL Total Bilirubin 4.8 H (0.2-1.3) mg/dL Direct Bilirubin (0.0-0.4) mg/dL AST 417 H D (17-59) U/L ALT 546 H (7-56) U/L Alkaline Phosphatase 144 H (38-126) U/L Total Protein 5.5 L (5.8-8.3) g/dL Albumin 2.9 L (3.0-4.8) g/dL Globulin 2.7 gm/dL Albumin/Globulin Ratio 1.1 (1.1-1.8) Arterial Blood Potassium (3.6-5.2) mmol/L Laboratory Results - last 24 hr 12/07/17 12/07/17 12/07/17 15:40 15:40 23:20 WBC 29.0 H* D RBC 3.75 Hgb 11.4 L Hct 34.6 L MCV 92.3 MCH 30.4 MCHC 32.9 RDW 15.1 H Plt Count 130 MPV 10.9 Gran % 92.4 H Lymph % (Auto) 2.6 L Hart % (Auto) 4.9 Eos % (Auto) 0.0 L Baso % (Auto) 0.1 Gran # 26.83 H Lymph # (Auto) 0.8 L Hart # (Auto) 1.4 H Eos # (Auto) 0.0 Baso # (Auto) 0.03 pCO2 28 L pO2 87.0 HCO3 15.8 L ABG pH 7.36 ABG Total CO2 16.7 L ABG O2 Saturation 98.9 H ABG O2 Content 15.7 ABG Base Excess -8.4 L ABG Hemoglobin 11.6 L ABG Carboxyhemoglobin 2.1 H POC ABG HHb (Measured) 1.1 ABG Methemoglobin 1.3 ABG O2 Capacity 15.9 L ABG Potassium Hgb O2 Saturation 95.5 Glucose Lactate FiO2 28.0 Sodium 141 Potassium 4.0 Chloride 111 H Carbon Dioxide 18 L Anion Gap 16 BUN 28 H Creatinine 1.0 Est GFR ( Amer) > 60 Est GFR (Non-Af Amer) > 60 Random Glucose 88 Calcium 7.9 L Phosphorus 4.5 Magnesium 2.2 Total Bilirubin 4.8 H Direct Bilirubin AST 417 H D ALT 546 H Alkaline Phosphatase 144 H Total Protein 5.5 L Albumin 2.9 L Globulin 2.7 Albumin/Globulin Ratio 1.1 Arterial Blood Potassium 12/07/17 12/07/17 12/08/17 23:23 23:23 05:30 WBC 31.9 H* 27.0 H* RBC 3.78 3.52 Hgb 11.7 L 10.6 L Hct 34.9 L 32.5 L MCV 92.3 92.3 MCH 31.0 30.1 MCHC 33.5 32.6 RDW 15.4 H 15.4 H Plt Count 114 L 91 L MPV 11.1 H 10.7 Gran % 92.9 H 91.7 H Lymph % (Auto) 2.9 L 3.7 L Hart % (Auto) 4.1 4.5 Eos % (Auto) 0.0 L 0.0 L Baso % (Auto) 0.1 0.1 Gran # 29.60 H 24.74 H Lymph # (Auto) 0.9 L 1.0 L Hart # (Auto) 1.3 H 1.2 H Eos # (Auto) 0.0 0.0 Baso # (Auto) 0.03 0.02 pCO2 pO2 HCO3 ABG pH ABG Total CO2 ABG O2 Saturation ABG O2 Content ABG Base Excess ABG Hemoglobin ABG Carboxyhemoglobin POC ABG HHb (Measured) ABG Methemoglobin ABG O2 Capacity ABG Potassium Hgb O2 Saturation Glucose Lactate FiO2 Sodium 142 Potassium 3.9 Chloride 110 H Carbon Dioxide 19 L Anion Gap 18 BUN 29 H Creatinine 0.9 Est GFR ( Amer) > 60 Est GFR (Non-Af Amer) > 60 Random Glucose 92 Calcium 7.8 L Phosphorus 4.2 Magnesium 2.1 Total Bilirubin 4.7 H Direct Bilirubin 3.4 H AST 522 H D ALT 669 H Alkaline Phosphatase 138 H Total Protein 5.8 Albumin 2.9 L Globulin 2.9 Albumin/Globulin Ratio 1.0 L Arterial Blood Potassium 12/08/17 12/08/17 05:30 05:30 WBC RBC Hgb Hct MCV MCH MCHC RDW Plt Count MPV Gran % Lymph % (Auto) Hart % (Auto) Eos % (Auto) Baso % (Auto) Gran # Lymph # (Auto) Hart # (Auto) Eos # (Auto) Baso # (Auto) pCO2 29 L pO2 91.0 HCO3 17.6 L ABG pH 7.39 ABG Total CO2 18.5 L ABG O2 Saturation 98.9 H ABG O2 Content ABG Base Excess -6.0 L ABG Hemoglobin ABG Carboxyhemoglobin POC ABG HHb (Measured) ABG Methemoglobin ABG O2 Capacity ABG Potassium 3.4 L Hgb O2 Saturation Glucose 96 Lactate 2.3 H FiO2 32.0 Sodium 144 141.0 Potassium 3.7 Chloride 111 H 114.0 H Carbon Dioxide 21 Anion Gap 15 BUN 28 H Creatinine 0.9 Est GFR ( Amer) > 60 Est GFR (Non-Af Amer) > 60 Random Glucose 96 Calcium 7.6 L Phosphorus 3.7 Magnesium 2.0 Total Bilirubin 3.5 H Direct Bilirubin AST 401 H D ALT 560 H Alkaline Phosphatase 121 Total Protein 5.1 L Albumin 2.5 L Globulin 2.6 Albumin/Globulin Ratio 1.0 L Arterial Blood Potassium 3.4 L Critical Care Progress Note - Nutrition Nutrition: Nutrition Category Date Time Status NPO Diet [DIET] Diets 12/06/17 Dinner Ordered Addendum Addendum: 12/08/17 15:39 ICU Attending Addendum: Patient seen and examined. Case reviewed on round with housestaff. Agree with resident note above with the following additions/exceptions: 82M hx of hypertension, CAD s/p stents, and paraplegia secondary to a fall who p /w non-bloody vomiting and abdominal pain with a CT abd showing the gallbladder wall is thickened with pericholecystic fluid and gallstones suspicious for acute cholecystitis, as well as CBD is dilation. S/p perc blanche HIDA showing CBD dilation and suggestive of obstruction; will need ECRP not avail at [facility] [place] [place] at the moment, ok to transfer to [place] I called pig lead melter helper at [place] and updated him on the patient, Cont levophed f/u on specimen of GNR Rest of care as noted above. Shanika Olmedo MD [facility] time : 30 mins
[2017-12-08 13:08] VITALS: BP 129/58; PULSE 62; RESP 28; O2SAT 97
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
--- NOTE | 2017-12-09 08:19 | PN ---
Copied To: Nathan Kirby MD Attending MD: Nathan Kirby MD ADDENDUM DATE: 12/08/2017 Addendum to progress note performed by Alena Menard. I have seen this patient earlier. He appears to be clinically improving. His blood pressure is 130/80 on 4 mcg of Levophed. He is making urine. He has minimal abdominal pain. He has not had any further fevers or chills. His LFTs are slowly trending downward. His white blood cell count is down to 27,000. His AST is down to 401 with an ALT of 516 and total bilirubin of 3.5. He has minimal drainage from a cholecystotomy tube. Hepatobiliary scan did show nuclear material in the common bile duct and small bowel. The patient has acute cholecystitis, possibly gangrenous cholecystitis and possibly ascending cholangitis from a common duct stone. He will need an ERCP. Recommendations are to continue IV antibiotics. I believe he is stable enough to be transferred to [facility]. I have spoken with Dr. Nathan Orourke who is agreed to accept this patient at [place] for ERCP. Nathan Kirby MD
== END 2017-12-08 13:55 | disposition short-term general hospital (02) | DRG 871 ==
LOC: ED 18:55 → ERH 22:19 → ICU 23:31
PROVIDERS: ADMIT Surgery; ATTEND Surgery
PROC: 0F9430Z Drainage of Gallbladder with Drainage Device, Percutaneous Approach (ICD-10-PCS; principal; 2017-12-07)
PROC: 05HM33Z Insertion of Infusion Device into Right Internal Jugular Vein, Percutaneous Approach (ICD-10-PCS; 2017-12-07)
PROC: B543ZZA Ultrasonography of Right Jugular Veins, Guidance (ICD-10-PCS; 2017-12-07)
PROC: BD47ZZZ Ultrasonography of Gastrointestinal Tract (ICD-10-PCS; 2017-12-07)
DX: A41.51 Sepsis due to Escherichia coli [E. coli] (principal); R65.21 Severe sepsis with septic shock; K83.0 Cholangitis; G82.20 Paraplegia, unspecified; K80.01 Calculus of gallbladder with acute cholecystitis with obstruction; A41.81 Sepsis due to Enterococcus; E78.5 Hyperlipidemia, unspecified; F17.200 Nicotine dependence, unspecified, uncomplicated; I10 Essential (primary) hypertension; I25.10 Atherosclerotic heart disease of native coronary artery without angina pectoris; N32.0 Bladder-neck obstruction; D72.819 Decreased white blood cell count, unspecified; Z79.02 Long term (current) use of antithrombotics/antiplatelets; Z87.440 Personal history of urinary (tract) infections; Z95.5 Presence of coronary angioplasty implant and graft; Z99.3 Dependence on wheelchair; Z88.8 Allergy status to other drugs, medicaments and biological substances

== ENCOUNTER 2017-12-26 02:39 | Emergency (ER) | payer MEDICARE, BC ==
[2017-12-26 02:49] VITALS: BMI 25.0
[2017-12-26 02:50] VITALS: RESP 18; TEMP 98.9; O2SAT 100
[2017-12-26] MEDS ORDERED: Sodium Chloride 0.9% 1,000 ML IV STA (03:01)
[2017-12-26 03:57] LABS: BASO # 0.03 K/mm3 (0.0-2.0); BASO % 0.3 % (0.0-3.0); BLOOD UREA NITROGEN 20 mg/dL (7-21); CALCIUM 8.7 mg/dL (8.4-10.5); EOS # 0.6 (0.0-0.7); EOS % 5.1 % (1.5-5.0); GFR NON-AFRICAN AMERICAN > 60; GRAN # 7.75 (1.4-6.5); GRAN % 71.6 % (50.0-68.0); HEMOGLOBIN 11.5 g/dL (14.0-18.0); LYMPH # 1.8 (1.2-3.4); LYMPH % 16.3 % (22.0-35.0); MEAN CELL VOLUME 89.2 fl (80.0-105.0); MEAN CORPUSCULAR HEMOGLOBIN 30.3 pg (25.0-35.0); MEAN PLATELET VOLUME 11.1 fl (7.0-11.0); MONO # 0.7 (0.1-0.6); MONO % 6.7 % (1.0-6.0); RBC 3.79 10^6/uL (3.5-6.1); RED CELL DISTRIBUTION WIDTH 14.2 % (11.5-14.5); WHITE BLOOD COUNT 10.8 10^3/ul (4.5-11.0)
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
[2017-12-26 05:54] VITALS: BP 123/72; PULSE 78
== END 2017-12-26 05:43 | disposition home or self-care (01) ==
LOC: ED 02:39
DX: R19.7 Diarrhea, unspecified (principal); E78.5 Hyperlipidemia, unspecified; I10 Essential (primary) hypertension; I25.10 Atherosclerotic heart disease of native coronary artery without angina pectoris
CPT/HCPCS: 80048; 85025; 87324; 99283; J7030

== ENCOUNTER 2018-01-27 06:05 | Day surgery (SDC) | payer MEDICARE, BC ==
[2018-01-27 07:12] LABS: ALB/GLOB RATIO 1.1 (1.1-1.8); ALBUMIN 3.8 g/dL (3.0-4.8); BILIRUBIN,DIRECT 0.2 mg/dL (0.0-0.4)
[2018-01-27] MEDS ORDERED: Midazolam 2 MG/2 ML VIAL ONE (07:17)
[2018-01-27] MEDS ORDERED: Propofol 10 mg/ml Inj (20 ML) ONE (07:17)
[2018-01-27] MEDS ORDERED: Etomidate 20 mg/10ml Inj IV ONE (07:20)
[2018-01-27] MEDS ORDERED: Rocuronium 10 mg/ml (5 ml) ONE (07:20)
[2018-01-27 07:47] VITALS: RESP 18
[2018-01-27] MEDS ORDERED: Bupivacaine 0.5% 50 ML IJ ONE (07:59)
[2018-01-27] MEDS ORDERED: CeFAZolin 1 gm in NS 100ml IVPB ONE (08:05)
[2018-01-27] MEDS ORDERED: Bupivacaine 0.5% Inj(30mL) IJ ONE ×2 (08:15)
[2018-01-27] MEDS ORDERED: Neostigmine Methylsulfate 3mg/3ml Syringe IV ONE (09:19)
[2018-01-27] MEDS ORDERED: Desflurane Inhalation Anesthetic Liq (240 ml) ONE (09:21)
[2018-01-27] MEDS ORDERED: Morphine 2 mg/ml ISec IVP PRN ×2 (09:54→09:58)
--- NOTE | 2018-01-27 09:56 | PCM.SURG1 ---
Surgeon's Initial Post Op Note - Surgeon's Notes Surgeon: Dr. Campos Repairer Kiln Car: Dr. Weber PGY3 Type of Anesthesia: General Endo Pre-Operative Diagnosis: chronic cholecystitis Operative Findings: see operative report Post-Operative Diagnosis: same Operation Performed: laparoscopic cholecystectomy. removal of cholecystostomy tube Specimen/Specimens Removed: gallbladder Estimated Blood Loss: EBL {In ML}: 50 Blood Products Given: N/A Drains Used: No Drains Post-Op Condition: Good Date of Surgery/Procedure: 01/27/18 Time of Surgery/Procedure: 08:10
[2018-01-27] MEDS ORDERED: Lactated Ringer's 1,000 ML IV SCH (10:00)
[2018-01-27] MEDS ORDERED: Oxycodone/Acetaminophen 2.5/325 mg Tab PO PRN (10:04)
[2018-01-27 11:26] VITALS: TEMP 97
[2018-01-27 12:02] VITALS: O2SAT 95
--- NOTE | 2018-01-27 12:16 | OP ---
PROCEDURE DATE: 01/27/2018 PREOPERATIVE DIAGNOSIS: Chronic cholecystitis. POSTOPERATIVE DIAGNOSIS: Chronic cholecystitis. PROCEDURE: Laparoscopic cholecystectomy and removal of percutaneous cholecystostomy tube. SURGEON: 1. Kong Campos MD. 2. Gaston Weber DO. TYPE OF ANESTHESIA: General anesthesia was used. DESCRIPTION OF PROCEDURE: The patient was brought to the operating room where surgical safety check was performed. Preoperatively 2 g of IV Ancef was administered, general anesthesia was induced. A Sarmiento catheter was inserted. The patient was placed in supine position and the abdomen was prepped and draped in a sterile fashion. A supraumbilical midline incision was made. A Veress needle was used to establish our pneumoperitoneum. Once the intraabdominal pressure was 50 mmHg, the 12 mm trocar was inserted under direct visualization. Subsequently, safe entry into the abdomen was obtained. There were no signs of iatrogenic injury from the 12 mm port. Subsequently, the following ports were inserted under direct visualization along with local anesthetic in a typical fashion. Two 5 mm lateral ports were placed along the right costal margin and one 5 mm port was placed along the subxiphoid region. The peritoneal cavity was inspected after trocar insertion and no abnormalities were found. The patient was placed in reverse Trendelenburg position with the right side up. Afterwards some omental attachments to the gallbladder were gently sucked away, placement of atraumatic grasper was used to attack the fundus of the gallbladder superiorly over the dome of the liver. Filmy adhesions between the gallbladder were also lysed bluntly. The infundibulum was identified, subsequently we tracked it laterally towards the right lower quadrant using another atraumatic grasper. This maneuver exposed Calot triangle fairly well. The peritoneum overlying the gallbladder and infundibulum was incised with blunt dissection anteriorly. Then the posterior peritoneum was dissected. The triangle of Calot was dissected to expose the cystic duct lymph node, the cystic artery, the cystic plate as well as the cystic duct. Once these structures were carefully identified, the cystic duct was divided first. Further dissection of the triangle was completed once it was determined that the only structure remaining entering the gallbladder was the cystic duct. It was doubly clipped and divided. After division of the cystic duct, the cystic artery was doubly clipped and divided as well. Use of the Harmonic was used to separate the peritoneal attachments between the gallbladder and its bed on the liver. The gallbladder fossa and cystic artery were inspected to ensure that there was no bleeding. Hemostasis was achieved with electrocautery. There was no leakage of bile from the cystic duct stump noted. The gallbladder once freed was placed in an endoscopic retrieval bag and it was easily removed from the abdomen through the supraumbilical port. The specimen was sent to pathology. The fascia of the supraumbilical ports were re-approximated with 0-Vicryl and RU6 needle. All incisions were closed using 4-0 Vicryl sutures in an interrupted manner for the 5 mm trocars in a continuous fashion for the supraumbilical incision. The operative field was cleaned and dried and Dermabond was applied along the surgical incision sites. There were no intraoperative complications and estimated blood loss was approximately 50 mL. All instrument and sponge counts were correct. Surgical debriefing was performed and the patient was extubated and transferred to PACU in stable condition. Gaston Weber DO Kong Campos MD
[2018-01-27] MEDS ORDERED: Oxycodone/Acetaminophen 5/325 mg Tab ONE (12:57)
[2018-01-27 13:02] VITALS: BP 106/52; PULSE 60
== END 2018-01-27 13:45 | disposition home or self-care (01) ==
LOC: SDS 06:05
PROVIDERS: ATTEND Surgery
DX: K80.12 Calculus of gallbladder with acute and chronic cholecystitis without obstruction (principal); I25.10 Atherosclerotic heart disease of native coronary artery without angina pectoris; Z91.041 Radiographic dye allergy status
CPT/HCPCS: 36415; 47562; 80076; 88304; J0131; J0690; J1100; J2001; J2250; J2270; J2405; J2704; J2710; J2765; J3010; J7120

== ENCOUNTER 2018-01-28 09:20 | Inpatient (IN) | payer MEDICARE, BC ==
[2018-01-28 09:18] VITALS: BMI 25.0
--- NOTE | 2018-01-28 09:40 | ED PDOC ---
Arrival/HPI - General Chief Complaint: Male Genitourinary Time Seen by Provider: 01/28/18 09:29 Historian: Patient, Family - History of Present Illness Narrative History of Present Illness (Text): 01/28/18 09:36 Patient is a 82 year old male whose past medical history includes septic shock, CAD, hyperlipidemia, and coronary stent placement, who presents to the Emergency department with family members for difficulty urinating. Patient underwent cholecystectomy procedure yesterday, and since the surgery he started having difficulty urinating. Family notes that he produced dark urine. Patient also has a history of paraplegia. Patient denies fevers, chills, cough, shortness of breath, chest pain, dyspnea on exertion, abdominal pain, nausea, vomiting, diarrhea, back pain, neck pain, headache, dizziness, or any other complaint. PMD: Food Tester: Time/Duration: 24 hours Symptom Onset: Sudden Symptom Course: Unchanged Context: Other (since surgery) Past Medical History - Provider Review Nursing Documentation Reviewed: Yes - Cardiac Hx Pacemaker: No - Pulmonary Hx Respiratory Disorders: No - Neurological Hx Paralysis: Yes (PARAPLEGIC) - HEENT Hx HEENT Disorder: No - Renal Hx Renal Disorder: No - Endocrine/Metabolic Hx Endocrine Disorders: No - Hematological/Oncological Hx Blood Transfusions: No Hx Blood Transfusion Reaction: No - Integumentary Hx Dermatological Disorder: No - Musculoskeletal/Rheumatological Hx Musculoskeletal Disorders: Yes (SPINAL CORD INJURY/) - Gastrointestinal Hx Gastrointestinal Disorders: No - Genitourinary/Gynecological Hx Genitourinary Disorders: Yes Hx Urinary Tract Infection: Yes (2/2 urinary retention ) - Psychiatric Hx Emotional Abuse: No Hx Physical Abuse: No Hx Substance Use: No - Surgical History Hx Musculoskeletal Surgery: Yes (spinal column surgery) - Anesthesia Hx Anesthesia Reactions: No Hx Malignant Hyperthermia: No - Suicidal Assessment Feels Threatened In Home Enviroment: No Family/Social History - Physician Review Nursing Documentation Reviewed: Yes Family/Social History: No Known Family HX Smoking Status: Never Smoked Hx Alcohol Use: Yes (OCC WINE) Hx Substance Use: No Allergies/Home Meds Allergies/Adverse Reactions: Allergies diatrizoate sodium [From Hypaque] Allergy (Intermediate, Verified 01/21/18 07:49) ANAPHYLAXIS Home Medications: Home Meds Medication Instructions Recorded Confirmed Aspirin [Ecotrin] 81 mg PO DAILY 01/21/18 01/28/18 Calcium Carbonate [Calcium] 500 mg PO BID 01/21/18 01/28/18 Lactobacillus Rhamnosus GG 1 cap PO BID 01/21/18 01/28/18 [Culturelle] Metoprolol Tartrate [Lopressor] 50 mg PO DAILY 01/21/18 01/28/18 Multivit-Min/FA/Lycopen/Lutein 1 tab PO QAM 01/21/18 01/28/18 [Centrum Silver Tablet] Docusate [Colace] 100 mg PO BID 01/27/18 01/28/18 oxyCODONE/Acetaminophen [Percocet 1 tab PO Q6 PRN 01/27/18 01/28/18 5/325 mg Tab] Review of Systems - Physician Review All systems were reviewed & negative as marked: Yes - Review of Systems Constitutional: absent: Fevers, Night Sweats Respiratory: absent: SOB, Cough Cardiovascular: absent: Chest Pain Gastrointestinal: absent: Abdominal Pain, Diarrhea, Nausea, Vomiting Genitourinary Male: Dysuria, Urinary Output Changes (decreased urination) Musculoskeletal: absent: Back Pain, Neck Pain Neurological: absent: Headache, Dizziness Physical Exam Vital Signs Reviewed: Yes Temperature: Afebrile Blood Pressure: Normal Pulse: Regular Respiratory Rate: Normal Appearance: Positive for: Well-Appearing Mental Status: Positive for: Alert and Oriented X 3 - Systems Exam Head: Present: Atraumatic, Normocephalic Pupils: Present: PERRL Extroacular Muscles: Present: EOMI Conjunctiva: Present: Normal Mouth: Present: Moist Mucous Membranes Neck: Present: Normal Range of Motion Respiratory/Chest: Present: Clear to Auscultation, Good Air Exchange. No: Respiratory Distress, Accessory Muscle Use Cardiovascular: Present: Regular Rate and Rhythm, Normal S1, S2. No: Murmurs Abdomen: Present: Scars (Surgical scar is clean, dry, and intact.). No: Tenderness, Distention, Peritoneal Signs Genitourinary Male: Present: Other (Bladder distention) Back: Present: Normal Inspection Upper Extremity: Present: Normal Inspection. No: Cyanosis, Edema Lower Extremity: Present: Normal Inspection. No: Edema Neurological: Present: GCS=15, CN II-XII Intact, Speech Normal Skin: Present: Warm, Dry, Normal Color. No: Rashes Psychiatric: Present: Alert, Oriented x 3, Normal Insight, Normal Concentration Medical Decision Making ED Course and Treatment: 01/28/18 09:36 Impression: 82 year old male who is complaining of difficulty urinating and producing dark urine, which started yesterday after cholecystectomy procedure. Differential Diagnosis included but are not limited to: Urinary retention post surgical vs. infection. Plan: -- VBG -- Labs -- Blood work -- IV fluids -- Blood and Urine culture. -- Reassess and disposition Prior Visits: Notes and results from previous visits were reviewed. Progress Notes: 01/28/18 Discussed case with who states the surgery was successful with no complications. 01/28/18 10:30 50cc of blood clot came out after Izaguirre Catheter was placed by Fe Campbell, and 700ml serosanguionus urine came out. Patient is much more comfortable. No distended bladder. Blood pressure stable and normal. UA noted to be possible UTI with CBC WBC 15 will tx with IV antibiotics. 01/28/18 10:36 Discussed case with , who requests consult with , and to administer Rocephin IV antibiotics for UTI. Case discussed with Dr. 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 He will f/u with patient. Case discussed with Dr. Garay who will admit to his service. - Lab Interpretations I have reviewed the lab results: Yes - Scribe Statement The provider has reviewed the documentation as recorded by the Scribe Anand Grant Provider Scribe Attestation: All medical record entries made by the Scribe were at my direction and personally dictated by me. I have reviewed the chart and agree that the record accurately reflects my personal performance of the history, physical exam, medical decision making, and the department course for this patient. I have also personally directed, reviewed, and agree with the discharge instructions and disposition. Disposition/Present on Arrival - Present on Arrival Any Indicators Present on Arrival: No History of DVT/PE: No History of Uncontrolled Diabetes: No Urinary Catheter: No History Surgical Site Infection Following: None - Disposition Have Diagnosis and Disposition been Completed?: Yes Diagnosis: Urinary retention, Hematuria, UTI (urinary tract infection) Disposition: HOSPITALIZED Disposition Time: 11:24 Patient Plan: Admission Condition: FAIR
[2018-01-28] MEDS: Sodium Chloride 0.9% 1,000 ML IV SCH (10:25)
[2018-01-28 10:29] LABS: BASO # 0.02 K/mm3 (0.0-2.0); BASO % 0.1 % (0.0-3.0); EOS # 0.2 (0.0-0.7); EOS % 1.1 % (1.5-5.0); GRAN # 13.07 (1.4-6.5); HEMOGLOBIN 10.3 g/dL (14.0-18.0); LYMPH # 1.3 (1.2-3.4); LYMPH % 8.5 % (22.0-35.0); MEAN CELL VOLUME 92.1 fl (80.0-105.0); MEAN CORPUSCULAR HEMOGLOBIN 30.1 pg (25.0-35.0); MEAN CORPUSCULAR HGB CONC 32.7 g/dl (31.0-37.0); MEAN PLATELET VOLUME 10.4 fl (7.0-11.0); MONO # 0.5 (0.1-0.6); MONO % 3.3 % (1.0-6.0); RBC 3.42 10^6/uL (3.5-6.1); RED CELL DISTRIBUTION WIDTH 15.1 % (11.5-14.5)
[2018-01-28 10:30] LABS: VENOUS BLOOD GAS BASE EXCESS -0.8 mmol/L (0.0-2.0); VENOUS BLOOD GAS PO2 52 mm/Hg (30-55); VENOUS BLOOD PH 7.38 (7.32-7.43)
[2018-01-28 10:34] LABS: PH,URINE 6.5 (4.7-8.0); URINE BILIRUBIN SMALL (NEGATIVE); URINE BLOOD LARGE (NEGATIVE); URINE GLUCOSE (UA) NEGATIVE (NEGATIVE); URINE LEUKOCYTE ESTERASE MODERATE Leu/uL (NEGATIVE); URINE PROTEIN >=300 mg/dL (<30 mg/dL); URINE UROBILINOGEN 0.2 E.U./dL (<1 E.U./dL)
[2018-01-28] MEDS ORDERED: cefTRIAXone 1 gm 1 GM/100 ML BAG IVPB STA (10:34)
[2018-01-28 10:36] LABS: URINE APPEARANCE TURBID (CLEAR); URINE COLOR RED (YELLOW)
[2018-01-28 10:39] LABS: ALB/GLOB RATIO 1.1 (1.1-1.8); ALBUMIN 3.4 g/dL (3.0-4.8); ALT/SGPT 33 U/L (7-56); AST/SGOT 35 U/L (17-59); BLOOD UREA NITROGEN 15 mg/dL (7-21); CALCIUM 8.6 mg/dL (8.4-10.5); GFR NON-AFRICAN AMERICAN > 60
[2018-01-28 10:40] LABS: INR 1.21; PARTIAL THROMBOPLASTIN TIME 29.9 Seconds (25.1-36.5); URINE RBC TNTC /hpf (0-2)
--- NOTE | 2018-01-28 11:39 | CP.PCM.CON ---
History of Present Illness - History of Present Illness History of Present Illness: Surgery: Dr. Campos Reason for consult: POD1 s/p lap blanche presenting for post op urinary retention CC: unable to void since OR HPI: Patient is an 82 y/o male w/ pmhx of paraplegia s/p fall 40yrs ago and bladder outlet obstruction s/p laser ablation presents s/p laparoscopic cholecystectomy POD1 for difficulty voiding since OR. Patient daughter at bedside who is primary historian. Daughter states he has voided about 50cc since operation yesterday and the urine was dark and cloudy. He has been tolerating diet and drinking fluids w/o n/v or abdominal pain. Family brought in patient for evaluation due to concern of urinary difficulties. Patient was recently admitted in November 2017 with sepsis 2/2 acute cholecystitis and underwent blanche- tube placement due to critical condition. Patient recovered well and was booked electively for lap blanche on 01/27, surgery uncomplicated. In ER, patient comfortable, NAD. Izaguirre placed by nursing w/ dark, bassem colored urine w/ some blood clots returned. About 700cc total output of urine post placement. UA showed evidence of UTI and chemistry with hyponatremia. PMHx: paraplegia, bladder outlet obstruction PSHx: Prostate laser vaporization, Back surgery, lap blanche SocialHx: denies smoking/EtOH/drugs ALL: Diatrizoate Sodium Review of Systems - Review of Systems All systems: reviewed and no additional remarkable complaints except Review of Systems: unless stated in HPI Past Patient History - Infectious Disease Hx of Infectious Diseases: None - Past Medical History & Family History Past Medical History?: Yes - Past Social History Smoking Status: Never Smoked - CARDIAC Hx Pacemaker: No - PULMONARY Hx Respiratory Disorders: No - NEUROLOGICAL Hx Paralysis: Yes (PARAPLEGIC) - HEENT Hx HEENT Problems: No - RENAL Hx Chronic Kidney Disease: No - ENDOCRINE/METABOLIC Hx Endocrine Disorders: No - HEMATOLOGICAL/ONCOLOGICAL Hx Blood Transfusions: No Hx Blood Transfusion Reaction: No - INTEGUMENTARY Hx Dermatological Problems: No - MUSCULOSKELETAL/RHEUMATOLOGICAL Hx Musculoskeletal Disorders: Yes (SPINAL CORD INJURY/) - GASTROINTESTINAL Hx Gastrointestinal Disorders: No - GENITOURINARY/GYNECOLOGICAL Hx Genitourinary Disorders: Yes Hx Urinary Tract Infection: Yes (2/2 urinary retention ) - PSYCHIATRIC Hx Emotional Abuse: No Hx Physical Abuse: No Hx Substance Use: No - SURGICAL HISTORY Hx Musculoskeletal Surgery: Yes (spinal column surgery) - ANESTHESIA Hx Anesthesia Reactions: No Hx Malignant Hyperthermia: No Meds Allergies/Adverse Reactions: Allergies Allergy/AdvReac Type Severity Reaction Status Date / Time diatrizoate sodium Allergy Intermediate ANAPHYLAXIS Verified 01/21/18 07:49 [From Hypaque] - Medications Medications: Current Medications Sodium Chloride (Sodium Chloride 0.9%) 1,000 mls @ 100 mls/hr IV .Q10H NEETA Last Admin: 01/28/18 10:25 Dose: 100 mls/hr Physical Exam - Constitutional Appears: Non-toxic, No Acute Distress - Head Exam Head Exam: ATRAUMATIC, NORMOCEPHALIC - Eye Exam Eye Exam: EOMI, Normal appearance - ENT Exam ENT Exam: Mucous Membranes Moist - Respiratory Exam Respiratory Exam: NORMAL BREATHING PATTERN. absent: Respiratory Distress - Cardiovascular Exam Cardiovascular Exam: REGULAR RHYTHM. absent: Tachycardia - GI/Abdominal Exam GI & Abdominal Exam: Soft. absent: Distended, Tenderness - Neurological Exam Neurological exam: Alert, Oriented x3 - Psychiatric Exam Psychiatric exam: Normal Affect, Normal Mood Results - Vital Signs Recent Vital Signs: Last Vital Signs Temp 98.6 F 01/28/18 09:18 Pulse 74 01/28/18 09:18 Resp 18 01/28/18 09:18 BP 101/52 L 01/28/18 09:18 Pulse Ox 96 01/28/18 09:18 - Labs Result Diagrams: 01/28/18 10:00 01/28/18 10:00 Labs: Laboratory Results - last 24 hr 01/28/18 01/28/18 01/28/18 10:00 10:00 10:00 WBC 15.0 H D RBC 3.42 L Hgb 10.3 L Hct 31.5 L MCV 92.1 MCH 30.1 MCHC 32.7 RDW 15.1 H Plt Count 169 MPV 10.4 Gran % 87.0 H Lymph % (Auto) 8.5 L [place] % (Auto) 3.3 Eos % (Auto) 1.1 L Baso % (Auto) 0.1 Gran # 13.07 H Lymph # (Auto) 1.3 [place] # (Auto) 0.5 Eos # (Auto) 0.2 Baso # (Auto) 0.02 PT 14.0 H INR 1.21 APTT 29.9 pO2 VBG pH VBG pCO2 VBG HCO3 VBG Total CO2 VBG O2 Sat (Calc) VBG Base Excess VBG Potassium Sodium Chloride Glucose Lactate FiO2 Potassium Carbon Dioxide Anion Gap BUN Creatinine Est GFR ( Amer) Est GFR (Non-Af Amer) Random Glucose Calcium Phosphorus Magnesium Total Bilirubin AST ALT Alkaline Phosphatase Total Protein Albumin Globulin Albumin/Globulin Ratio Venous Blood Potassium Urine Color Red Urine Appearance Turbid Urine pH 6.5 Ur Specific [place] 1.015 Urine Protein >=300 H Urine Glucose (UA) Negative Urine Ketones Negative Urine Blood Large H Urine Nitrate Positive H Urine Bilirubin Small H Urine Urobilinogen 0.2 Ur Leukocyte Esterase Moderate H Urine RBC Tntc Urine WBC 5 - 10 01/28/18 01/28/18 10:00 10:00 WBC RBC Hgb Hct MCV MCH MCHC RDW Plt Count MPV Gran % Lymph % (Auto) [place] % (Auto) Eos % (Auto) Baso % (Auto) Gran # Lymph # (Auto) [place] # (Auto) Eos # (Auto) Baso # (Auto) PT INR APTT pO2 52 VBG pH 7.38 VBG pCO2 41.0 VBG HCO3 24.3 VBG Total CO2 25.6 VBG O2 Sat (Calc) 89.7 H VBG Base Excess -0.8 L VBG Potassium 5.0 Sodium 127.0 L 129 L Chloride 99.0 97 L Glucose 126 H Lactate 2.5 H FiO2 21.0 Potassium 4.2 Carbon Dioxide 23 Anion Gap 14 BUN 15 Creatinine 0.8 Est GFR ( Amer) > 60 Est GFR (Non-Af Amer) > 60 Random Glucose 126 H Calcium 8.6 Phosphorus 3.2 Magnesium 1.9 Total Bilirubin 1.5 H AST 35 ALT 33 Alkaline Phosphatase 78 Total Protein 6.5 Albumin 3.4 Globulin 3.1 Albumin/Globulin Ratio 1.1 Venous Blood Potassium 5.0 Urine Color Urine Appearance Urine pH Ur Specific [place] Urine Protein Urine Glucose (UA) Urine Ketones Urine Blood Urine Nitrate Urine Bilirubin Urine Urobilinogen Ur Leukocyte Esterase Urine RBC Urine WBC Assessment & Plan - Assessment and Plan (Free Text) Assessment: 82 y/o male s/p lap blanche POD1 presenting w/ urinary retention found to have UTI and hyponatremia Plan: -admit to medical attending -IV abx -urology, Dr. Turner notified, f/u recs -keep izaguirre in place -ok for reg diet -am labs -will follow -d/w Dr. Andres Salmeron PGY4 - Date & Time Date: 01/28/18 Time: 11:52
[2018-01-28 15:00] LABS: VENOUS BLOOD GAS BASE EXCESS -0.7 mmol/L (0.0-2.0); VENOUS BLOOD GAS PO2 49 mm/Hg (30-55); VENOUS BLOOD PH 7.39 (7.32-7.43)
[2018-01-28] MEDS: Oxycodone/Acetaminophen 5/325 mg Tab PO PRN (17:59)
[2018-01-28] MEDS ORDERED: Influenza Vaccine 60 mcg/0.5 mL SYR (4YR UP) IM ONE (21:35)
[2018-01-28] MEDS ORDERED: Pneumococcal 23-Valent Vaccine IM ONE (21:35)
[2018-01-29] MEDS: Sodium Chloride 0.9% 1,000 ML IV SCH (00:47)
[2018-01-29 01:31] VITALS: RESP 20
[2018-01-29] MEDS: Oxycodone/Acetaminophen 5/325 mg Tab PO PRN (04:24)
--- NOTE | 2018-01-29 06:31 | CP.PCM.HP ---
<Kristie Sexton - Last Filed: 01/29/18 13:45> History of Present Illness - History of Present Illness History of Present Illness: H&P for Luz Manzano PGY3 This is an 82yo male with past medical history of HTN, CAD s/p stent, paraplegia s/p fall, bladder outlet obstruction who came to ED for urinary retention. Patient had an elective laproscopic cholecystectomy POD#1 and was discharged home. In November this yr, patient had sepsis secondary to cholecystitis and had blanche-tube placed. Since he went home he had difficulty urinating. Patient only urinated a small amount after surgery. He was passing gas and pain was controlled. He has been tolerating diet at home as well. Patient denies chest pain, shortness of breath, abdominal pain, nausea/vomiting/diarrhea, fever/chill s, numbness/tingling. Past medical history: HTN, CAD s/p stent, paraplegia s/p fall, bladder outlet obstruction Past surgical history: back surgery, prostate laser vaporization, cholecystectomy Home meds: Reviewed as per MAR Allergies: Diatriozate Social history: Denies EtOH, drug or tobacco use. Lives with Family history: Mom- heart problems, Dad- from old age Present on Admission - Present on Admission Any Indicators Present on Admission: No Review of Systems - Review of Systems All systems: reviewed and no additional remarkable complaints except Review of Systems: 12 point ROS reviewed as per HPI and is otherwise negative Past Patient History - Infectious Disease Hx of Infectious Diseases: None - Past Medical History & Family History Past Medical History?: Yes - Past Social History Smoking Status: Never Smoked - CARDIAC Hx Cardiac Disorders: Yes (cad) Hx Hypercholesterolemia: Yes Hx Hypertension: Yes Hx Pacemaker: No Hx Peripheral Edema: Yes (ble +1) - PULMONARY Hx Respiratory Disorders: No - NEUROLOGICAL Hx Neurological Disorder: Yes Other/Comment: 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 uses b/l leg braces ad crutches and is able to walk - HEENT Hx HEENT Problems: No - RENAL Hx Chronic Kidney Disease: No - ENDOCRINE/METABOLIC Hx Endocrine Disorders: No - HEMATOLOGICAL/ONCOLOGICAL Hx Blood Disorders: Yes Other/Comment: septic shock fever 12/06/17 due to cholecystitis was in icu - INTEGUMENTARY Hx Dermatological Problems: Yes Other/Comment: 1/2 of right great toe gone, dry toenails, ruq abd bandaid and 5 small stab wounds covered with dermabond intact from cholelap done yesterday sds 01/27/18, old surgical scar to back - MUSCULOSKELETAL/RHEUMATOLOGICAL Hx Musculoskeletal Disorders: Yes (SPINAL CORD INJURY/) Hx Falls: Yes (work related 43 yrs ago) Hx Unsteady Gait: Yes Other/Comment: 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 down uses leg braces and crutches to walk, pt drives and retired from work after 43 years ,4 years ago - GASTROINTESTINAL Hx Gastrointestinal Disorders: Yes Hx Gall Bladder Disease: Yes (chronic cholecystitis) - GENITOURINARY/GYNECOLOGICAL Hx Genitourinary Disorders: Yes Hx Urinary Tract Infection: Yes (urinary retention) - PSYCHIATRIC Hx Psychophysiologic Disorder: No Hx Emotional Abuse: No Hx Physical Abuse: No Hx Substance Use: No - SURGICAL HISTORY Hx Surgeries: Yes Hx Cholecystectomy: Yes (01/27/18) Hx Coronary Stent: Yes (2012) Hx Musculoskeletal Surgery: Yes (spinal column surgery) Other/Comment: ultrasound guided percutaneous cholecystostomy tube 12/07/17, picc sukhi 11/2017, turp 02/2017, lap blanche yesterday 01/27/18 - ANESTHESIA Hx Anesthesia Reactions: No Hx Malignant Hyperthermia: No Meds Home Medications: Home Medication List Medication Instructions Recorded Confirmed Type Tamsulosin [Flomax] 0.4 mg PO DAILY #30 cap 01/29/18 Rx Allergies/Adverse Reactions: Allergies Allergy/AdvReac Type Severity Reaction Status Date / Time diatrizoate sodium Allergy Intermediate ANAPHYLAXIS Verified 01/21/18 07:49 [From Hypaque] Physical Exam - Constitutional Appears: No Acute Distress - Head Exam Head Exam: ATRAUMATIC, NORMAL INSPECTION, NORMOCEPHALIC - Eye Exam Eye Exam: Normal appearance, PERRL Pupil Exam: NORMAL ACCOMODATION, PERRL - ENT Exam ENT Exam: Mucous Membranes Moist - Respiratory Exam Respiratory Exam: Clear to Auscultation Bilateral, NORMAL BREATHING PATTERN. absent: Rales, Rhonchi, Wheezes - Cardiovascular Exam Cardiovascular Exam: REGULAR RHYTHM, +S1, +S2. absent: Gallop, Rubs, Systolic Murmur - GI/Abdominal Exam GI & Abdominal Exam: Normal Bowel Sounds, Soft, Tenderness (mild tenderness on surgical site ). absent: Mass, Rebound, Rigid Additional comments: surgical site clean and dry - Extremities Exam Extremities exam: Positive for: normal inspection. Negative for: calf tenderness, pedal edema Additional comments: paraplegia - Neurological Exam Neurological exam: Alert, Oriented x3 - Psychiatric Exam Psychiatric exam: Normal Affect, Normal Mood - Skin Skin Exam: Dry, Intact, Warm Results - Vital Signs Recent Vital Signs: Last Vital Signs Temp 100.0 F H 01/29/18 00:00 Pulse 85 01/29/18 00:00 Resp 20 01/29/18 00:00 BP 101/56 L 01/29/18 00:00 Pulse Ox 96 01/29/18 00:00 - Labs Result Diagrams: 01/28/18 10:00 01/28/18 10:00 Labs: Laboratory Results - last 24 hr 01/28/18 01/28/18 01/28/18 10:00 10:00 10:00 WBC 15.0 H D RBC 3.42 L Hgb 10.3 L Hct 31.5 L MCV 92.1 MCH 30.1 MCHC 32.7 RDW 15.1 H Plt Count 169 MPV 10.4 Gran % 87.0 H Lymph % (Auto) 8.5 L [place] % (Auto) 3.3 Eos % (Auto) 1.1 L Baso % (Auto) 0.1 Gran # 13.07 H Lymph # (Auto) 1.3 [place] # (Auto) 0.5 Eos # (Auto) 0.2 Baso # (Auto) 0.02 PT 14.0 H INR 1.21 APTT 29.9 pO2 VBG pH VBG pCO2 VBG HCO3 VBG Total CO2 VBG O2 Sat (Calc) VBG Base Excess VBG Potassium Sodium Chloride Glucose Lactate FiO2 Potassium Carbon Dioxide Anion Gap BUN Creatinine Est GFR ( Amer) Est GFR (Non-Af Amer) Random Glucose Calcium Phosphorus Magnesium Total Bilirubin AST ALT Alkaline Phosphatase Total Protein Albumin Globulin Albumin/Globulin Ratio Procalcitonin 3.23 H Venous Blood Potassium Urine Color Urine Appearance Urine pH Ur Specific [place] Urine Protein Urine Glucose (UA) Urine Ketones Urine Blood Urine Nitrate Urine Bilirubin Urine Urobilinogen Ur Leukocyte Esterase Urine RBC Urine WBC 01/28/18 01/28/18 01/28/18 10:00 10:00 10:00 WBC RBC Hgb Hct MCV MCH MCHC RDW Plt Count MPV Gran % Lymph % (Auto) [place] % (Auto) Eos % (Auto) Baso % (Auto) Gran # Lymph # (Auto) [place] # (Auto) Eos # (Auto) Baso # (Auto) PT INR APTT pO2 52 VBG pH 7.38 VBG pCO2 41.0 VBG HCO3 24.3 VBG Total CO2 25.6 VBG O2 Sat (Calc) 89.7 H VBG Base Excess -0.8 L VBG Potassium 5.0 Sodium 127.0 L 129 L Chloride 99.0 97 L Glucose 126 H Lactate 2.5 H FiO2 21.0 Potassium 4.2 Carbon Dioxide 23 Anion Gap 14 BUN 15 Creatinine 0.8 Est GFR ( Amer) > 60 Est GFR (Non-Af Amer) > 60 Random Glucose 126 H Calcium 8.6 Phosphorus 3.2 Magnesium 1.9 Total Bilirubin 1.5 H AST 35 ALT 33 Alkaline Phosphatase 78 Total Protein 6.5 Albumin 3.4 Globulin 3.1 Albumin/Globulin Ratio 1.1 Procalcitonin Venous Blood Potassium 5.0 Urine Color Red Urine Appearance Turbid Urine pH 6.5 Ur Specific [place] 1.015 Urine Protein >=300 H Urine Glucose (UA) Negative Urine Ketones Negative Urine Blood Large H Urine Nitrate Positive H Urine Bilirubin Small H Urine Urobilinogen 0.2 Ur Leukocyte Esterase Moderate H Urine RBC Tntc Urine WBC 5 - 10 01/28/18 14:50 WBC RBC Hgb Hct MCV MCH MCHC RDW Plt Count MPV Gran % Lymph % (Auto) [place] % (Auto) Eos % (Auto) Baso % (Auto) Gran # Lymph # (Auto) [place] # (Auto) Eos # (Auto) Baso # (Auto) PT INR APTT pO2 49 VBG pH 7.39 VBG pCO2 40.0 VBG HCO3 24.2 VBG Total CO2 25.4 VBG O2 Sat (Calc) 84.6 H VBG Base Excess -0.7 L VBG Potassium 4.2 Sodium 132.0 Chloride 103.0 Glucose 140 H Lactate 1.8 FiO2 21.0 Potassium Carbon Dioxide Anion Gap BUN Creatinine Est GFR ( Amer) Est GFR (Non-Af Amer) Random Glucose Calcium Phosphorus Magnesium Total Bilirubin AST ALT Alkaline Phosphatase Total Protein Albumin Globulin Albumin/Globulin Ratio Procalcitonin Venous Blood Potassium 4.2 Urine Color Urine Appearance Urine pH Ur Specific [place] Urine Protein Urine Glucose (UA) Urine Ketones Urine Blood Urine Nitrate Urine Bilirubin Urine Urobilinogen Ur Leukocyte Esterase Urine RBC Urine WBC Assessment & Plan - Assessment and Plan (Free Text) Assessment: 1. Urinary retention - can be secondary to surgery - did have hx of bladder outlet obstruction s/p prostate laser surgery in past 2. UTI - UA positive for leuk esterase - can be falsey positive since urine was very concentrated 3. Lap blanche POD #2 4. Paraplegia 5. CAD s/p PCI Plan: Labs and imaging reviewed. Patient had izaguirre placed and 700cc of urine was drained. Output was monitored. Patient was evaluated by surgery. Patient is stable. Pain is controlled and is tolerating diet. Patient will be discharged home with izaguirre with leg bag. He will continue his home medications. He will follow up with urology and surgery as outpatient. Patient and both verbalized and agreed with discharge plan. Case seen, discussed and reviewed with Dr. Garay. Luz Sexton PGY3 - Date & Time Date: 01/29/18 Time: 14:04 <Wilmer Garay S - Last Filed: 01/29/18 21:16> Results - Vital Signs Recent Vital Signs: Last Vital Signs Temp 98.5 F 01/29/18 08:51 Pulse 71 01/29/18 08:51 Resp 20 01/29/18 08:51 BP 100/52 L 01/29/18 08:51 Pulse Ox 97 01/29/18 08:51 - Labs Result Diagrams: 01/28/18 10:00 01/28/18 10:00 Assessment & Plan - Assessment and Plan (Free Text) Plan: Pt seen and examined by me. I have reviewed the note by the medical laboratory technical officer. The case was discussed and reviewed with the resident. I reviewed the medications and labs. Pt with urinary retention and was placed with a izaguirre. Pt had significant urine that was coming out. He will be placed on Flomax and given a leg bag. He will be discharged home and f/u with Dr Turner as out-pt. He recently had cholecystectomy. Pain is controlled from the surgery.
[2018-01-29 08:52] VITALS: BP 100/52; PULSE 71; TEMP 98.5; O2SAT 97
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
== END 2018-01-29 12:08 | disposition home or self-care (01) | DRG 696 ==
LOC: ED 09:20 → ERH 11:24 → 3RSO 13:37
PROVIDERS: ADMIT Internal Medicine Nephrology; ATTEND Internal Medicine Nephrology
DX: R33.9 Retention of urine, unspecified (principal); N39.0 Urinary tract infection, site not specified; E87.1 Hypo-osmolality and hyponatremia; G82.20 Paraplegia, unspecified; E78.00 Pure hypercholesterolemia, unspecified; E78.5 Hyperlipidemia, unspecified; I10 Essential (primary) hypertension; I25.10 Atherosclerotic heart disease of native coronary artery without angina pectoris; Z79.82 Long term (current) use of aspirin; Z87.440 Personal history of urinary (tract) infections; Z90.49 Acquired absence of other specified parts of digestive tract; Z95.5 Presence of coronary angioplasty implant and graft; Z86.19 Personal history of other infectious and parasitic diseases; Z91.81 History of falling; Z88.8 Allergy status to other drugs, medicaments and biological substances; Z87.892 Personal history of anaphylaxis

== ENCOUNTER 2018-02-08 02:02 | Inpatient (IN) | payer MEDICARE, BC ==
[2018-02-08] MEDS ORDERED: Sodium Chloride 0.9% 1,000 ML IV STA ×2 (02:34→02:55)
[2018-02-08] MEDS ORDERED: Cefepime IV 2 gm in NS 2 GM/100 ML BAG IVPB STA (02:35)
[2018-02-08] MEDS ORDERED: Vancomycin 500 mg Inj IVPB STA (02:36)
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
[2018-02-08 02:47] LABS: BASO # 0.04 K/mm3 (0.0-2.0); BASO % 0.1 % (0.0-3.0); EOS % 0.1 % (1.5-5.0); GRAN # 25.74 (1.4-6.5); GRAN % 92.2 % (50.0-68.0); HEMOGLOBIN 10.6 g/dL (14.0-18.0); LYMPH # 1.2 (1.2-3.4); LYMPH % 4.4 % (22.0-35.0); MEAN CORPUSCULAR HEMOGLOBIN 30.2 pg (25.0-35.0); MEAN CORPUSCULAR HGB CONC 33.5 g/dl (31.0-37.0); MEAN PLATELET VOLUME 10.3 fl (7.0-11.0); MONO # 0.9 (0.1-0.6); MONO % 3.2 % (1.0-6.0); PLATELET COUNT 375 10^3/uL (120.0-450.0); RBC 3.51 10^6/uL (3.5-6.1); RED CELL DISTRIBUTION WIDTH 14.8 % (11.5-14.5)
[2018-02-08 02:50] LABS: VENOUS BLOOD GAS BASE EXCESS 3.4 mmol/L (0.0-2.0); VENOUS BLOOD GAS PO2 37 mm/Hg (30-55); VENOUS BLOOD PH 7.48 (7.32-7.43)
[2018-02-08 02:55] LABS: WHITE BLOOD COUNT 27.9 10^3/ul (4.5-11.0)
[2018-02-08] MEDS ORDERED: Vancomycin 1.25 GM in Sodium Chloride 0.9% 500 ML IVPB ONE (03:00)
[2018-02-08 03:28] LABS: ALB/GLOB RATIO 0.9 (1.1-1.8); ALBUMIN 3.2 g/dL (3.0-4.8); ALT/SGPT 30 U/L (7-56); AST/SGOT 42 U/L (17-59); BLOOD UREA NITROGEN 20 mg/dL (7-21); CALCIUM 8.6 mg/dL (8.4-10.5); GFR NON-AFRICAN AMERICAN > 60
[2018-02-08 03:51] LABS: BAND 4 % (0-2); BASOPHIL 1 % (0.0-1.0); LYMPHOCYTE 7 % (22.0-35.0); MONOCYTE 3 % (1.0-6.0); NEUTROPHIL 85 % (50.0-70.0); PLATELET ESTIMATE NORMAL (NORMAL)
[2018-02-08] MEDS ORDERED: Iohexol 350 MG/100 ML VIAL ONE (04:01)
[2018-02-08] MEDS ORDERED: NOREPINEPHRINE BIT/0.9 % NACL 4 MG/250 ML BAG IV PRN (05:00)
--- NOTE | 2018-02-08 05:43 | PCM.SEPTIC ---
Sepsis Progress Note - Reassessment Type Date of Evaluation: 02/08/18 Time of Evaluation: 05:30 Reassessment Type: Non-invasive reassessment - Non Invasive Reassessment Were the most recent vital sign reviewed: Yes Vital Sign (Latest): Temp Pulse Resp BP Pulse Ox 103.3 F H 82 19 89/49 L 95 02/08/18 02:16 02/08/18 05:20 02/08/18 05:20 02/08/18 05:20 02/08/18 05:20 Patient's BP on low side despite 3-4L fluid boluses as per ED physician. Patient getting a central line placement currently. On Levophed at 4 mcg/min peripherally currently. Cardiovascular: Yes: Regular Rate, Rhythm. No: Chest Non Tender Respiratory: Yes: Normal Breath Sounds. No: Accessory Muscle Use, Respiratory Distress Capillary Refill: Normal (Less than 2 sec) Pulses: Normal Radial, Normal Dorsalis Pedis, Normal Posterior Tibialis Skin: Normal Color, Warm, Dry
[2018-02-08 05:50] LABS: INR 1.24; PROTHROMBIN TIME 14.3 SECONDS (9.4-12.5)
[2018-02-08] MEDS ORDERED: Potassium Phosphate 3 mmol/ml Inj IV STA (05:52)
[2018-02-08] MEDS ORDERED: Potassium Phosphate 15 MMOLE in Sodium Chloride 0.9% 250 ML IVPB ONE (06:00)
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
[2018-02-08 06:04] LABS: VENOUS BLOOD GAS BASE EXCESS -5.4 mmol/L (0.0-2.0); VENOUS BLOOD GAS PO2 100 mm/Hg (30-55); VENOUS BLOOD PH 7.33 (7.32-7.43)
--- NOTE | 2018-02-08 06:07 | PCM.PROC ---
Procedures Attestation:: I certify that I have explained the specified Operation(s) or Procedure(s), risks, benefits and reasonable alternatives to the Patient and/or other person responsible. The opportunity was given to ask questions and all questions answered - Central Line Placement Right Internal Jugular Triple Lumen Catheter Aseptic technique was employed throughout the procedure: Hand Hygiene done prior to procedure, Full sterile barriers (mask, hair cover, sterile gown, sterile gloves), Full body sterile drape, Chloraprep Antiseptic: 30 second prep for IJ or SC sites CVP Time Out Performed: Yes Pt. Placed on Pulse Ox Monitor: Yes Central Line Prep: Chlorhexidine-Alcohol Combination Local Anesthesia Used: Lidocaine 1% Amount of Anesthesia Used (mls): 3 Ultrasound Used for Placement: Yes Central Line Lumen Inserted: triple Central Line Length: 16 cm Post Procedure: Sutured in Place, Good Blood Return, All Ports Aspirated, Flushed, Capped, Sterile Dressing Applied Secured by: Securement device Post procedure dressing: Clear vapor permeable, Chlorhexidine disc (Biopatch) Post Procedure X-Ray: Yes Patient Tolerated Procedure: Well Immediate Complications: None
[2018-02-08 06:40] LABS: URINE BILIRUBIN NEGATIVE (NEGATIVE); URINE BLOOD MODERATE (NEGATIVE); URINE GLUCOSE (UA) NEGATIVE (NEGATIVE); URINE LEUKOCYTE ESTERASE LARGE Leu/uL (NEGATIVE); URINE PROTEIN TRACE mg/dL (<30 mg/dL); URINE UROBILINOGEN 0.2 E.U./dL (<1 E.U./dL)
[2018-02-08] MEDS ORDERED: POLYETHYLENE GLYCOL 3350 17 GM/Dose PACKET PO STA (06:40)
[2018-02-08 06:43] LABS: URINE APPEARANCE CLOUDY (CLEAR); URINE COLOR YELLOW (YELLOW)
[2018-02-08] MEDS: Meropenem IV 1 gm in NS 1 GM/50 ML BAG IVPB SCH ×3 (06:44→21:06)
[2018-02-08 06:45] LABS: URINE BACTERIA MOD (NEG); URINE EPITHELIAL CELLS 0 - 2 /hpf (0-5); URINE WBC TNTC /hpf (0-6)
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
[2018-02-08] MEDS: Vancomycin 1gm in NS 250ml 1 GM/250 ML BAG IVPB SCH ×2 (08:27→19:51)
[2018-02-08 08:29] LABS: BASO # 0.02 K/mm3 (0.0-2.0); BASO % 0.1 % (0.0-3.0); GRAN # 27.09 (1.4-6.5); GRAN % 90.7 % (50.0-68.0); LYMPH # 1.3 (1.2-3.4); LYMPH % 4.4 % (22.0-35.0); MEAN CELL VOLUME 90.6 fl (80.0-105.0); MEAN CORPUSCULAR HEMOGLOBIN 29.3 pg (25.0-35.0); MEAN CORPUSCULAR HGB CONC 32.4 g/dl (31.0-37.0); MEAN PLATELET VOLUME 9.8 fl (7.0-11.0); MONO # 1.4 (0.1-0.6); MONO % 4.8 % (1.0-6.0); RBC 3.07 10^6/uL (3.5-6.1); RED CELL DISTRIBUTION WIDTH 14.9 % (11.5-14.5)
[2018-02-08 08:31] LABS: WHITE BLOOD COUNT 29.9 10^3/ul (4.5-11.0)
--- NOTE | 2018-02-08 08:37 | RAD ---
Date of service: 02/08/2018 HISTORY: TLC placement COMPARISON: 02/08/2018. FINDINGS: The right IJV line terminates at the cavoatrial junction LUNGS: The lungs are well inflated. There is interstitial thickening and chronic changes in the lungs. No focal consolidation. PLEURA: No significant pleural effusion identified, no pneumothorax apparent. CARDIOVASCULAR: The heart is normal in size. Atherosclerotic aortic arch calcifications are present. OSSEOUS STRUCTURES: Posterior spinal fixation in the thoracolumbar spine with 2 metallic rods. VISUALIZED UPPER ABDOMEN: Normal. OTHER FINDINGS: None. IMPRESSION: Right IJV line terminates at the cavoatrial junction. No pneumothorax. No acute findings.
[2018-02-08 08:41] LABS: ALB/GLOB RATIO 0.8 (1.1-1.8); ALBUMIN 2.4 g/dL (3.0-4.8); ALT/SGPT 49 U/L (7-56); AST/SGOT 53 U/L (17-59); BLOOD UREA NITROGEN 16 mg/dL (7-21); CALCIUM 7.4 mg/dL (8.4-10.5); GFR NON-AFRICAN AMERICAN > 60
--- NOTE | 2018-02-08 08:52 | RAD ---
Date of service: 02/08/2018 HISTORY: chest pain COMPARISON: 12/31/2017. FINDINGS: LUNGS: The lungs are well inflated and clear. PLEURA: No significant pleural effusion identified, no pneumothorax apparent. CARDIOVASCULAR: The heart is normal in size. Atherosclerotic aortic arch calcifications are present. OSSEOUS STRUCTURES: Stable. VISUALIZED UPPER ABDOMEN: Normal. OTHER FINDINGS: None. IMPRESSION: No acute findings.
--- NOTE | 2018-02-08 09:11 | CARD ---
APPROVED REPORT Date of service: 02/08/2018 EKG Measurement Heart [id number] <Conclusion> Sinus tachycardia Right bundle branch block Left anterior fascicular block Bifascicular block Minimal voltage criteria for LVH, may be normal variant Abnormal ECG
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
[2018-02-08] MEDS: Enoxaparin 40 mg Syringe SC SCH (09:53)
[2018-02-08] MEDS: POLYETHYLENE GLYCOL 3350 17 GM/Dose PACKET PO SCH (09:53)
--- NOTE | 2018-02-08 10:49 | CT ---
Date of service: 02/08/2018 PROCEDURE: CT Abdomen and Pelvis with contrast HISTORY: s/p choly, sepsis COMPARISON: 12/06/2017 CT TECHNIQUE: Contrast dose: 100 cc of Omni 350 Radiation dose: Total exam DLP = 500 mGy-cm. This CT exam was performed using one or more of the following dose reduction techniques: Automated exposure control, adjustment of the mA and/or kV according to patient size, and/or use of iterative reconstruction technique. FINDINGS: LOWER THORAX: Unremarkable. LIVER: Unremarkable. No gross lesion or ductal dilatation. GALLBLADDER AND BILE DUCTS: There is a small fluid collection in the gallbladder fossa the contains a small amount of air consistent with a postoperative seroma or abscess. This measures 28 x 44 mm. PANCREAS: Unremarkable. No gross lesion or ductal dilatation. SPLEEN: Unremarkable. ADRENALS: Unremarkable. No mass. KIDNEYS AND URETERS: Unremarkable. No hydronephrosis. No solid mass. VASCULATURE: Unremarkable. No aortic aneurysm. BOWEL: Unremarkable. No obstruction. No gross mural thickening. APPENDIX: Normal appendix. PERITONEUM: Unremarkable. No free fluid. No free air. LYMPH NODES: Unremarkable. No enlarged lymph nodes. BLADDER: Mural thickening in the bladder. No focal mass. Findings are most likely due to chronic outlet obstruction. Cystitis is also possible REPRODUCTIVE: Enlarged nodular prostate measuring 50 x 63 mm BONES: No acute fracture. OTHER FINDINGS: The report concurs with the preliminary [facility] report IMPRESSION: There is a small fluid collection in the gallbladder fossa the contains a small amount of air consistent with a postoperative seroma or abscess. This measures 28 x 44 mm. Mural thickening in the bladder. No focal mass. Findings are most likely due to chronic outlet obstruction. Cystitis is also possible
[2018-02-08 11:18] VITALS: BMI 23.6
[2018-02-08] MEDS ORDERED: Influenza Vaccine 60 mcg/0.5 mL SYR (4YR UP) IM ONE (11:18)
[2018-02-08] MEDS ORDERED: Pneumococcal 23-Valent Vaccine IM ONE (11:18)
[2018-02-08] MEDS ORDERED: Lactated Ringer's 1,000 ML IV SCH (15:00)
--- NOTE | 2018-02-08 15:49 | NM ---
Date of service: 02/08/2018 PROCEDURE: Nuclear Medicine Hepatobiliary Scan HISTORY: r/o biliary obstruction COMPARISON: None available. TECHNIQUE: 6.2 mCi of technetium 99m Mebrofenin was administered intravenously. Planar images of the abdomen were obtained at 5 min intervals to 60 mins. Delayed images were also obtained. FINDINGS: LIVER: Timely and homogenous uptake. COMMON BILE DUCT: identified at 13 mins. GALLBLADDER: Removed SMALL BOWEL: The duodenum is visualized beginning at 20 min. There is reflux into the stomach minutes 50 through 60. The radionuclide can be seen in the proximal small bowel on the same images. IMPRESSION: No evidence of biliary leak or biliary obstruction
[2018-02-08] MEDS: Lactated Ringer's 1,000 ML IV SCH (16:19)
--- NOTE | 2018-02-08 18:34 | CARD ---
APPROVED REPORT Date of service: 02/08/2018 EKG Measurement Heart [id number] <Conclusion> Marked sinus bradycardia Right bundle branch block Left anterior fascicular block Bifascicular block Abnormal ECG
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
--- NOTE | 2018-02-08 23:07 | PN ---
DATE: 02/08/2018 Previous events noted. The patient is known to me. He has a history of urinary retention from neurogenic bladder plus bladder outlet obstruction. The patient underwent a prostate laser vaporization last year. He had other sequelae of bladder outlet obstruction consisting of hydronephrosis and renal insufficiency. This resolved with prostate laser vaporization. On followup exams, the patient had been emptying much better. He had no further incontinence which appeared to have been overflow. He voids spontaneously and with Crede. The patient had recent gallbladder surgery. He was unable to void after the surgery. She was sent home with a Sarmiento catheter in place. He returned now with apparent sepsis, hypotensive, and unresponsive. He was resuscitated and has been receiving fluids and blood pressure support. Sarmiento catheter has been in place. CT scan showed a thickened bladder, but there was no evidence of hydronephrosis or pyelonephritis. There was a small collection in the gallbladder bed, which is likely a seroma. Nuclear scan showed no biliary obstruction or leak. Urologically, the plan for now is to maintain the indwelling Sarmiento catheter. The patient will receive IV antibiotics and treatment of sepsis. His urinalysis does appear to be a likely source of infection given the positive nitrites, large amount of wbc's, and trace blood. We will await the results of his cultures and continue fluids and supportive care. General Surgery input appreciated. Regarding the small collection, possibly, this may need percutaneous drainage if the patient does not continue to respond to conservative treatment with fluids and antibiotics. He does have an elevated alkaline phosphatase level, however, that is likely normal as he had recent cholecystectomy. I will continue to follow the patient with you. Tavon Turner MD
[2018-02-09] MEDS: Meropenem IV 1 gm in NS 1 GM/50 ML BAG IVPB SCH ×3 (06:00→21:10)
[2018-02-09] MEDS: Lactated Ringer's 1,000 ML IV SCH (06:01)
[2018-02-09 06:08] LABS: BASO # 0.02 K/mm3 (0.0-2.0); BASO % 0.1 % (0.0-3.0); GRAN # 19.33 (1.4-6.5); GRAN % 88.1 % (50.0-68.0); HEMOGLOBIN 8.5 g/dL (14.0-18.0); LYMPH # 1.4 (1.2-3.4); LYMPH % 6.5 % (22.0-35.0); MEAN CELL VOLUME 90.3 fl (80.0-105.0); MEAN CORPUSCULAR HEMOGLOBIN 29.4 pg (25.0-35.0); MEAN CORPUSCULAR HGB CONC 32.6 g/dl (31.0-37.0); MEAN PLATELET VOLUME 10.4 fl (7.0-11.0); MONO # 1.2 (0.1-0.6); MONO % 5.3 % (1.0-6.0); RBC 2.89 10^6/uL (3.5-6.1); RED CELL DISTRIBUTION WIDTH 14.9 % (11.5-14.5)
[2018-02-09 07:13] LABS: ALB/GLOB RATIO 0.8 (1.1-1.8); ALBUMIN 2.2 g/dL (3.0-4.8); ALT/SGPT 40 U/L (7-56); AST/SGOT 37 U/L (17-59); BLOOD UREA NITROGEN 24 mg/dL (7-21); CALCIUM 7.1 mg/dL (8.4-10.5); GFR NON-AFRICAN AMERICAN > 60
--- NOTE | 2018-02-09 07:44 | CP.PCM.PN ---
<Irma Conner - Last Filed: 02/09/18 12:26> Subjective - Date & Time of Evaluation Date of Evaluation: 02/09/18 Time of Evaluation: 07:00 - Subjective Subjective: PGY-3 medicine progress note for Dr. Garay's service Patient seen and examined at bedside in ICU. No acute distress. Nurse reports no events overnight. Patient denies any pain, chest pain, sob, abd pain, n/v. BP has improved, currently on vasopressin. Objective - Vital Signs/Intake and Output Vital Signs (last 24 hours): Temp Pulse Resp BP Pulse Ox 98.7 F 42 L 26 H 109/47 L 99 02/08/18 16:00 02/09/18 04:10 02/09/18 04:03 02/09/18 04:03 02/09/18 04:10 - Medications Medications: Current Medications Atorvastatin Calcium (Lipitor) 40 mg PO DAILY [facility] Last Admin: 02/08/18 16:21 Dose: 40 mg Clopidogrel Bisulfate (Plavix) 75 mg PO DAILY [facility] Last Admin: 02/08/18 09:52 Dose: 75 mg Docusate Sodium (Colace) 100 mg PO TID [facility] Last Admin: 02/08/18 18:29 Dose: Not Given Enoxaparin Sodium (Lovenox) 40 mg SC DAILY [facility]; Protocol Last Admin: 02/08/18 09:53 Dose: 40 mg Famotidine (Pepcid) 20 mg IVP DAILY [facility] Last Admin: 02/08/18 09:52 Dose: 20 mg Hydrocortisone Sodium Succinate (Solu-Cortef) 50 mg IV Q6H [facility] Last Admin: 02/09/18 06:57 Dose: 50 mg Meropenem (Merrem Iv 1 Gm Premix) 1 gm in 50 mls @ 12.5 mls/hr IVPB Q8 [facility]; Protocol Stop: 02/17/18 06:23 Last Admin: 02/09/18 06:00 Dose: 12.5 mls/hr Vancomycin HCl (Vancomycin 1gm) 1 gm in 250 mls @ 167 mls/hr IVPB Q12H [facility]; Protocol Stop: 02/17/18 08:01 Last Admin: 02/08/18 19:51 Dose: 167 mls/hr Lactated Ringer's (Lactated Ringer's) 1,000 mls @ 100 mls/hr IV .Q10H [facility] Last Admin: 02/09/18 06:01 Dose: 100 mls/hr Polyethylene Glycol (Miralax) 17 gm PO BID [facility] Last Admin: 02/08/18 09:53 Dose: 17 gm Potassium Phos/Sodium Phos (Neutra-Phos) 1 pkt PO Q6H [facility] Stop: 02/09/18 13:46 Tamsulosin HCl (Flomax) 0.4 mg PO DAILY [facility] Last Admin: 02/08/18 09:52 Dose: 0.4 mg - Labs Labs: 02/09/18 05:20 02/09/18 05:20 PT 14.3 SECONDS (9.4-12.5) H 02/08/18 02:20 INR 1.24 02/08/18 02:20 APTT 31.0 Seconds (25.1-36.5) 02/08/18 02:20 - Additional Findings Additional findings: - Constitutional Appears: No Acute Distress - Head Exam Head Exam: ATRAUMATIC, NORMAL INSPECTION, NORMOCEPHALIC - Eye Exam Eye Exam: EOMI, Normal appearance. absent: Conjunctival injection, Scleral icterus - ENT Exam ENT Exam: Mucous Membranes Dry absent: Mucous Membranes Moist - Neck Exam Neck exam: Positive for: Full Rom. Negative for: Meningismus, Thyromegaly Additional comments: triple lumen central line placed, right - Respiratory Exam Respiratory Exam: Clear to Auscultation Bilateral, NORMAL BREATHING PATTERN. absent: Accessory Muscle Use, Chest Wall Tenderness, Decreased Breath Sounds, Rales, Rhonchi, Wheezes, Respiratory Distress - Cardiovascular Exam Cardiovascular Exam: REGULAR RHYTHM, RRR, +S1. absent: Bradycardia, Tachycardia, Diastolic murmur, JVD, Systolic Murmur - GI/Abdominal Exam GI & Abdominal Exam: Normal Bowel Sounds, Soft. absent: Diminished Bowel Sounds, Distended, Firm, Mass, Rebound, Tenderness Additional comments: multiple small incisions from lap cholecystectomy - Extremities Exam Extremities exam: Positive for: normal inspection, pedal edema. Negative for: calf tenderness, tenderness - Neurological Exam Neurological exam: Alert, CN II-XII Intact, Oriented x3 Additional comments: paraplegia of lower extremities - Psychiatric Exam Psychiatric exam: Normal Affect, Normal Mood Additional comments: no agitation, anxiety, depression - Skin Skin Exam: Dry, Intact, Normal Color, Pallor, Warm Assessment and Plan - Assessment and Plan (Free Text) Assessment: - septic shock most likely due to UTI, cystitis vs abscess, - hyponatremia - most likely pre- renal - hypophosphatemia - urinary retention - HTN - CAD s/p stent, paraplegia s/p fall, bladder outlet obstruction Labs and imaging reviewed. Is afebrile overnight with improving leukocytosis. Patient is off pressors and BP has improved. Will continue IVF at 75cc. Urine culture was positive fro gram neagtive rods. ID was consulted, started Merrem and vancomycin. Procal was elavted 1.22. Blood cultures negative for [address] abd pelvis showed constipation, enteritis, severe cystitis and suggestion of a small fluid collection in the gallbladder fossa may represent a small post- surgical seroma, need to exclude an abscess. Surgery was consulted for fluid collection. HIDA did not show any bilary leak. In the ED izaguirre was changed. Urology was consulted recommended keeping izaguirre. CXR was negative for infiltrates. Continue to hold home HTN medication. Patient has been bradycardic, will get cardiology consult. Hyponatremic improved. Hypophosphatemia will replace. Solu-cortef decreased to britney off. For his constipation patient was started on Miralax, colace. Patient is currently in ICU. Case reviewed and discussed with Dr. Garay <Wilmer Garay S - Last Filed: 02/09/18 21:04> Objective - Vital Signs/Intake and Output Vital Signs (last 24 hours): Temp Pulse Resp BP Pulse Ox 97.5 F L 54 L 16 105/48 L 99 02/09/18 04:00 02/09/18 07:50 02/09/18 07:50 02/09/18 07:15 02/09/18 07:50 Intake and Output: 02/09/18 02/10/18 18:59 06:59 Intake Total 810 Output Total 1100 Balance -290 - Medications Medications: Current Medications Atorvastatin Calcium (Lipitor) 40 mg PO DAILY [facility] Last Admin: 02/09/18 10:35 Dose: 40 mg Clopidogrel Bisulfate (Plavix) 75 mg PO DAILY [facility] Last Admin: 02/09/18 10:33 Dose: 75 mg Docusate Sodium (Colace) 100 mg PO TID [facility] Last Admin: 02/09/18 18:00 Dose: Not Given Enoxaparin Sodium (Lovenox) 40 mg SC DAILY [facility]; Protocol Last Admin: 02/09/18 10:29 Dose: 40 mg Famotidine (Pepcid) 40 mg PO HS [facility] Hydrocortisone Sodium Succinate (Solu-Cortef) 50 mg IV Q12H [facility] Last Admin: 02/09/18 20:38 Dose: 50 mg Meropenem (Merrem Iv 1 Gm Premix) 1 gm in 50 mls @ 12.5 mls/hr IVPB Q8 [facility]; Pro tocol Stop: 02/17/18 06:23 Last Admin: 02/09/18 15:41 Dose: 12.5 mls/hr Vancomycin HCl (Vancomycin 1gm) 1 gm in 250 mls @ 167 mls/hr IVPB Q12H [facility]; Protocol Stop: 02/17/18 08:01 Last Admin: 02/09/18 20:37 Dose: 167 mls/hr Polyethylene Glycol (Miralax) 17 gm PO BID [facility] Last Admin: 02/09/18 18:01 Dose: Not Given Tamsulosin HCl (Flomax) 0.4 mg PO DAILY [facility] Last Admin: 02/09/18 10:34 Dose: 0.4 mg Vitamin A (Vitamin A & D Oint Ud Foilpak) 1 ea TOP TID PRN PRN Reason: Dry mouth - Labs Labs: 02/09/18 05:20 02/09/18 05:20 PT 14.3 SECONDS (9.4-12.5) H 02/08/18 02:20 INR 1.24 02/08/18 02:20 APTT 31.0 Seconds (25.1-36.5) 02/08/18 02:20 Assessment and Plan - Assessment and Plan (Free Text) Assessment: Pt seen and examined. I have reviewed the note of the medical officer and agree with it. I have discussed the assessment and plan with the resident. I have reviewed the patient's labs and medications. Pt with Septic shock and now has been taken off levophed. Pt is on IVF and will continue. Spoke to Dr Campos from surgery. CT reviewed. May need drainage of seroma. Hypophospatemia will be treated with phosphate supplements. HIDA did not show leak. Pt with asymptomatic bradycardia. I will get machinist helper marine consult.
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
[2018-02-09] MEDS: Vancomycin 1gm in NS 250ml 1 GM/250 ML BAG IVPB SCH ×2 (08:17→20:37)
[2018-02-09] MEDS: Potassium & Sodium Phosphate PO SCH ×2 (08:17→15:43)
[2018-02-09] MEDS: Enoxaparin 40 mg Syringe SC SCH (10:29)
[2018-02-09] MEDS: POLYETHYLENE GLYCOL 3350 17 GM/Dose PACKET PO SCH ×2 (10:36→18:01)
[2018-02-09] MEDS ORDERED: Vitamins A & D Oint UD Foilpak TOP PRN (14:13)
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
[2018-02-10] MEDS: Meropenem IV 1 gm in NS 1 GM/50 ML BAG IVPB SCH ×3 (05:46→21:17)
[2018-02-10 06:18] LABS: BASO # 0.01 K/mm3 (0.0-2.0); BASO % 0.1 % (0.0-3.0); GRAN # 12.08 (1.4-6.5); LYMPH # 1.5 (1.2-3.4); LYMPH % 10.5 % (22.0-35.0); MEAN CELL VOLUME 89.2 fl (80.0-105.0); MEAN CORPUSCULAR HEMOGLOBIN 29.4 pg (25.0-35.0); MEAN PLATELET VOLUME 10.7 fl (7.0-11.0); MONO # 0.8 (0.1-0.6); MONO % 5.4 % (1.0-6.0); RBC 3.06 10^6/uL (3.5-6.1); RED CELL DISTRIBUTION WIDTH 14.7 % (11.5-14.5); WHITE BLOOD COUNT 14.4 10^3/ul (4.5-11.0)
--- NOTE | 2018-02-10 06:21 | PQF ---
PROVIDER RESPONSE TEXT: Septic shock with gram neg shu secondary to urine as source most likely secondary to urinary cath rel ated REVIEWER QUERY TEXT: Clarification of Clinical Diagnostic Findings Please clarify documentation or clinical relevance for the clinical / diagnostic findings or whether those are insignificant or unable to be further specified. The patient's Clinical Indicators include: Presented w/ Septic shock, urine as source- Gram neg rods. HIDA shows no biliary leak. Admitted w/ in dwelling catheter . Do you feel this is cath related UTI Query created by: Gina Barerra on 02/09/2018 10:56 AM Electronically signed by: Ramses Floyd MD 02/10/2018 6:19 AM
[2018-02-10 07:13] LABS: ALB/GLOB RATIO 0.8 (1.1-1.8); ALBUMIN 2.1 g/dL (3.0-4.8); ALT/SGPT 39 U/L (7-56); AST/SGOT 34 U/L (17-59); BLOOD UREA NITROGEN 19 mg/dL (7-21); CALCIUM 7.2 mg/dL (8.4-10.5); GFR NON-AFRICAN AMERICAN > 60
--- NOTE | 2018-02-10 07:45 | CP.PCM.PN ---
<Irma Conner - Last Filed: 02/10/18 13:54> Subjective - Date & Time of Evaluation Date of Evaluation: 02/10/18 Time of Evaluation: 07:44 - Subjective Subjective: PGY-3 medicine progress note for Dr. Garay's service Patient seen and examined at bedside in ICU. No acute distress. at bedside. Nurse reports no events overnight. Patient denies any pain, chest pain, sob, abd pain, n/v. BP has improved, currently off pressors. Objective - Vital Signs/Intake and Output Vital Signs (last 24 hours): Temp Pulse Resp BP Pulse Ox 97.3 F L 50 L 17 109/51 L 100 02/10/18 04:00 02/10/18 06:00 02/09/18 22:10 02/09/18 22:00 02/09/18 22:10 Intake and Output: 02/10/18 02/10/18 06:59 18:59 Intake Total 1450 Output Total 3000 Balance -1550 - Medications Medications: Current Medications Atorvastatin Calcium (Lipitor) 40 mg PO DAILY [facility] Last Admin: 02/09/18 10:35 Dose: 40 mg Clopidogrel Bisulfate (Plavix) 75 mg PO DAILY [facility] Last Admin: 02/09/18 10:33 Dose: 75 mg Docusate Sodium (Colace) 100 mg PO TID [facility] Last Admin: 02/09/18 18:00 Dose: Not Given Enoxaparin Sodium (Lovenox) 40 mg SC DAILY [facility]; Protocol Last Admin: 02/09/18 10:29 Dose: 40 mg Famotidine (Pepcid) 40 mg PO HS [facility] Last Admin: 02/09/18 21:10 Dose: 40 mg Hydrocortisone Sodium Succinate (Solu-Cortef) 50 mg IV Q12H [facility] Last Admin: 02/09/18 20:38 Dose: 50 mg Meropenem (Merrem Iv 1 Gm Premix) 1 gm in 50 mls @ 12.5 mls/hr IVPB Q8 [facility]; Protocol Stop: 02/17/18 06:23 Last Admin: 02/10/18 05:46 Dose: 12.5 mls/hr Polyethylene Glycol (Miralax) 17 gm PO BID [facility] Last Admin: 02/09/18 18:01 Dose: Not Given Tamsulosin HCl (Flomax) 0.4 mg PO DAILY [facility] Last Admin: 02/09/18 10:34 Dose: 0.4 mg Vitamin A (Vitamin A & D Oint Ud Foilpak) 1 ea TOP TID PRN PRN Reason: Dry mouth - Labs Labs: 02/10/18 05:20 02/10/18 05:20 PT 14.3 SECONDS (9.4-12.5) H 02/08/18 02:20 INR 1.24 02/08/18 02:20 APTT 31.0 Seconds (25.1-36.5) 02/08/18 02:20 - Additional Findings Additional findings: - Constitutional Appears: No Acute Distress - Head Exam Head Exam: ATRAUMATIC, NORMAL INSPECTION, NORMOCEPHALIC - Eye Exam Eye Exam: EOMI, Normal appearance. absent: Conjunctival injection, Scleral icterus - ENT Exam ENT Exam: Mucous Membranes Dry absent: Mucous Membranes Moist - Neck Exam Neck exam: Positive for: Full Rom. Negative for: Meningismus, Thyromegaly Additional comments: triple lumen central line placed, right - Respiratory Exam Respiratory Exam: Clear to Auscultation Bilateral, NORMAL BREATHING PATTERN. absent: Accessory Muscle Use, Chest Wall Tenderness, Decreased Breath Sounds, Rales, Rhonchi, Wheezes, Respiratory Distress - Cardiovascular Exam Cardiovascular Exam: REGULAR RHYTHM, RRR, +S1. absent: Bradycardia, Tachycardia, Diastolic murmur, JVD, Systolic Murmur - GI/Abdominal Exam GI & Abdominal Exam: Normal Bowel Sounds, Soft. absent: Diminished Bowel Sounds, Distended, Firm, Mass, Rebound, Tenderness - Extremities Exam Extremities exam: Positive for: normal inspection, pedal edema. Negative for: calf tenderness, tenderness - Neurological Exam Neurological exam: Alert, CN II-XII Intact, Oriented x3 Additional comments: paraplegia of lower extremities - Psychiatric Exam Psychiatric exam: Normal Affect, Normal Mood Additional comments: no agitation, anxiety, depression - Skin Skin Exam: Dry, Intact, Normal Color, Pallor, Warm Assessment and Plan - Assessment and Plan (Free Text) Assessment: - septic shock most likely due to UTI, cystitis - hyponatremia - most likely pre- renal - hypophosphatemia - urinary retention - HTN - CAD s/p stent, paraplegia s/p fall, bladder outlet obstruction Labs and imaging reviewed. Is afebrile overnight with improving leukocytosis. Patient is off pressors and BP has improved. Urine culture was positive for gram neagtive rods, pending final results. ID was consulted. Procal was elavted. Blood cultures negative for 48 hours. currently on Merrem. continue to taper steriods. CT abd pelvis showed constipation, enteritis, severe cystitis and suggestion of a small fluid collection in the gallbladder fossa may represent a small post-surgical seroma, need to exclude an abscess. Surgery was consulted for fluid collection. HIDA did not show any bilary leak. In the ED izaguirre was changed. IR was consulted for aspiration of fluid in gallbladder fossa. Urology was consulted recommended keeping izaguirre. CXR was negative for infiltrates. Continue to hold home HTN medication. Patient has been bradycardic, cardiology consult. Hyponatremic improved. Hypophosphatemia will be replaced, repeat in AM. Patient was transferred out of ICU, currently tele hold.. Case reviewed and discussed with Dr. Garay <Wilmer Garay S - Last Filed: 02/10/18 16:10> Objective - Vital Signs/Intake and Output Vital Signs (last 24 hours): Temp Pulse Resp BP Pulse Ox 97.3 F L 50 L 17 109/51 L 100 02/10/18 04:00 02/10/18 06:00 02/09/18 22:10 02/09/18 22:00 02/09/18 22:10 Intake and Output: 02/10/18 02/10/18 06:59 18:59 Intake Total 1450 Output Total 3000 Balance -1550 - Medications Medications: Current Medications Atorvastatin Calcium (Lipitor) 40 mg PO DAILY [facility] Last Admin: 02/10/18 09:24 Dose: 40 mg Clopidogrel Bisulfate (Plavix) 75 mg PO DAILY [facility] Last Admin: 02/10/18 09:24 Dose: 75 mg Docusate Sodium (Colace) 100 mg PO TID [facility] Last Admin: 02/10/18 13:45 Dose: 100 mg Enoxaparin Sodium (Lovenox) 40 mg SC DAILY [facility]; Protocol Last Admin: 02/10/18 10:00 Dose: Not Given Famotidine (Pepcid) 40 mg PO HS [facility] Last Admin: 02/09/18 21:10 Dose: 40 mg Hydrocortisone Sodium Succinate (Solu-Cortef) 50 mg IV DAILY [facility] Meropenem (Merrem Iv 1 Gm Premix) 1 gm in 50 mls @ 12.5 mls/hr IVPB Q8 [facility]; Protocol Stop: 02/17/18 06:23 Last Admin: 02/10/18 13:44 Dose: 12.5 mls/hr Polyethylene Glycol (Miralax) 17 gm PO BID [facility] Last Admin: 02/10/18 09:25 Dose: 17 gm Potassium Phos/Sodium Phos (Neutra-Phos) 1 pkt PO TID [facility] Stop: 02/11/18 11:00 Last Admin: 02/10/18 14:43 Dose: Not Given Tamsulosin HCl (Flomax) 0.4 mg PO DAILY [facility] Last Admin: 02/10/18 09:24 Dose: 0.4 mg Vitamin A (Vitamin A & D Oint Ud Foilpak) 1 ea TOP TID PRN PRN Reason: Dry mouth - Labs Labs: 02/10/18 05:20 02/10/18 05:20 PT 14.3 SECONDS (9.4-12.5) H 02/08/18 02:20 INR 1.24 02/08/18 02:20 APTT 31.0 Seconds (25.1-36.5) 02/08/18 02:20 Assessment and Plan - Assessment and Plan (Free Text) Assessment: Pt seen and examined. I have reviewed the note of the diagnostic medical sonographer and agree with it. I have discussed the assessment and plan with the resident. I have reviewed the patient's labs and medications. Pt with septic shock due to UTI. He is on IV Abx. Wating for UCx. Spoke to to give update. He will get an aspiration of his seroma. He is waiting to go leave the ICU. He is being followed by ID. Phosp being replaced. Hyponatremia is improving. Surgery is following. Pt with bradycardia but no symptomatic.
[2018-02-10] MEDS: Enoxaparin 40 mg Syringe SC SCH ×2 (09:23→10:00)
[2018-02-10] MEDS: POLYETHYLENE GLYCOL 3350 17 GM/Dose PACKET PO SCH ×2 (09:25→17:38)
--- NOTE | 2018-02-10 11:42 | CON ---
DATE: 02/10/2018 CONSULTATION INDICATIONS: Sinus bradycardia. HISTORY OF PRESENT ILLNESS: This is an 82-year-old man who is well known to me, admitted on the 02/08 with fever and urosepsis. He has a long complicated recent medical history. He presented in November with ascending cholangitis, underwent gallbladder drainage and transferred to [facility] where he underwent GI evaluation. He was ultimately stabilized. In January, he underwent definitive cholecystectomy. Subsequently he developed fever and was found to have a urinary tract infection with sepsis related to an indwelling Sarmiento catheter. He has been treated with antibiotics. He is improved and stabilized in the Intensive Care Unit. He has been found to have sinus bradycardia. Cardiology consultation was requested. Today, he is resting comfortably in bed. There is no chest pain, shortness of breath, dizziness, lightheadedness, palpitation, edema, rigor, sweats, cough, sputum production, hemoptysis, nausea, vomiting, diarrhea, constipation, melena. PAST MEDICAL HISTORY: Additional past medical history includes coronary artery disease, moderate aortic stenosis, hypertension, paraplegia following a remote fall, hyperlipidemia, history of back surgery, history of prostate surgery. MEDICATIONS: At the time of admission included atorvastatin, Plavix, metoprolol, Culturelle, Flomax. His current medications include Colace, Flomax, Lipitor, Lovenox, meropenem, Pepcid, Plavix, hydrocortisone. ALLERGIES: NOTED TO DIATRIZOATE SODIUM. SOCIAL HISTORY: He does not smoke. He does not drink. He lives at home with his . He is wheelchair-bound. FAMILY HISTORY: Noncontributory. REVIEW OF SYSTEMS: A 10-point review of systems otherwise unremarkable except as noted above. PHYSICAL EXAMINATION: GENERAL: He is a well-developed male lying in bed in the CCU in no acute distress. VITAL SIGNS: Notable for sinus bradycardia in the 50s, afebrile, 109/51, respirations 16-26, O2 sat 99%-100% on room air. HEENT: Exam reveals no neck vein distention, thyromegaly, carotid bruits. Mucous membranes moist. Conjunctiva pink. NECK: Supple. LUNGS: Lung robledo clear. HEART: Revealed normal first and second heart sounds. Soft systolic murmur in the aortic space along the left sternal border. ABDOMEN: Soft. Bowel sounds present. No mass, organomegaly, tenderness, rebound or guarding. No CVA tenderness. No palpable abdominal aortic aneurysm. EXTREMITIES: Exam revealed no cyanosis, clubbing or edema. NEUROLOGICALLY: Awake, alert and oriented. PSYCHIATRIC: Normal as to mood and affect. SKIN: Warm and dry. No rash or cellulitis. LABORATORY AND IMAGING: A chest x-ray revealed no acute findings. Abdomen and pelvis CT revealed small fluid collection in the gallbladder fossa, etc., see report. A body scan revealed no evidence of biliary leak or biliary obstruction. EKG demonstrates sinus bradycardia, 48 beats per minute, right bundle-branch block, left anterior hemiblock. White count 14,000, hemoglobin 9, hematocrit 27.3, platelet count 333,000. PT 14.3, INR and PTT normal. Blood gases are noted. Electrolytes, BUN, creatinine unremarkable. Magnesium 2.2. LFTs are unremarkable. Procalcitonin elevated at 1.22. Urinalysis is abnormal. Two blood cultures are no growth at 48 hours. Urine culture, gram-negative shu. IMPRESSION: Bertrand Almendarez is an 82-year-old man known to me, admitted with urosepsis due to gram-negative shu with indwelling Sarmiento catheter. He is status post recent course of ascending cholangitis with gallbladder surgery on 01/27. He has had sinus bradycardia and metoprolol is on hold for the time being. He is being followed by Surgery and Infectious Diseases. He is on meropenem. Culture identification is pending. He is getting Flomax, Lipitor, Lovenox, Pepcid, Plavix, hydrocortisone. We will monitor I's and O's and heart rate. For the time being, I would hold metoprolol. I will review his old records. I will follow along with you. I will make additional recommendations based on his clinical course. Bear King MD MTDJeremy
[2018-02-10] MEDS: Potassium & Sodium Phosphate PO SCH ×2 (14:43→17:38)
[2018-02-10] MEDS ORDERED: Lidocaine 1% Inj (20ml) ONE (15:07)
[2018-02-10] MEDS ORDERED: Midazolam 2 MG/2 ML VIAL ONE (15:07)
[2018-02-10] MEDS ORDERED: Midazolam 2 MG/2 ML VIAL IVP ONE ×2 (17:30→18:00)
--- NOTE | 2018-02-10 17:31 | CT ---
Date of service: 02/10/2018 PROCEDURE: CT-guided aspiration right upper quadrant fluid collection HISTORY: RUQ ASPIRATION. Recent gallbladder removal. Fluid collection in the right upper quadrant. Evaluate for abscess. COMPARISON: TECHNIQUE: The relative risks and indications of the procedure were explained to the patient is and consent obtained. Patient placed supine on the CT scan preliminary images the right upper quadrant performed. This revealed a small 3.2 cm fluid collection adjacent to the lower aspect the liver and hepatic flexure. A right lateral approach was selected the area prepped and draped usual sterile fashion. Conscious sedation monitoring were provided throughout the procedure by a nurse. A 19 gauge thin-walled needle was advanced into the collection and 3 cc of pink serous fluid aspirated. The specimen was sent for microbiology. The patient tolerated the procedure well. FINDINGS: IMPRESSION: CT-guided aspiration was small right upper quadrant fluid collection as described above.
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
[2018-02-11 04:21] VITALS: O2SAT 97
[2018-02-11] MEDS: Meropenem IV 1 gm in NS 1 GM/50 ML BAG IVPB SCH ×3 (04:59→21:41)
[2018-02-11] MEDS ORDERED: MethylPREDNISolone 40 mg Vial IV STA (06:08)
[2018-02-11] MEDS ORDERED: Sodium Chloride 0.9% 1,000 ML IV STA (06:12)
[2018-02-11] MEDS ORDERED: Albuterol-Ipratrop 3 mg / 0.5 (3 ml) UD IH STA (06:16)
[2018-02-11] MEDS ORDERED: Amikacin 500 MG in Dextrose 5% In Water 100 ML IVPB STA (06:22)
[2018-02-11] MEDS: Vancomycin 1gm in NS 250ml 1 GM/250 ML BAG IVPB SCH ×3 (06:33→22:13)
[2018-02-11 07:33] LABS: BASO # 0.01 K/mm3 (0.0-2.0); BASO % 0.1 % (0.0-3.0); EOS % 0.4 % (1.5-5.0); GRAN # 7.65 (1.4-6.5); GRAN % 83.6 % (50.0-68.0); LYMPH # 1.4 (1.2-3.4); LYMPH % 15.6 % (22.0-35.0); MEAN CELL VOLUME 90.9 fl (80.0-105.0); MEAN CORPUSCULAR HEMOGLOBIN 29.3 pg (25.0-35.0); MEAN CORPUSCULAR HGB CONC 32.3 g/dl (31.0-37.0); MEAN PLATELET VOLUME 10.9 fl (7.0-11.0); MONO % 0.3 % (1.0-6.0); RBC 3.75 10^6/uL (3.5-6.1); WHITE BLOOD COUNT 9.2 10^3/ul (4.5-11.0)
[2018-02-11 07:44] LABS: ALB/GLOB RATIO 0.8 (1.1-1.8); ALBUMIN 2.7 g/dL (3.0-4.8); ALT/SGPT 51 U/L (7-56); AST/SGOT 67 U/L (17-59); BLOOD UREA NITROGEN 17 mg/dL (7-21); CALCIUM 7.5 mg/dL (8.4-10.5); GFR NON-AFRICAN AMERICAN > 60
--- NOTE | 2018-02-11 08:13 | CP.PCM.PN ---
Subjective - Date & Time of Evaluation Date of Evaluation: 02/11/18 Time of Evaluation: 07:00 - Subjective Subjective: He became febrile early AM with rigor and wheezing reported. He improved with tx. No CP. He a GB fossa cyst tap yesterday. V/S noted. 114/91 HR 56 - 100 range. 101 F PE: Lungs: rhonchi Cor: S1S2 DARRIN Abd.: soft Ext.: no edema Neuro.: alert I/O= [id number]/1300 recorded Labs: CMP, CBC OK BC X2 NG at 3 days Urine: + Klebs pneum. Objective - Vital Signs/Intake and Output Vital Signs (last 24 hours): Temp Pulse Resp BP Pulse Ox 98.8 F 100 H 27 H 114/91 H 97 02/11/18 06:26 02/11/18 07:50 02/11/18 07:50 02/11/18 06:05 02/11/18 07:50 Intake and Output: 02/11/18 02/11/18 06:59 18:59 Intake Total 1600 Output Total 1200 Balance 400 - Medications Medications: Current Medications Atorvastatin Calcium (Lipitor) 40 mg PO DAILY [facility] Last Admin: 02/10/18 09:24 Dose: 40 mg Clopidogrel Bisulfate (Plavix) 75 mg PO DAILY [facility] Last Admin: 02/10/18 09:24 Dose: 75 mg Docusate Sodium (Colace) 100 mg PO TID [facility] Last Admin: 02/10/18 17:38 Dose: 100 mg Enoxaparin Sodium (Lovenox) 40 mg SC DAILY [facility]; Protocol Last Admin: 02/10/18 10:00 Dose: Not Given Famotidine (Pepcid) 40 mg PO HS [facility] Last Admin: 02/10/18 21:18 Dose: 40 mg Hydrocortisone Sodium Succinate (Solu-Cortef) 50 mg IV DAILY [facility] Meropenem (Merrem Iv 1 Gm Premix) 1 gm in 50 mls @ 12.5 mls/hr IVPB Q8 [facility]; Protocol Stop: 02/17/18 06:23 Last Admin: 02/11/18 04:59 Dose: 12.5 mls/hr Vancomycin HCl (Vancomycin 1gm) 1 gm in 250 mls @ 167 mls/hr IVPB Q12H [facility]; Protocol Last Admin: 02/11/18 06:33 Dose: 167 mls/hr Polyethylene Glycol (Miralax) 17 gm PO BID [facility] Last Admin: 02/10/18 17:38 Dose: 17 gm Potassium Phos/Sodium Phos (Neutra-Phos) 1 pkt PO TID [facility] Stop: 02/11/18 11:00 Last Admin: 02/10/18 17:38 Dose: 1 pkt Tamsulosin HCl (Flomax) 0.4 mg PO DAILY [facility] Last Admin: 02/10/18 09:24 Dose: 0.4 mg Vitamin A (Vitamin A & D Oint Ud Foilpak) 1 ea TOP TID PRN PRN Reason: Dry mouth - Labs Labs: 02/11/18 05:40 02/11/18 05:40 PT 14.3 SECONDS (9.4-12.5) H 02/08/18 02:20 INR 1.24 02/08/18 02:20 APTT 31.0 Seconds (25.1-36.5) 02/08/18 02:20 Assessment and Plan - Assessment and Plan (Free Text) Assessment: Urosepsis with recur. fever this AM S/P GB fossa cyst tap yesterday S/P ascending cholangitis with GB drainage 12/11, with recent cholecystectomy 01/27. HBP HLD , moderate CAD, mild Paraplegia after remote fall, wheelchair bound H/O back surgery with hardware in place H/O prostate surgery Plan: As per Dr. Tanisha BOTELLO, Intensivists, Surgery and Uro. Hold metoprolol for now. Re-culture Continue in CCU Monitor: I/O, labs, cultures, sats., etc Will follow.
[2018-02-11 08:29] LABS: URINE BILIRUBIN NEGATIVE (NEGATIVE); URINE BLOOD MODERATE (NEGATIVE); URINE GLUCOSE (UA) NEGATIVE (NEGATIVE); URINE LEUKOCYTE ESTERASE LARGE Leu/uL (NEGATIVE); URINE PROTEIN TRACE mg/dL (<30 mg/dL); URINE UROBILINOGEN 0.2 E.U./dL (<1 E.U./dL)
[2018-02-11 08:30] LABS: URINE APPEARANCE TURBID (CLEAR); URINE COLOR LIGHT YELLOW (YELLOW)
[2018-02-11 08:44] LABS: URINE RBC TNTC /hpf (0-2)
[2018-02-11 08:45] LABS: URINE BACTERIA LARGE (NEG); URINE WBC TNTC /hpf (0-6)
--- NOTE | 2018-02-11 09:09 | CP.PCM.PN ---
<Irma Conner - Last Filed: 02/11/18 09:08> Subjective - Date & Time of Evaluation Date of Evaluation: 02/11/18 Time of Evaluation: 07:00 - Subjective Subjective: PGY-3 medicine progress note for Dr. Garay's service Patient seen and examined at bedside in ICU. at bedside. Yesterday patient had drainage fluid in gallbladder fossa. Early this AM patient developed chills and fever of 101. Patient denies any pain, chest pain, sob, abd pain, n/v. BP has improved, currently off pressors. Objective - Vital Signs/Intake and Output Vital Signs (last 24 hours): Temp Pulse Resp BP Pulse Ox 101 F H 100 H 27 H 114/91 H 97 02/11/18 07:26 02/11/18 07:50 02/11/18 07:50 02/11/18 06:05 02/11/18 07:50 Intake and Output: 02/11/18 02/11/18 06:59 18:59 Intake Total 1600 Output Total 1200 Balance 400 - Medications Medications: Current Medications Atorvastatin Calcium (Lipitor) 40 mg PO DAILY [facility] Last Admin: 02/10/18 09:24 Dose: 40 mg Clopidogrel Bisulfate (Plavix) 75 mg PO DAILY [facility] Last Admin: 02/10/18 09:24 Dose: 75 mg Docusate Sodium (Colace) 100 mg PO TID [facility] Last Admin: 02/10/18 17:38 Dose: 100 mg Enoxaparin Sodium (Lovenox) 40 mg SC DAILY [facility]; Protocol Last Admin: 02/10/18 10:00 Dose: Not Given Famotidine (Pepcid) 40 mg PO HS [facility] Last Admin: 02/10/18 21:18 Dose: 40 mg Hydrocortisone Sodium Succinate (Solu-Cortef) 50 mg IV DAILY [facility] Stop: 02/11/18 16:00 Meropenem (Merrem Iv 1 Gm Premix) 1 gm in 50 mls @ 12.5 mls/hr IVPB Q8 [facility]; Protocol Stop: 02/17/18 06:23 Last Admin: 02/11/18 04:59 Dose: 12.5 mls/hr Vancomycin HCl (Vancomycin 1gm) 1 gm in 250 mls @ 167 mls/hr IVPB Q12H [facility]; Protocol Last Admin: 02/11/18 06:33 Dose: 167 mls/hr Polyethylene Glycol (Miralax) 17 gm PO BID [facility] Last Admin: 02/10/18 17:38 Dose: 17 gm Potassium Phos/Sodium Phos (Neutra-Phos) 1 pkt PO TID [facility] Stop: 02/11/18 11:00 Last Admin: 02/10/18 17:38 Dose: 1 pkt Potassium Phos/Sodium Phos (Neutra-Phos) 1 pkt PO TID [facility] Stop: 02/14/18 05:00 Tamsulosin HCl (Flomax) 0.4 mg PO DAILY [facility] Last Admin: 02/10/18 09:24 Dose: 0.4 mg Vitamin A (Vitamin A & D Oint Ud Foilpak) 1 ea TOP TID PRN PRN Reason: Dry mouth - Labs Labs: 02/11/18 05:40 02/11/18 05:40 PT 14.3 SECONDS (9.4-12.5) H 02/08/18 02:20 INR 1.24 02/08/18 02:20 APTT 31.0 Seconds (25.1-36.5) 02/08/18 02:20 - Additional Findings Additional findings: - Constitutional Appears: No Acute Distress - Head Exam Head Exam: ATRAUMATIC, NORMAL INSPECTION, NORMOCEPHALIC - Eye Exam Eye Exam: EOMI, Normal appearance. absent: Conjunctival injection, Scleral icterus - ENT Exam ENT Exam: Mucous Membranes Dry absent: Mucous Membranes Moist - Neck Exam Neck exam: Positive for: Full Rom. Negative for: Meningismus, Thyromegaly Additional comments: triple lumen central line placed, right - Respiratory Exam Respiratory Exam: Clear to Auscultation Bilateral, NORMAL BREATHING PATTERN. absent: Accessory Muscle Use, Chest Wall Tenderness, Decreased Breath Sounds, Rales, Rhonchi, Wheezes, Respiratory Distress - Cardiovascular Exam Cardiovascular Exam: REGULAR RHYTHM, RRR, +S1. absent: Bradycardia, Tachycardia, Diastolic murmur, JVD, Systolic Murmur - GI/Abdominal Exam GI & Abdominal Exam: Normal Bowel Sounds, Soft. absent: Diminished Bowel Sounds , Distended, Firm, Mass, Rebound, Tenderness - Extremities Exam Extremities exam: Positive for: normal inspection, pedal edema. Negative for: calf tenderness, tenderness - Neurological Exam Neurological exam: Alert, CN II-XII Intact, Oriented x3 Additional comments: paraplegia of lower extremities - Psychiatric Exam Psychiatric exam: Normal Affect, Normal Mood Additional comments: no agitation, anxiety, depression - Skin Skin Exam: Dry, Intact, Normal Color, Pallor, Warm Assessment and Plan - Assessment and Plan (Free Text) Assessment: - septic shock most likely due to UTI, cystitis - hyponatremia - most likely pre- renal - hypophosphatemia - urinary retention - HTN - CAD s/p stent, paraplegia s/p fall, bladder outlet obstruction Labs and imaging reviewed. Early this AM patient developed chills and fever of 101. most likely due to the procedure. Repeat blood cultures were ordered as well as xcr. He was started on vanco and IVFs. Merrem will be continued. Urine culture was positive for klebsiella. ID is following. Blood cultures negative for 3 days. continue to taper steroids, will stop tomorrow. CT abd pelvis on admission showed severe cystitis and small fluid collection in the gallbladder fossa. Fluid collection was aspirated per IR yesterday, pending results. Surgery is following. Urology was consulted recommended keeping izaguirre. CXR on admission was negative for infiltrates, pending repeat. Continue to hold home HTN medication. cardiology following for bradycardia, recommend continue to hold metoprolol. Hypophosphatemia will be replaced, repeat in AM. Patient is currently tele hold on ICU. Case reviewed and discussed with Dr. Garay <Wilmer Garay S - Last Filed: 02/11/18 21:14> Objective - Vital Signs/Intake and Output Vital Signs (last 24 hours): Temp Pulse Resp BP Pulse Ox 101 F H 100 H 27 H 114/91 H 97 02/11/18 07:26 02/11/18 17:56 02/11/18 07:50 02/11/18 06:05 02/11/18 07:50 Intake and Output: 02/11/18 02/12/18 18:59 06:59 Intake Total 0 Output Total 2024 Balance -1015 - Medications Medications: Current Medications Atorvastatin Calcium (Lipitor) 40 mg PO DAILY [facility] Last Admin: 02/11/18 10:19 Dose: 40 mg Clopidogrel Bisulfate (Plavix) 75 mg PO DAILY [facility] Last Admin: 02/11/18 10:22 Dose: 75 mg Docusate Sodium (Colace) 100 mg PO TID [facility] Last Admin: 02/11/18 17:10 Dose: 100 mg Enoxaparin Sodium (Lovenox) 40 mg SC DAILY [facility]; Protocol Last Admin: 02/11/18 10:19 Dose: 40 mg Famotidine (Pepcid) 40 mg PO HS [facility] Last Admin: 02/10/18 21:18 Dose: 40 mg Meropenem (Merrem Iv 1 Gm Premix) 1 gm in 50 mls @ 12.5 mls/hr IVPB Q8 [facility]; Protocol Stop: 02/17/18 06:23 Last Admin: 02/11/18 13:24 Dose: 12.5 mls/hr Vancomycin HCl (Vancomycin 1gm) 1 gm in 250 mls @ 167 mls/hr IVPB Q12H [facility]; Protocol Last Admin: 02/11/18 17:14 Dose: 167 mls/hr Polyethylene Glycol (Miralax) 17 gm PO BID [facility] Last Admin: 02/11/18 17:10 Dose: 17 gm Potassium Phos/Sodium Phos (Neutra-Phos) 1 pkt PO TID [facility] Stop: 02/14/18 05:00 Tamsulosin HCl (Flomax) 0.4 mg PO DAILY [facility] Last Admin: 02/11/18 10:18 Dose: 0.4 mg Vitamin A (Vitamin A & D Oint Ud Foilpak) 1 ea TOP TID PRN PRN Reason: Dry mouth Last Admin: 02/11/18 13:26 Dose: 1 ea - Labs Labs: 02/11/18 05:40 02/11/18 05:40 PT 14.3 SECONDS (9.4-12.5) H 02/08/18 02:20 INR 1.24 02/08/18 02:20 APTT 31.0 Seconds (25.1-36.5) 02/08/18 02:20 Assessment and Plan - Assessment and Plan (Free Text) Assessment: Pt seen and examined. I have reviewed the note of the medical surgery nurse and agree with it. I have discussed the assessment and plan with the resident. I have reviewed the patient's labs and medications. Pt with sepsis and on IV Abx. She had a procedure and had fluid from the gallbladder fossa take our. She developed a fever this morning. I spoke to the and updated her about the pt's condition. Taper steroids. Bradycardia is stable.
--- NOTE | 2018-02-11 10:11 | RAD ---
Date of service: 02/11/2018 HISTORY: new wheezing COMPARISON: 02/08/2018 FINDINGS: LUNGS: Chronic interstitial changes. PLEURA: No significant pleural effusion identified, no pneumothorax apparent. CARDIOVASCULAR: No atherosclerotic calcification present Normal. OSSEOUS STRUCTURES: No significant abnormalities. VISUALIZED UPPER ABDOMEN: Normal. OTHER FINDINGS: There is a right IJ line at the cavoatrial junction. This is unchanged IMPRESSION: Chronic interstitial changes. No acute findings
[2018-02-11] MEDS: Enoxaparin 40 mg Syringe SC SCH (10:19)
[2018-02-11] MEDS: POLYETHYLENE GLYCOL 3350 17 GM/Dose PACKET PO SCH ×2 (10:20→17:10)
[2018-02-11] MEDS: Potassium & Sodium Phosphate PO SCH (10:21)
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
[2018-02-12] MEDS: Meropenem IV 1 gm in NS 1 GM/50 ML BAG IVPB SCH ×3 (05:35→21:47)
[2018-02-12] MEDS: Vancomycin 1gm in NS 250ml 1 GM/250 ML BAG IVPB SCH ×2 (07:44→17:57)
[2018-02-12 07:55] LABS: BASO # 0.01 K/mm3 (0.0-2.0); BASO % 0.1 % (0.0-3.0); EOS # 0.1 (0.0-0.7); EOS % 0.8 % (1.5-5.0); GRAN # 13.05 (1.4-6.5); GRAN % 77.4 % (50.0-68.0); HEMOGLOBIN 8.8 g/dL (14.0-18.0); LYMPH # 2.6 (1.2-3.4); LYMPH % 15.2 % (22.0-35.0); MEAN CELL VOLUME 90.6 fl (80.0-105.0); MEAN CORPUSCULAR HEMOGLOBIN 29.4 pg (25.0-35.0); MEAN CORPUSCULAR HGB CONC 32.5 g/dl (31.0-37.0); MEAN PLATELET VOLUME 10.8 fl (7.0-11.0); MONO # 1.1 (0.1-0.6); MONO % 6.5 % (1.0-6.0); RBC 2.99 10^6/uL (3.5-6.1); WHITE BLOOD COUNT 16.8 10^3/ul (4.5-11.0)
[2018-02-12 08:07] LABS: ALB/GLOB RATIO 0.8 (1.1-1.8); ALBUMIN 2.1 g/dL (3.0-4.8); ALT/SGPT 49 U/L (7-56); AST/SGOT 46 U/L (17-59); BLOOD UREA NITROGEN 15 mg/dL (7-21); CALCIUM 7.1 mg/dL (8.4-10.5); GFR NON-AFRICAN AMERICAN > 60
[2018-02-12] MEDS: Potassium & Sodium Phosphate PO SCH ×4 (10:06→17:50)
[2018-02-12] MEDS: POLYETHYLENE GLYCOL 3350 17 GM/Dose PACKET PO SCH ×2 (10:06→17:50)
[2018-02-12] MEDS: Enoxaparin 40 mg Syringe SC SCH (10:06)
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
[2018-02-13] MEDS: Meropenem IV 1 gm in NS 1 GM/50 ML BAG IVPB SCH ×3 (06:41→21:14)
[2018-02-13] MEDS: Vancomycin 1gm in NS 250ml 1 GM/250 ML BAG IVPB SCH ×2 (06:41→17:58)
[2018-02-13 07:22] LABS: BASO # 0.02 K/mm3 (0.0-2.0); BASO % 0.2 % (0.0-3.0); EOS # 0.4 (0.0-0.7); EOS % 3.5 % (1.5-5.0); GRAN # 8.08 (1.4-6.5); GRAN % 73.6 % (50.0-68.0); HEMOGLOBIN 9.9 g/dL (14.0-18.0); LYMPH # 1.8 (1.2-3.4); LYMPH % 16.3 % (22.0-35.0); MEAN CELL VOLUME 90.3 fl (80.0-105.0); MEAN CORPUSCULAR HEMOGLOBIN 29.2 pg (25.0-35.0); MEAN CORPUSCULAR HGB CONC 32.4 g/dl (31.0-37.0); MEAN PLATELET VOLUME 10.4 fl (7.0-11.0); MONO # 0.7 (0.1-0.6); MONO % 6.4 % (1.0-6.0); RBC 3.39 10^6/uL (3.5-6.1); RED CELL DISTRIBUTION WIDTH 15.1 % (11.5-14.5)
[2018-02-13 07:38] LABS: ALB/GLOB RATIO 0.8 (1.1-1.8); ALBUMIN 2.3 g/dL (3.0-4.8); ALT/SGPT 55 U/L (7-56); AST/SGOT 47 U/L (17-59); BLOOD UREA NITROGEN 13 mg/dL (7-21); CALCIUM 7.4 mg/dL (8.4-10.5); GFR NON-AFRICAN AMERICAN > 60
[2018-02-13] MEDS: Enoxaparin 40 mg Syringe SC SCH (10:21)
[2018-02-13] MEDS: Potassium & Sodium Phosphate PO SCH ×3 (10:21→17:58)
[2018-02-13] MEDS: POLYETHYLENE GLYCOL 3350 17 GM/Dose PACKET PO SCH ×2 (10:21→17:59)
--- NOTE | 2018-02-13 13:36 | PN ---
DATE: 02/13/2018 SUBJECTIVE: He is comfortable in bed in no acute distress. He has Sarmiento catheter draining clear urine. No fevers overnight. No event. No cough with expectoration. No shortness of breath. MEDICATIONS: Lipitor 40 mg daily, Plavix 75 mg daily, Colace 100 mg p.o. t.i.d., Lovenox 40 mg subcu daily, Pepcid 40 mg at bedtime, meropenem, MiraLax, vancomycin IV and multivitamin. LABORATORY DATA: White count 11,000, hemoglobin 9.9, hematocrit 30.6, platelets 348. Sodium 136, potassium 4.4, creatinine 0.6, total protein 5.1. PHYSICAL EXAMINATION: GENERAL: Comfortable in bed, in no acute distress. VITAL SIGNS: Temperature 97.1, heart rate is 80 per minute, blood pressure 118/72, respiratory rate 20 per minute, oxygen saturation 87% on room air. HEENT: Pallor positive. NECK: No lymphadenopathy. CHEST: Air entry present and equal, bilateral. No added sounds. CARDIOVASCULAR: S1, S2 normal. No murmur. No gallop. ABDOMEN: Soft, nontender. No hepatosplenomegaly. EXTREMITIES: No edema. Sarmiento catheter draining clear urine. ASSESSMENT AND PLAN: 1. Septic shock. Extended-spectrum beta-lactamase positive in the urine. Repeat blood cultures are negative. Currently on meropenem and vancomycin. Dr. Floyd following. 2. Hyponatremia resolved. 3. Anemia, leukocytosis, hemoglobin stable at 9.9. Continue to monitor. Paraplegia status post fall. Sarmiento catheter with blood obstruction draining clear urine. Daughter and at bedside. They have questions regarding removal of Sarmiento catheter. I told them I will defer the decision to Dr. Turner and Dr. Garay. He is still currently on IV antibiotic. Deep vein thrombosis prophylaxis with Lovenox 30 mg subcu daily to continue. Electrolytes normal. Potassium normal. I answered all the questions to daughter and at bedside. Megan Gomes MD
--- NOTE | 2018-02-13 14:31 | PN ---
DATE: 02/13/2018 SUBJECTIVE: The patient is seen lying in the telemetry. He is currently comfortable. He is afebrile. He denies any chest pain or dyspnea. CURRENT MEDICATIONS: Include Flomax, Lipitor, Lovenox, meropenem, MiraLax, Neutra-Phos, Pepcid, Plavix, and vancomycin. OBJECTIVE: GENERAL: He is an elderly man who appears comfortable at rest. VITAL SIGNS: His blood pressure is 118/62, the pulse of 70 and sinus, respirations are 16. He is afebrile. HEENT: No JVD. CHEST: Few scattered rhonchi. HEART: PMI displaced laterally with a mid peaking systolic murmur at the base. ABDOMEN: Soft, nontender, normoactive bowel sounds. EXTREMITIES: No edema. DIAGNOSTIC DATA: Potassium 4.4. BUN and creatinine 13 and 0.6. White count of 11, hemoglobin and hematocrit 9.9 and 30.6, and platelet count 348,000. IMPRESSION: 1. Recent urosepsis. 2. Recent ascending cholangitis, status post cholecystectomy. 3. Moderate aortic stenosis. 4. Mild coronary artery disease. 5. History of hypertension. 6. Paraplegia. RECOMMENDATIONS: Ccurrent management should continue at the present time. He expressed concern about removal of his Sarmiento catheter and has concerns about the potential for urinary retention. From a cardiac standpoint, continue conservative management as planned. We will continue to follow and make further recommendations as appropriate. David Ansari MD
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
[2018-02-14] MEDS: Meropenem IV 1 gm in NS 1 GM/50 ML BAG IVPB SCH ×2 (05:32→14:38)
[2018-02-14] MEDS: Vancomycin 1gm in NS 250ml 1 GM/250 ML BAG IVPB SCH (05:32)
[2018-02-14 06:38] LABS: BASO # 0.06 K/mm3 (0.0-2.0); BASO % 0.6 % (0.0-3.0); EOS # 0.6 (0.0-0.7); EOS % 6.1 % (1.5-5.0); GRAN # 6.28 (1.4-6.5); GRAN % 61.6 % (50.0-68.0); HEMOGLOBIN 10.7 g/dL (14.0-18.0); LYMPH # 2.4 (1.2-3.4); LYMPH % 23.9 % (22.0-35.0); MEAN CELL VOLUME 89.7 fl (80.0-105.0); MEAN CORPUSCULAR HEMOGLOBIN 29.1 pg (25.0-35.0); MEAN CORPUSCULAR HGB CONC 32.4 g/dl (31.0-37.0); MEAN PLATELET VOLUME 10.6 fl (7.0-11.0); MONO # 0.8 (0.1-0.6); MONO % 7.8 % (1.0-6.0); RBC 3.68 10^6/uL (3.5-6.1); RED CELL DISTRIBUTION WIDTH 15.1 % (11.5-14.5); WHITE BLOOD COUNT 10.2 10^3/ul (4.5-11.0)
[2018-02-14 06:46] LABS: ALB/GLOB RATIO 0.8 (1.1-1.8); ALBUMIN 2.5 g/dL (3.0-4.8); ALT/SGPT 54 U/L (7-56); AST/SGOT 55 U/L (17-59); BLOOD UREA NITROGEN 14 mg/dL (7-21); CALCIUM 8.1 mg/dL (8.4-10.5); GFR NON-AFRICAN AMERICAN > 60
--- NOTE | 2018-02-14 08:23 | CP.PCM.PN ---
Subjective - Date & Time of Evaluation Date of Evaluation: 02/14/18 Time of Evaluation: 07:00 - Subjective Subjective: Stable on 2R. He feels OK. No CP or SOB. V/S noted. RSR PE: Lungs: rhonchi Cor: S1S2 DARRIN Abd.: soft Ext.: no edema Neuro.: alert I/O= [id number]/[id number] recorded Labs: CMP, CBC OK 02/11 BC X2 NG at 3 days Urine: + Klebs pneum. RUQ fluid collection: NG at 2 days Objective - Vital Signs/Intake and Output Vital Signs (last 24 hours): Temp Pulse Resp BP Pulse Ox 97.1 F L 77 21 118/72 97 02/13/18 12:08 02/14/18 06:00 02/13/18 12:08 02/13/18 12:08 02/11/18 07:50 Intake and Output: 02/14/18 02/14/18 06:59 18:59 Intake Total 1270 Output Total 4100 Balance -2830 - Medications Medications: Current Medications Atorvastatin Calcium (Lipitor) 40 mg PO DAILY [facility] Last Admin: 02/13/18 10:21 Dose: 40 mg Clopidogrel Bisulfate (Plavix) 75 mg PO DAILY [facility] Last Admin: 02/13/18 10:21 Dose: 75 mg Docusate Sodium (Colace) 100 mg PO TID [facility] Last Admin: 02/13/18 17:58 Dose: 100 mg Enoxaparin Sodium (Lovenox) 40 mg SC DAILY [facility]; Protocol Last Admin: 02/13/18 10:21 Dose: 40 mg Famotidine (Pepcid) 40 mg PO HS [facility] Last Admin: 02/13/18 21:15 Dose: 40 mg Meropenem (Merrem Iv 1 Gm Premix) 1 gm in 50 mls @ 12.5 mls/hr IVPB Q8 [facility]; Protocol Stop: 02/17/18 06:23 Last Admin: 02/14/18 05:32 Dose: 12.5 mls/hr Polyethylene Glycol (Miralax) 17 gm PO BID [facility] Last Admin: 02/13/18 17:59 Dose: 17 gm Tamsulosin HCl (Flomax) 0.4 mg PO DAILY [facility] Last Admin: 02/13/18 10:22 Dose: 0.4 mg Vitamin A (Vitamin A & D Oint Ud Foilpak) 1 ea TOP TID PRN PRN Reason: Dry mouth Last Admin: 02/11/18 13:26 Dose: 1 ea - Labs Labs: 02/14/18 05:50 02/14/18 05:50 PT 14.3 SECONDS (9.4-12.5) H 02/08/18 02:20 INR 1.24 02/08/18 02:20 APTT 31.0 Seconds (25.1-36.5) 02/08/18 02:20 Assessment and Plan - Assessment and Plan (Free Text) Assessment: Urosepsis with recur. fever this AM S/P GB fossa cyst tap S/P ascending cholangitis with GB drainage 12/11, with recent cholecystectomy 01/27. HBP HLD , moderate CAD, mild Paraplegia after remote fall, wheelchair bound H/O back surgery with hardware in place H/O prostate surgery Plan: As per ROSMERY, Dr. Garay, Surgery. As per Dr. Turner: Sarmiento catheter mgt. Resume metoprolol. Monitor: I/O, labs, cultures, sats., etc OOB as janina. Will follow.
[2018-02-14] MEDS ORDERED: Metoprolol Succinate 25 mg XL Tab PO SCH (10:00)
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
[2018-02-14] MEDS: Enoxaparin 40 mg Syringe SC SCH (11:04)
[2018-02-14] MEDS: POLYETHYLENE GLYCOL 3350 17 GM/Dose PACKET PO SCH (11:04)
[2018-02-14 12:05] VITALS: BP 100/66; PULSE 94; RESP 19; TEMP 98.4
--- NOTE | 2018-02-14 12:25 | PN ---
DATE: 02/14/2018 SUBJECTIVE: Bertrand Almendarez is seen on Wednesday. His abdomen is soft and nontender. His liver functions are relatively unremarkable with slightly elevation of alk phos. The fluid removed from the abdomen by percutaneous drainage was serous and is currently not growing anything either. I believe this is a benign appearance. I think his postop course outside of the urine is satisfactory. Discussions are being made with Dr. Turner about removing the . This was delayed because he had a spike in the temperature on Wednesday. We will discuss. Kong Campos MD
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
== END 2018-02-14 17:03 | DRG 698 ==
LOC: ED 02:02 → ERH 05:18 → CCU 08:06 → 2RNO 02-11 19:07
PROVIDERS: ADMIT Internal Medicine Nephrology; ATTEND Internal Medicine Nephrology
PROC: 05HM33Z Insertion of Infusion Device into Right Internal Jugular Vein, Percutaneous Approach (ICD-10-PCS; principal; 2018-02-08)
PROC: 0W9G3ZX Drainage of Peritoneal Cavity, Percutaneous Approach, Diagnostic (ICD-10-PCS; 2018-02-10)
DX: T83.511A Infection and inflammatory reaction due to indwelling urethral catheter, initial encounter (principal); A41.50 Gram-negative sepsis, unspecified; R65.21 Severe sepsis with septic shock; G82.20 Paraplegia, unspecified; E87.1 Hypo-osmolality and hyponatremia; N30.90 Cystitis, unspecified without hematuria; R00.1 Bradycardia, unspecified; I25.10 Atherosclerotic heart disease of native coronary artery without angina pectoris; I10 Essential (primary) hypertension; N40.1 Benign prostatic hyperplasia with lower urinary tract symptoms; N32.0 Bladder-neck obstruction; R33.8 Other retention of urine; I35.0 Nonrheumatic aortic (valve) stenosis; E78.5 Hyperlipidemia, unspecified; R26.81 Unsteadiness on feet; K59.00 Constipation, unspecified; E83.39 Other disorders of phosphorus metabolism; D64.9 Anemia, unspecified; V89.2XXS Person injured in unspecified motor-vehicle accident, traffic, sequela; Z79.02 Long term (current) use of antithrombotics/antiplatelets; Z99.3 Dependence on wheelchair; Z95.5 Presence of coronary angioplasty implant and graft; Z90.49 Acquired absence of other specified parts of digestive tract

== ENCOUNTER 2018-02-14 17:09 | Inpatient (IN) | payer OTHER, BC ==
[2018-02-14] MEDS ORDERED: Vitamins A & D Oint UD Foilpak TOP PRN (17:16)
[2018-02-14 18:54] VITALS: BMI 24.2
[2018-02-14] MEDS: POLYETHYLENE GLYCOL 3350 17 GM/Dose PACKET PO SCH (18:56)
[2018-02-14] MEDS: Meropenem IV 1 gm in NS 1 GM/50 ML BAG IVPB SCH (21:12)
[2018-02-15] MEDS: Meropenem IV 1 gm in NS 1 GM/50 ML BAG IVPB SCH ×3 (05:58→21:29)
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
[2018-02-15] MEDS: Metoprolol Succinate 25 mg XL Tab PO SCH (08:02)
[2018-02-15] MEDS: POLYETHYLENE GLYCOL 3350 17 GM/Dose PACKET PO SCH ×2 (09:36→17:34)
[2018-02-15] MEDS: Enoxaparin 40 mg Syringe SC SCH (09:36)
[2018-02-16] MEDS: Meropenem IV 1 gm in NS 1 GM/50 ML BAG IVPB SCH ×3 (05:37→21:19)
[2018-02-16] MEDS: Metoprolol Succinate 25 mg XL Tab PO SCH (07:54)
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
[2018-02-16] MEDS: POLYETHYLENE GLYCOL 3350 17 GM/Dose PACKET PO SCH (10:30)
[2018-02-16] MEDS: Enoxaparin 40 mg Syringe SC SCH (10:53)
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
[2018-02-17] MEDS: Meropenem IV 1 gm in NS 1 GM/50 ML BAG IVPB SCH ×3 (05:58→21:03)
--- NOTE | 2018-02-17 08:15 | PN ---
DATE: 02/16/2018 This is an addendum to the progress note written by resident. The patient was seen and examined in gym. The patient complained of diarrhea, otherwise he is getting better and stronger with history of hypertension, coronary artery disease, status post angioplasty, status post cholecystectomy. Initially, he was admitted because of septic shock secondary to Klebsiella UTI. The patient is receiving physical therapy. He complained of diarrhea. We will hold off his Colace and MiraLax. Continue on meropenem. Continue on Plavix, beta-miguelito, and DVT prophylaxis. Héctor Woodard MD
[2018-02-17] MEDS: Metoprolol Succinate 25 mg XL Tab PO SCH (08:23)
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
[2018-02-17] MEDS: Enoxaparin 40 mg Syringe SC SCH (11:28)
[2018-02-18] MEDS: Enoxaparin 40 mg Syringe SC SCH (05:54)
[2018-02-18] MEDS: Meropenem IV 1 gm in NS 1 GM/50 ML BAG IVPB SCH ×3 (05:54→21:10)
[2018-02-18] MEDS: Metoprolol Succinate 25 mg XL Tab PO SCH (09:33)
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
[2018-02-19] MEDS: Meropenem IV 1 gm in NS 1 GM/50 ML BAG IVPB SCH ×3 (05:55→21:09)
[2018-02-19] MEDS: Enoxaparin 40 mg Syringe SC SCH (05:56)
[2018-02-19 06:27] VITALS: O2SAT 96
[2018-02-19] MEDS: Metoprolol Succinate 25 mg XL Tab PO SCH (07:46)
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
[2018-02-20] MEDS: Enoxaparin 40 mg Syringe SC SCH (05:46)
[2018-02-20] MEDS: Meropenem IV 1 gm in NS 1 GM/50 ML BAG IVPB SCH ×3 (05:46→21:15)
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
[2018-02-20] MEDS: Metoprolol Succinate 25 mg XL Tab PO SCH (10:43)
[2018-02-20 20:25] VITALS: RESP 16; TEMP 97.8
[2018-02-21] MEDS: Meropenem IV 1 gm in NS 1 GM/50 ML BAG IVPB SCH ×2 (05:31→13:33)
[2018-02-21] MEDS: Enoxaparin 40 mg Syringe SC SCH (05:31)
[2018-02-21] MEDS: Metoprolol Succinate 25 mg XL Tab PO SCH (08:44)
[2018-02-21 08:46] VITALS: BP 110/63; PULSE 83
--- NOTE | 2018-02-21 09:01 | PN ---
DATE: 02/21/2018 SUBJECTIVE: The patient is in bed, in no acute distress. PHYSICAL EXAMINATION: VITAL SIGNS: On exam, temperature is 98, blood pressure is 120/60, respiratory rate of 16. HEENT: Examination of HEENT is unremarkable. NECK: Supple. LUNGS: Have decreased breath sounds. HEART: Normal S1 and S2. ABDOMEN: Soft. LABORATORY DATA: Laboratory examinations were reviewed. ASSESSMENT AND PLAN: An 82-year-old who was admitted initially on this admission with septic shock, Klebsiella in the urine. Today is day #14. Would complete 14 days of antibiotics. Ramses Floyd MD
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
[2018-02-21] MEDS ORDERED: Influenza Vaccine 60 mcg/0.5 mL SYR (4YR UP) IM ONE (13:42)
[2018-02-21] MEDS ORDERED: Pneumococcal 23-Valent Vaccine IM ONE (13:43)
== END 2018-02-21 16:02 | disposition home or self-care (01) | DRG 871 ==
LOC: TRCU 17:09
PROVIDERS: ADMIT Internal Medicine Nephrology; ATTEND Internal Medicine Nephrology
PROC: F07Z9FZ Gait Training/Functional Ambulation Treatment using Assistive, Adaptive, Supportive or Protective Equipment (ICD-10-PCS; principal; 2018-02-15)
PROC: F08Z4FZ Home Management Treatment using Assistive, Adaptive, Supportive or Protective Equipment (ICD-10-PCS; 2018-02-15)
PROC: 3E02340 Introduction of Influenza Vaccine into Muscle, Percutaneous Approach (ICD-10-PCS; 2018-02-21)
PROC: 3E0234Z Introduction of Serum, Toxoid and Vaccine into Muscle, Percutaneous Approach (ICD-10-PCS; 2018-02-21)
DX: A41.59 Other Gram-negative sepsis (principal); R65.21 Severe sepsis with septic shock; N39.0 Urinary tract infection, site not specified; G82.20 Paraplegia, unspecified; Z79.2 Long term (current) use of antibiotics; I25.10 Atherosclerotic heart disease of native coronary artery without angina pectoris; E78.5 Hyperlipidemia, unspecified; I10 Essential (primary) hypertension; V89.2XXS Person injured in unspecified motor-vehicle accident, traffic, sequela; Z95.5 Presence of coronary angioplasty implant and graft; Z23 Encounter for immunization; Z90.49 Acquired absence of other specified parts of digestive tract

== ENCOUNTER 2018-03-04 10:07 | Inpatient (IN) | payer MEDICARE, BC ==
[2018-03-04] MEDS: Sodium Chloride 0.9% 1,000 ML IV SCH ×3 (10:49→22:59)
[2018-03-04 10:59] LABS: BASO # 0.02 K/mm3 (0.0-2.0); BASO % 0.1 % (0.0-3.0); EOS % 0.3 % (1.5-5.0); GRAN # 12.07 (1.4-6.5); GRAN % 80.7 % (50.0-68.0); HEMOGLOBIN 10.3 g/dL (14.0-18.0); LYMPH # 1.1 (1.2-3.4); MEAN CELL VOLUME 88.5 fl (80.0-105.0); MEAN CORPUSCULAR HEMOGLOBIN 28.9 pg (25.0-35.0); MEAN CORPUSCULAR HGB CONC 32.7 g/dl (31.0-37.0); MONO # 1.8 (0.1-0.6); MONO % 11.9 % (1.0-6.0); RBC 3.56 10^6/uL (3.5-6.1); RED CELL DISTRIBUTION WIDTH 15.1 % (11.5-14.5)
[2018-03-04 11:04] LABS: INR 1.08; PARTIAL THROMBOPLASTIN TIME 29.5 Seconds (25.1-36.5); PROTHROMBIN TIME 12.4 SECONDS (9.4-12.5)
[2018-03-04 11:08] LABS: VENOUS BLOOD GAS BASE EXCESS 0.1 mmol/L (0.0-2.0); VENOUS BLOOD GAS PO2 45 mm/Hg (30-55); VENOUS BLOOD PH 7.41 (7.32-7.43)
[2018-03-04 11:09] LABS: ALB/GLOB RATIO 0.9 (1.1-1.8); ALBUMIN 3.5 g/dL (3.0-4.8); ALT/SGPT 32 U/L (7-56); AST/SGOT 40 U/L (17-59); BLOOD UREA NITROGEN 18 mg/dL (7-21); GFR NON-AFRICAN AMERICAN > 60
[2018-03-04] MEDS ORDERED: Piperacill/Tazo 4.5gm in NS 4.5 GM/100 ML BAG IVPB STA (11:13)
[2018-03-04] MEDS ORDERED: Vancomycin 1gm in NS 250ml 1 GM/250 ML BAG IVPB STA ×3 (11:14→21:38)
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
[2018-03-04] MEDS ORDERED: Sodium Chloride 0.9% 1,000 ML IV STA ×2 (11:36→13:13)
--- NOTE | 2018-03-04 11:48 | RAD ---
Date of service: 03/04/2018 HISTORY: Sepsis Patient COMPARISON: 02/11/2018. FINDINGS: LUNGS: No active pulmonary disease. PLEURA: No significant pleural effusion identified, no pneumothorax apparent. CARDIOVASCULAR: No radiographic findings to suggest acute or significant cardiovascular disease. Atherosclerotic calcifications identified primarily aortic arch. Removal of support apparatus since the prior study: Right IJ catheter. OSSEOUS STRUCTURES: No significant abnormalities. Stable appearance, position of [place] rods. VISUALIZED UPPER ABDOMEN: Normal. OTHER FINDINGS: None. IMPRESSION: No active disease. No significant interval change compared to the prior examination(s). Additional benign and/or incidental findings described above.
[2018-03-04 12:18] LABS: URINE BILIRUBIN NEGATIVE (NEGATIVE); URINE BLOOD TRACE-INTACT (NEGATIVE); URINE GLUCOSE (UA) NEGATIVE (NEGATIVE); URINE LEUKOCYTE ESTERASE LARGE Leu/uL (NEGATIVE); URINE PROTEIN TRACE mg/dL (<30 mg/dL); URINE UROBILINOGEN 0.2 E.U./dL (<1 E.U./dL)
[2018-03-04 12:19] LABS: URINE APPEARANCE SL CLOUDY (CLEAR); URINE COLOR LIGHT YELLOW (YELLOW)
[2018-03-04 12:27] LABS: URINE BACTERIA LARGE (NEG); URINE WBC TNTC /hpf (0-6)
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
[2018-03-04] MEDS ORDERED: Sodium Chloride 0.9% 250 ML IV STA (13:08)
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
[2018-03-04] MEDS ORDERED: MEROPENEM 500 MG in NS 500 MG/50 ML BAG IVPB SCH (14:00)
[2018-03-04 14:26] LABS: VENOUS BLOOD GAS BASE EXCESS -1.5 mmol/L (0.0-2.0); VENOUS BLOOD GAS PO2 51 mm/Hg (30-55); VENOUS BLOOD PH 7.37 (7.32-7.43)
[2018-03-04] MEDS: Meropenem IV 1 gm in NS 1 GM/50 ML BAG IVPB SCH ×2 (14:53→22:07)
[2018-03-04] MEDS: Vancomycin 25 MG/ML PO SCH ×3 (14:55→22:07)
[2018-03-04] MEDS: Vancomycin 1gm in NS 250ml 1 GM/250 ML BAG IVPB SCH (14:57)
--- NOTE | 2018-03-04 15:29 | CARD ---
APPROVED REPORT Date of service: 03/04/2018 EKG Measurement Heart [id number] <Conclusion> Normal sinus rhythm with sinus arrhythmia Right bundle branch block Left anterior fascicular block Bifascicular block Septal infarct, age undetermined Abnormal ECG
[2018-03-04 15:50] VITALS: BMI 23.6
[2018-03-04] MEDS ORDERED: Influenza Vaccine 60 mcg/0.5 mL SYR (4YR UP) IM ONE (15:50)
[2018-03-04] MEDS ORDERED: Pneumococcal 23-Valent Vaccine IM ONE (15:50)
--- NOTE | 2018-03-04 16:25 | PCM.SEPTIC ---
Sepsis Progress Note - Reassessment Type Date of Evaluation: 03/04/18 Time of Evaluation: 16:00 Reassessment Type: Non-invasive reassessment - Non Invasive Reassessment Were the most recent vital sign reviewed: Yes Vital Sign (Latest): Temp Pulse Resp BP Pulse Ox 98.6 F 73 12 97/54 L 96 03/04/18 15:34 03/04/18 15:34 03/04/18 15:34 03/04/18 15:34 03/04/18 12:27 Cardiovascular: Yes: Regular Rate, Rhythm Respiratory: Yes: Normal Breath Sounds. No: Accessory Muscle Use, Respiratory Distress Capillary Refill: Normal (Less than 2 sec) Pulses: Normal Radial Skin: Normal Color
--- NOTE | 2018-03-04 17:35 | PN ---
DATE: 03/04/2018 SUBJECTIVE: The patient is well known to me. He is back in the emergency room with reported fever and chills. Temperature was 100.1, which is now down to 98.6, pulse 91. He is somewhat hypotensive, BP 97/54. The patient was recently seen in my office. He has had recurrent episodes of sepsis after a cholecystectomy. The patient has a Taxus cath in place and when I checked in the other day, he appeared to be emptying adequately however. The patient is a paraplegic, and he does not void normally. He voids mostly by Coude and creating pressure in order to void. He had a prostate laser vaporization months ago and had been doing well until readmission for the cholecystitis. It is unclear whether he is truly voiding well, as he has been offered intermittent catheterization, which he refuses to do. He did not have a large pre-void volume, and the patient has a very large bladder capacity. In the past when he did have urinary obstruction, he had obstructive uropathy with an elevated creatinine. Currently, his creatinine is 0.6 and GFR greater than 60. I have scheduled him for a followup renal ultrasound to make sure that his hydronephrosis has not recurred. However, the patient now windup in the hospital. Neurologically, at this time, my recommendation would be to place an indwelling Sarmiento catheter and leave it to straight drainage. Treat any infection with fluids and antibiotics. The patient's alkaline phosphatase is elevated at 203, and I would recommend General Surgery evaluation as he had a recent biliary procedure done. The patient should be pancultured to look for a source of infection and treat it appropriately. I will continue to follow the patient with you while he is hospitalized, but again, I would not remove the Sarmiento catheter at this time until we are sure about the source of his sepsis, and we will need to come up with a plan regarding recurrent infections. Tavon Turner MD
[2018-03-04 21:34] LABS: VENOUS BLOOD GAS BASE EXCESS -0.2 mmol/L (0.0-2.0); VENOUS BLOOD GAS PO2 235 mm/Hg (30-55); VENOUS BLOOD PH 7.49 (7.32-7.43)
[2018-03-05] MEDS: Vancomycin 1gm in NS 250ml 1 GM/250 ML BAG IVPB SCH ×2 (02:03→16:11)
[2018-03-05] MEDS: Meropenem IV 1 gm in NS 1 GM/50 ML BAG IVPB SCH ×3 (05:18→21:39)
[2018-03-05] MEDS: Sodium Chloride 0.9% 1,000 ML IV SCH ×3 (06:00→18:15)
[2018-03-05 06:51] LABS: BASO # 0.02 K/mm3 (0.0-2.0); BASO % 0.2 % (0.0-3.0); EOS # 0.3 (0.0-0.7); EOS % 1.9 % (1.5-5.0); GRAN # 9.83 (1.4-6.5); GRAN % 74.8 % (50.0-68.0); LYMPH # 1.8 (1.2-3.4); LYMPH % 13.3 % (22.0-35.0); MEAN CELL VOLUME 88.5 fl (80.0-105.0); MEAN CORPUSCULAR HEMOGLOBIN 28.8 pg (25.0-35.0); MEAN CORPUSCULAR HGB CONC 32.6 g/dl (31.0-37.0); MEAN PLATELET VOLUME 10.3 fl (7.0-11.0); MONO # 1.3 (0.1-0.6); MONO % 9.8 % (1.0-6.0); RBC 3.12 10^6/uL (3.5-6.1); RED CELL DISTRIBUTION WIDTH 15.4 % (11.5-14.5); WHITE BLOOD COUNT 13.1 10^3/uL (4.5-11.0)
[2018-03-05 07:34] LABS: ALB/GLOB RATIO 0.8 (1.1-1.8); ALBUMIN 2.4 g/dL (3.0-4.8); ALT/SGPT 29 U/L (7-56); AST/SGOT 25 U/L (17-59); BLOOD UREA NITROGEN 15 mg/dL (7-21); CALCIUM 7.5 mg/dL (8.4-10.5); GFR NON-AFRICAN AMERICAN > 60
[2018-03-05] MEDS ORDERED: Potassium Chloride 20 mEq ER Tab PO ONE (08:29)
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
[2018-03-05] MEDS: Enoxaparin 40 mg Syringe SC SCH (09:45)
[2018-03-05] MEDS: Metoprolol Succinate 25 mg XL Tab PO SCH (09:53)
[2018-03-05] MEDS: Lactobacillus Acidophilus 500 MU Cap PO SCH (09:54)
[2018-03-05] MEDS ORDERED: Sodium Chloride 0.9% 500 ML IV STA (10:30)
[2018-03-05] MEDS ORDERED: Sodium Chloride 0.9% 1,000 ML IV SCH (10:30)
[2018-03-05] MEDS: Vancomycin 25 MG/ML PO SCH ×4 (10:43→21:40)
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
--- NOTE | 2018-03-05 15:28 | US ---
Date of service: 03/05/2018 HISTORY: rule out CBD stone COMPARISON: None. TECHNIQUE: Sonographic evaluation of the abdomen. FINDINGS: LIVER: Measures 14.9 cm. There is diffuse increased echogenicity of the liver parenchyma. No mass. No intrahepatic bile duct dilatation. GALLBLADDER: Surgically absent COMMON BILE DUCT: Measures 6.6 mm. No stones. Mild dilatation. PANCREAS: Unremarkable as visualized. No mass. No ductal dilatation. RIGHT KIDNEY: Measures 10.2cm. Normal echogenicity. No calculus, mass, or hydronephrosis. LEFT KIDNEY: Measures 11.5cm. Normal echogenicity. No calculus, mass, or hydronephrosis. SPLEEN: Normal in size and contour. No mass. AORTA: No aneurysmal dilatation. IVC: Unremarkable. OTHER FINDINGS: None. IMPRESSION: Diffuse increased echogenicity in the liver may reflect hepatic steatosis however parenchymal infectious/ inflammatory etiologies cannot be entirely excluded. Clinical and laboratory correlation is advised. Status post cholecystectomy. Mild diffuse dilatation of the common bile duct is likely in keeping with postcholecystectomy status.
[2018-03-06] MEDS: Vancomycin 1gm in NS 250ml 1 GM/250 ML BAG IVPB SCH ×2 (02:30→14:20)
[2018-03-06] MEDS: Sodium Chloride 0.9% 1,000 ML IV SCH (05:38)
[2018-03-06] MEDS: Meropenem IV 1 gm in NS 1 GM/50 ML BAG IVPB SCH ×3 (05:40→22:26)
[2018-03-06 06:17] VITALS: O2SAT 95
[2018-03-06] MEDS: Enoxaparin 40 mg Syringe SC SCH (09:20)
[2018-03-06] MEDS: Vancomycin 25 MG/ML PO SCH ×4 (09:20→22:27)
[2018-03-06] MEDS: Lactobacillus Acidophilus 500 MU Cap PO SCH (09:21)
[2018-03-06] MEDS: Metoprolol Succinate 25 mg XL Tab PO SCH (09:21)
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
--- NOTE | 2018-03-06 13:36 | PN ---
DATE: 03/06/2018 SUBJECTIVE: The patient has no complaints of any chest pain. No shortness of breath. No headaches or dizziness. He says he is feeling better. PHYSICAL EXAMINATION: VITAL SIGNS: Temperature is 98.8, pulse of 83, blood pressure is 125/74, respirations 20. GENERAL: The patient is lying in bed, flat, comfortable. HEENT: No oral lesion. Anicteric sclerae. Moist mucosa. NECK: No JVD, adenopathy, or thyromegaly. CARDIOVASCULAR: S1 and S2, regular. No murmurs, rubs, or gallops. LUNGS: Clear to auscultation bilaterally. No wheeze, rales, or rhonchi. ABDOMEN: Bowel sounds are positive, soft, nontender and nondistended. EXTREMITIES: no cyanosis, clubbing or edema. LABORATORY DATA: White count of . Abdominal ultrasound shows diffuse increased echogenicity of the liver, may reflect hepatosteatosis, however, chronic infection or inflammation cannot be excluded. Kidneys showed normal echogenicity. There is urine culture positive for Klebsiella. ASSESSMENT: 1. Urinary tract infection secondary to Klebsiella. 2. Hypertension, improved. 3. Sepsis. 4. Coronary artery disease. 5. Dyslipidemia. 6. Paraplegia. PLAN: The patient is currently on meropenem for antibiotics. He is continuing on Flomax for his BPH. He is on IV fluids. I will decrease his IV fluids at this point. His blood pressure is much better than yesterday. He is being followed by Infectious Disease. The patient is on IV vancomycin. He is on a heart-healthy diet. We will continue to follow patient's at the bedside to give her an update on patient's diagnosis and plan of care. Wilmer Garay MD
[2018-03-07] MEDS: Vancomycin 1gm in NS 250ml 1 GM/250 ML BAG IVPB SCH (02:06)
[2018-03-07] MEDS: Meropenem IV 1 gm in NS 1 GM/50 ML BAG IVPB SCH ×2 (05:08→14:31)
[2018-03-07 07:00] LABS: HEMOGLOBIN 9.3 g/dL (14.0-18.0); MEAN CELL VOLUME 88.7 fl (80.0-105.0); MEAN CORPUSCULAR HEMOGLOBIN 28.5 pg (25.0-35.0); MEAN CORPUSCULAR HGB CONC 32.2 g/dl (31.0-37.0); MEAN PLATELET VOLUME 10.6 fl (7.0-11.0); RBC 3.26 10^6/uL (3.5-6.1); RED CELL DISTRIBUTION WIDTH 15.2 % (11.5-14.5); WHITE BLOOD COUNT 10.6 10^3/uL (4.5-11.0)
[2018-03-07 07:54] LABS: ALB/GLOB RATIO 0.7 (1.1-1.8); ALBUMIN 2.4 g/dL (3.0-4.8); ALT/SGPT 42 U/L (7-56); AST/SGOT 40 U/L (17-59); BLOOD UREA NITROGEN 14 mg/dL (7-21); CALCIUM 7.9 mg/dL (8.4-10.5); GFR NON-AFRICAN AMERICAN > 60
[2018-03-07 10:26] LABS: IRON 29 ug/dL (45-180)
[2018-03-07 10:35] LABS: % IRON SATURATION 14 % (20-55); TOTAL IRON BINDING CAPACITY 206 ug/dL (261-462)
[2018-03-07] MEDS: Enoxaparin 40 mg Syringe SC SCH (10:48)
[2018-03-07] MEDS: Lactobacillus Acidophilus 500 MU Cap PO SCH (10:48)
[2018-03-07] MEDS: Metoprolol Succinate 25 mg XL Tab PO SCH (10:48)
[2018-03-07] MEDS: Vancomycin 25 MG/ML PO SCH ×3 (11:01→17:51)
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
[2018-03-07 17:06] LABS: FOLATE 8.1 ng/mL
[2018-03-07 18:07] VITALS: BP 114/67; PULSE 68; RESP 20; TEMP 98.4
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
== END 2018-03-07 20:30 | disposition home health service (06) | DRG 872 ==
LOC: ED 10:07 → ERH 12:01 → 2RNO 21:45
PROVIDERS: ADMIT Internal Medicine Nephrology; ATTEND Internal Medicine Nephrology
DX: A41.9 Sepsis, unspecified organism (principal); G82.20 Paraplegia, unspecified; A04.71 Enterocolitis due to Clostridium difficile, recurrent; N39.0 Urinary tract infection, site not specified; B96.1 Klebsiella pneumoniae [K. pneumoniae] as the cause of diseases classified elsewhere; Z16.12 Extended spectrum beta lactamase (ESBL) resistance; I10 Essential (primary) hypertension; I25.10 Atherosclerotic heart disease of native coronary artery without angina pectoris; N31.9 Neuromuscular dysfunction of bladder, unspecified; N40.1 Benign prostatic hyperplasia with lower urinary tract symptoms; R33.8 Other retention of urine; E78.5 Hyperlipidemia, unspecified; Z79.02 Long term (current) use of antithrombotics/antiplatelets; Z95.5 Presence of coronary angioplasty implant and graft; Z87.828 Personal history of other (healed) physical injury and trauma

== ENCOUNTER 2018-03-26 19:49 | Inpatient (IN) | payer MEDICARE, BC ==
[2018-03-26] MEDS: Sodium Chloride 0.9% 1,000 ML IV SCH (20:19)
[2018-03-26 20:54] LABS: VENOUS BLOOD GAS BASE EXCESS 3.7 mmol/L (0.0-2.0); VENOUS BLOOD GAS PO2 40 mm/Hg (30-55); VENOUS BLOOD PH 7.39 (7.32-7.43)
[2018-03-26 21:21] LABS: PH,URINE 6.5 (4.7-8.0); URINE BILIRUBIN NEGATIVE (NEGATIVE); URINE BLOOD SMALL (NEGATIVE); URINE GLUCOSE (UA) 250 mg/dL (NEGATIVE); URINE LEUKOCYTE ESTERASE LARGE Leu/uL (NEGATIVE); URINE PROTEIN 30 mg/dL (<30 mg/dL); URINE UROBILINOGEN 0.2 E.U./dL (<1 E.U./dL)
[2018-03-26 21:23] LABS: ALB/GLOB RATIO 1.1 (1.1-1.8); ALBUMIN 3.8 g/dL (3.0-4.8); ALT/SGPT 42 U/L (7-56); AST/SGOT 39 U/L (17-59); BLOOD UREA NITROGEN 21 mg/dL (7-21); CALCIUM 9.3 mg/dL (8.4-10.5); GFR NON-AFRICAN AMERICAN > 60
[2018-03-26 21:24] LABS: BASO # 0.02 K/mm3 (0.0-2.0); BASO % 0.1 % (0.0-3.0); EOS # 0.2 (0.0-0.7); GRAN # 11.72 (1.4-6.5); GRAN % 75.4 % (50.0-68.0); HEMOGLOBIN 10.5 g/dL (14.0-18.0); LYMPH # 2.5 (1.2-3.4); MEAN CELL VOLUME 89.9 fl (80.0-105.0); MEAN CORPUSCULAR HEMOGLOBIN 29.4 pg (25.0-35.0); MEAN CORPUSCULAR HGB CONC 32.7 g/dl (31.0-37.0); MEAN PLATELET VOLUME 10.3 fl (7.0-11.0); MONO # 1.2 (0.1-0.6); MONO % 7.5 % (1.0-6.0); RBC 3.57 10^6/uL (3.5-6.1); RED CELL DISTRIBUTION WIDTH 17.2 % (11.5-14.5); WHITE BLOOD COUNT 15.5 10^3/uL (4.5-11.0)
[2018-03-26 21:25] LABS: INR 1.04; PARTIAL THROMBOPLASTIN TIME 31.1 Seconds (25.1-36.5); PROTHROMBIN TIME 11.9 SECONDS (9.4-12.5)
[2018-03-26 21:30] LABS: URINE APPEARANCE CLOUDY (CLEAR); URINE COLOR YELLOW (YELLOW)
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
[2018-03-26 21:38] LABS: URINE RBC 25 - 30 /hpf (0-2); URINE WBC TNTC /hpf (0-6)
[2018-03-26 21:39] LABS: URINE BACTERIA SMALL (NEG)
[2018-03-26] MEDS ORDERED: cefTRIAXone 1 gm 1 GM/100 ML BAG IV STA (22:00)
[2018-03-27 02:04] VITALS: BMI 25.0
[2018-03-27] MEDS ORDERED: Sodium Chloride 0.9% 1,000 ML IV STA ×2 (02:44→08:00)
[2018-03-27] MEDS ORDERED: Sodium Chloride 0.9% 500 ML IV STA (05:21)
[2018-03-27] MEDS: Sodium Chloride 0.9% 1,000 ML IV SCH ×4 (06:00→21:50)
[2018-03-27] MEDS ORDERED: MEROPENEM 500 MG in NS 500 MG/50 ML BAG IVPB SCH (10:00)
--- NOTE | 2018-03-27 10:27 | RAD ---
Date of service: 03/26/2018 HISTORY: Sepsis Patient COMPARISON: Comparison with chest radiograph 11 18 FINDINGS: LUNGS: Bibasilar atelectasis. Interstitial markings are increased and coarsened. PLEURA: No significant pleural effusion identified, no pneumothorax apparent. CARDIOVASCULAR: Mild aortic atherosclerotic calcification present. Normal cardiac size. No pulmonary vascular congestion. OSSEOUS STRUCTURES: No bilateral Martinez rods again seen overlying the lower thoracic VISUALIZED UPPER ABDOMEN: Normal. OTHER FINDINGS: None. IMPRESSION: Bibasilar atelectasis. Interstitial markings are increased and coarsened.
[2018-03-27] MEDS: Meropenem IV 1 gm in NS 1 GM/50 ML BAG IVPB SCH ×3 (11:25→21:50)
[2018-03-27] MEDS: Vancomycin 25 MG/ML PO SCH ×4 (11:31→21:57)
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
--- NOTE | 2018-03-27 19:00 | CP.PCM.CON ---
History of Present Illness - History of Present Illness History of Present Illness: MICU Consultation 82M with HTN CAD paraplegia I was asked to see for hypotension and sepsis. He has a very active and acute history including ESBL, recurrent UTIs as well as Cdiff. He is been tx with merrem and on PO vanc for his C diff. Not diarrhea at the moment. not febrile. no chills. izaguirre in place. PMH as suman as well as BPH, chornic izaguirre, and cholecystectomy Meds: flomax, toprol, plavix and lipito Allx: diatrizoate sodium ROS as above Past Patient History - Infectious Disease Hx of Infectious Diseases: None - Past Medical History & Family History Past Medical History?: Yes - Past Social History Smoking Status: Never Smoked - CARDIAC Hx Cardiac Disorders: Yes Hx Hypertension: Yes - PULMONARY Hx Respiratory Disorders: No - NEUROLOGICAL Hx Neurological Disorder: No - HEENT Hx HEENT Problems: No - RENAL Hx Chronic Kidney Disease: No - ENDOCRINE/METABOLIC Hx Endocrine Disorders: No - HEMATOLOGICAL/ONCOLOGICAL Hx Blood Disorders: No - INTEGUMENTARY Hx Dermatological Problems: No - MUSCULOSKELETAL/RHEUMATOLOGICAL Hx Musculoskeletal Disorders: Yes Hx Falls: No Hx Unsteady Gait: Yes Other/Comment: Patient is a parasplegic - GASTROINTESTINAL Hx Gastrointestinal Disorders: No Hx Gall Bladder Disease: Yes (Call bladder remove 6 weeks ago) - GENITOURINARY/GYNECOLOGICAL Hx Genitourinary Disorders: Yes Hx Hematuria: Yes Hx Prostate Problems: Yes Hx Urinary Tract Infection: Yes - PSYCHIATRIC Hx Psychophysiologic Disorder: No - SURGICAL HISTORY Hx Surgeries: Yes (GAll bladder and spinal cord) Hx Coronary Stent: Yes Hx Musculoskeletal Surgery: Yes - ANESTHESIA Hx Anesthesia Reactions: No Hx Malignant Hyperthermia: No Meds Allergies/Adverse Reactions: Allergies Allergy/AdvReac Type Severity Reaction Status Date / Time diatrizoate sodium Allergy Intermediate ANAPHYLAXIS Verified 03/04/18 13:16 [From Hypaque] - Medications Medications: Current Medications Atorvastatin Calcium (Lipitor) 40 mg PO HS [facility] Clopidogrel Bisulfate (Plavix) 75 mg PO DAILY [facility] Last Admin: 03/27/18 10:05 Dose: 75 mg Sodium Chloride (Sodium Chloride 0.9%) 1,000 mls @ 150 mls/hr IV .Q6H40M [facility] Last Admin: 03/27/18 14:46 Dose: 150 mls/hr Meropenem (Merrem Iv 1 Gm Premix) 1 gm in 50 mls @ 100 mls/hr IVPB Q8 [facility]; Protocol Stop: 04/10/18 10:25 Last Admin: 03/27/18 14:43 Dose: 100 mls/hr Tamsulosin HCl (Flomax) 0.4 mg PO DAILY [facility] Last Admin: 03/27/18 10:05 Dose: 0.4 mg Vancomycin HCl (Vancocin 25 Mg/Ml (Oral Use)) 250 mg PO QID [facility]; Protocol Stop: 04/05/18 10:31 Last Admin: 03/27/18 15:58 Dose: 250 mg Results - Vital Signs Recent Vital Signs: Last Vital Signs Temp 97.9 F 03/27/18 07:00 Pulse 81 03/27/18 07:00 Resp 18 03/27/18 07:00 BP 78/45 L 03/27/18 09:25 Pulse Ox 95 03/27/18 09:25 - Labs Result Diagrams: 03/26/18 20:31 03/26/18 20:31 Labs: Laboratory Results - last 24 hr 03/26/18 03/26/18 03/26/18 20:31 20:31 20:31 WBC 15.5 H D RBC 3.57 Hgb 10.5 L Hct 32.1 L MCV 89.9 MCH 29.4 MCHC 32.7 RDW 17.2 H Plt Count 230 MPV 10.3 Gran % 75.4 H Lymph % (Auto) 16.0 L [place] % (Auto) 7.5 H Eos % (Auto) 1.0 L Baso % (Auto) 0.1 Gran # 11.72 H Lymph # (Auto) 2.5 [place] # (Auto) 1.2 H Eos # (Auto) 0.2 Baso # (Auto) 0.02 PT 11.9 INR 1.04 APTT 31.1 pO2 40 VBG pH 7.39 VBG pCO2 49.0 VBG HCO3 29.7 H VBG Total CO2 31.2 H VBG O2 Sat (Calc) 75.7 H VBG Base Excess 3.7 H VBG Potassium 4.1 Sodium 136.0 Chloride 101.0 Glucose 155 H Lactate 1.5 FiO2 21.0 Potassium Carbon Dioxide Anion Gap BUN Creatinine Est GFR ( Amer) Est GFR (Non-Af Amer) Random Glucose Calcium Phosphorus Magnesium Total Bilirubin AST ALT Alkaline Phosphatase Total Protein Albumin Globulin Albumin/Globulin Ratio Prostate Specific Ag Venous Blood Potassium 4.1 Urine Color Urine Appearance Urine pH Ur Specific [place] Urine Protein Urine Glucose (UA) Urine Ketones Urine Blood Urine Nitrate Urine Bilirubin Urine Urobilinogen Ur Leukocyte Esterase Urine RBC Urine WBC Ur Epithelial Cells Urine Bacteria 03/26/18 03/26/18 03/27/18 20:31 20:32 10:30 WBC RBC Hgb Hct MCV MCH MCHC RDW Plt Count MPV Gran % Lymph % (Auto) [place] % (Auto) Eos % (Auto) Baso % (Auto) Gran # Lymph # (Auto) [place] # (Auto) Eos # (Auto) Baso # (Auto) PT INR APTT pO2 VBG pH VBG pCO2 VBG HCO3 VBG Total CO2 VBG O2 Sat (Calc) VBG Base Excess VBG Potassium Sodium 137 Chloride 101 Glucose Lactate FiO2 Potassium 4.2 Carbon Dioxide 28 Anion Gap 12 BUN 21 Creatinine 0.7 L Est GFR ( Amer) > 60 Est GFR (Non-Af Amer) > 60 Random Glucose 146 H Calcium 9.3 Phosphorus 3.8 Magnesium 2.0 Total Bilirubin 0.8 AST 39 ALT 42 Alkaline Phosphatase 129 H D Total Protein 7.3 Albumin 3.8 Globulin 3.5 Albumin/Globulin Ratio 1.1 Prostate Specific Ag 2.6 H Venous Blood Potassium Urine Color Yellow Urine Appearance Cloudy Urine pH 6.5 Ur Specific [place] 1.020 Urine Protein 30 H Urine Glucose (UA) 250 H Urine Ketones Negative Urine Blood Small H Urine Nitrate Negative Urine Bilirubin Negative Urine Urobilinogen 0.2 Ur Leukocyte Esterase Large H Urine RBC 25 - 30 Urine WBC Tntc Ur Epithelial Cells 4 - 5 Urine Bacteria Small Addendum Addendum: 03/27/18 18:59 82M with HTN CAD recent GI/ infections including ESBL and C diff admitted with sepsis. Upon my evaluation his BP was 90/54 with HR 88. He was afebrile. He did not appear toxic. He was awake alert and talking to me with his son in the room. I recommended completing fluids and continuing abx while monitoring urine output. I returned to his bedside after 1 hour, then 2 hours later and again 2 hour later to re examined him and re-check his BP. At this time, 7pm, his BP is 98/54 HR 84. He remains afebrile. Subjectively feeling better and making 450cc urine this afternoon. At this time, I do not think he needs ICU level care however if he BP does drop then he should come for IV pressors. Currently, his urine output suggest good cardiac output and adequate fluids resiscuation. Abx as per ID. Thank you for the consultation Please re-call ICU if any clinical decline. Shanika Olmedo MD Pulmonary Critical Care and Sleep Medicine
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
[2018-03-27] MEDS ORDERED: Lactated Ringer's 1,000 ML IV SCH (21:00)
--- NOTE | 2018-03-27 22:30 | CARD ---
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
[2018-03-28] MEDS: Pantoprazole 20 mg EC Tab PO SCH ×2 (05:10→18:00)
[2018-03-28] MEDS: Meropenem IV 1 gm in NS 1 GM/50 ML BAG IVPB SCH ×3 (05:10→23:05)
[2018-03-28] MEDS: Sodium Chloride 0.9% 1,000 ML IV SCH ×2 (05:11→14:18)
[2018-03-28 08:14] LABS: BASO # 0.02 K/mm3 (0.0-2.0); BASO % 0.2 % (0.0-3.0); EOS # 0.3 (0.0-0.7); EOS % 2.9 % (1.5-5.0); GRAN # 8.69 (1.4-6.5); HEMOGLOBIN 9.2 g/dL (14.0-18.0); LYMPH # 1.1 (1.2-3.4); LYMPH % 10.4 % (22.0-35.0); MEAN CELL VOLUME 89.2 fl (80.0-105.0); MEAN CORPUSCULAR HEMOGLOBIN 29.3 pg (25.0-35.0); MEAN CORPUSCULAR HGB CONC 32.9 g/dl (31.0-37.0); MEAN PLATELET VOLUME 10.2 fl (7.0-11.0); MONO # 0.8 (0.1-0.6); MONO % 7.5 % (1.0-6.0); RBC 3.14 10^6/uL (3.5-6.1); RED CELL DISTRIBUTION WIDTH 17.9 % (11.5-14.5)
[2018-03-28 08:55] LABS: ALB/GLOB RATIO 0.9 (1.1-1.8); ALBUMIN 2.6 g/dL (3.0-4.8); ALT/SGPT 40 U/L (7-56); AST/SGOT 42 U/L (17-59); BLOOD UREA NITROGEN 15 mg/dL (7-21); CALCIUM 7.8 mg/dL (8.4-10.5); GFR NON-AFRICAN AMERICAN > 60
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
[2018-03-28] MEDS: Vancomycin 25 MG/ML PO SCH ×4 (12:24→23:03)
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
[2018-03-29] MEDS: Meropenem IV 1 gm in NS 1 GM/50 ML BAG IVPB SCH ×3 (05:43→22:28)
[2018-03-29] MEDS: Pantoprazole 20 mg EC Tab PO SCH ×2 (05:44→17:25)
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
[2018-03-29 07:54] VITALS: RESP 20
[2018-03-29 08:53] LABS: HEMOGLOBIN 10.1 g/dL (14.0-18.0); MEAN CELL VOLUME 91.2 fl (80.0-105.0); MEAN CORPUSCULAR HEMOGLOBIN 29.6 pg (25.0-35.0); MEAN CORPUSCULAR HGB CONC 32.5 g/dl (31.0-37.0); RBC 3.41 10^6/uL (3.5-6.1); RED CELL DISTRIBUTION WIDTH 17.7 % (11.5-14.5); WHITE BLOOD COUNT 7.4 10^3/uL (4.5-11.0)
[2018-03-29 08:54] LABS: BASO # 0.03 K/mm3 (0.0-2.0); BASO % 0.4 % (0.0-3.0); EOS # 0.7 (0.0-0.7); EOS % 9.3 % (1.5-5.0); GRAN # 4.48 (1.4-6.5); GRAN % 60.4 % (50.0-68.0); LYMPH # 1.4 (1.2-3.4); LYMPH % 19.2 % (22.0-35.0); MEAN PLATELET VOLUME 11.5 fl (7.0-11.0); MONO # 0.8 (0.1-0.6); MONO % 10.7 % (1.0-6.0)
[2018-03-29] MEDS: Vancomycin 25 MG/ML PO SCH ×4 (09:57→22:27)
[2018-03-29 11:03] LABS: BLOOD UREA NITROGEN 14 mg/dL (7-21); CALCIUM 8.4 mg/dL (8.4-10.5); GFR NON-AFRICAN AMERICAN > 60
--- NOTE | 2018-03-30 01:17 | PN ---
DATE: 03/29/2018 SUBJECTIVE: The patient in bed, in no acute distress. Nontoxic on exam. PHYSICAL EXAMINATION: VITAL SIGNS: Temperature is 97, blood pressure is 117/60, respiratory rate of 20, heart rate of 81. HEENT: Unremarkable. NECK: Supple. LUNGS: Decreased breath sounds. HEART: Normal S1, S2. ABDOMEN: Soft. LABORATORY DATA: His white count is 7.4, hemoglobin of 10, BUN of 14, creatinine 0.6. Urinalysis is noted. PSA is 2.6 and Microbiology reveals ESBL Klebsiella in the urine. The blood cultures are negative. ASSESSMENT AND PLAN: He is an 82-year-old male with severe sepsis, Klebsiella extended-spectrum beta-lactamases, urinary tract infection, urinary retention, benign prostatic hypertrophy, pseudomembranous colitis, coronary artery disease, hypertension, on day #3 of meropenem and also on p.o. vancomycin. He will need 14 days of antibiotics and Urology evaluation regarding recurrent urinary retention. Ramses Floyd MD
[2018-03-30] MEDS: Pantoprazole 20 mg EC Tab PO SCH ×2 (05:49→17:00)
[2018-03-30] MEDS: Meropenem IV 1 gm in NS 1 GM/50 ML BAG IVPB SCH ×2 (05:50→14:37)
--- NOTE | 2018-03-30 06:45 | CP.PCM.PN ---
Objective - Vital Signs/Intake and Output Vital Signs (last 24 hours): Temp Pulse Resp BP Pulse Ox 98.3 F 80 20 111/62 97 03/29/18 22:05 03/29/18 22:05 03/29/18 22:05 03/29/18 22:05 03/29/18 22:05 Intake and Output: 03/29/18 03/30/18 18:59 06:59 Intake Total 1200 Output Total 150 Balance 1050 - Medications Medications: Current Medications Atorvastatin Calcium (Lipitor) 40 mg PO HS [facility] Last Admin: 03/29/18 22:28 Dose: 40 mg Clopidogrel Bisulfate (Plavix) 75 mg PO DAILY [facility] Last Admin: 03/29/18 09:57 Dose: 75 mg Ferrous Sulfate (Feosol) 324 mg PO BID [facility] Last Admin: 03/29/18 17:25 Dose: 324 mg Heparin Sodium (Porcine) (Heparin) 5,000 units SC Q12 [facility]; Protocol Last Admin: 03/29/18 22:27 Dose: 5,000 units Meropenem (Merrem Iv 1 Gm Premix) 1 gm in 50 mls @ 100 mls/hr IVPB Q8 [facility]; Protocol Stop: 04/10/18 10:25 Last Admin: 03/30/18 05:50 Dose: 100 mls/hr Pantoprazole Sodium (Protonix Ec Tab) 20 mg PO 0600,1600 [facility] Last Admin: 03/30/18 05:49 Dose: 20 mg Tamsulosin HCl (Flomax) 0.4 mg PO DAILY [facility] Last Admin: 03/29/18 09:57 Dose: 0.4 mg Vancomycin HCl (Vancocin 25 Mg/Ml (Oral Use)) 250 mg PO QID [facility]; Protocol Stop: 04/05/18 10:31 Last Admin: 03/29/18 22:27 Dose: 25 mg - Labs Labs: 03/29/18 08:15 03/29/18 08:15 PT 11.9 SECONDS (9.4-12.5) 03/26/18 20:31 INR 1.04 03/26/18 20:31 APTT 31.1 Seconds (25.1-36.5) 03/26/18 20:31
[2018-03-30 07:26] LABS: BASO # 0.03 K/mm3 (0.0-2.0); BASO % 0.4 % (0.0-3.0); EOS # 0.8 (0.0-0.7); EOS % 10.5 % (1.5-5.0); GRAN # 3.5 (1.4-6.5); LYMPH # 2.6 (1.2-3.4); LYMPH % 33.6 % (22.0-35.0); MEAN CELL VOLUME 89.3 fl (80.0-105.0); MEAN CORPUSCULAR HEMOGLOBIN 28.8 pg (25.0-35.0); MEAN CORPUSCULAR HGB CONC 32.3 g/dl (31.0-37.0); MEAN PLATELET VOLUME 10.6 fl (7.0-11.0); MONO # 0.7 (0.1-0.6); MONO % 9.5 % (1.0-6.0); RBC 3.47 10^6/uL (3.5-6.1); RED CELL DISTRIBUTION WIDTH 16.9 % (11.5-14.5); WHITE BLOOD COUNT 7.6 10^3/uL (4.5-11.0)
[2018-03-30 07:41] LABS: BLOOD UREA NITROGEN 13 mg/dL (7-21); CALCIUM 8.7 mg/dL (8.4-10.5); GFR NON-AFRICAN AMERICAN > 60
[2018-03-30 08:29] VITALS: O2SAT 98
[2018-03-30] MEDS: Vancomycin 25 MG/ML PO SCH ×3 (09:35→17:57)
--- NOTE | 2018-03-30 13:56 | US ---
Date of service: 03/30/2018 PROCEDURE: Bladder ultrasound HISTORY: neurogenic bladder with poss outlet obstruction COMPARISON: None TECHNIQUE: Standard protocol for this study/examination. FINDINGS: Urinary bladder assessment: Prevoid volume: 597.2 ml Postvoid residual: 305.8 ml Intrinsic, mural, perivesical abnormalities: None Ureteral jets: Documented bilaterally. IMPRESSION: Normal capacitance bladder. Large postvoid residual.
[2018-03-30 15:01] VITALS: BP 103/63; PULSE 75; TEMP 97.5
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
== END 2018-03-30 18:33 | disposition home health service (06) | DRG 872 ==
LOC: ED 19:49 → ERH 22:33 → 5RSO 03-27 00:34 → OBSVTOIN 03-28 12:57
PROVIDERS: ADMIT Internal Medicine; ATTEND Internal Medicine Nephrology
PROC: 05HY33Z Insertion of Infusion Device into Upper Vein, Percutaneous Approach (ICD-10-PCS; principal; 2018-03-30)
DX: A41.9 Sepsis, unspecified organism (principal); G82.20 Paraplegia, unspecified; N39.0 Urinary tract infection, site not specified; A04.72 Enterocolitis due to Clostridium difficile, not specified as recurrent; Z79.899 Other long term (current) drug therapy; Z79.02 Long term (current) use of antithrombotics/antiplatelets; I95.9 Hypotension, unspecified; R65.20 Severe sepsis without septic shock; B96.1 Klebsiella pneumoniae [K. pneumoniae] as the cause of diseases classified elsewhere; Z16.12 Extended spectrum beta lactamase (ESBL) resistance; N40.1 Benign prostatic hyperplasia with lower urinary tract symptoms; R33.8 Other retention of urine; E78.5 Hyperlipidemia, unspecified; I10 Essential (primary) hypertension; I25.10 Atherosclerotic heart disease of native coronary artery without angina pectoris; N31.9 Neuromuscular dysfunction of bladder, unspecified; R31.0 Gross hematuria; Z86.19 Personal history of other infectious and parasitic diseases; Z87.440 Personal history of urinary (tract) infections; Z90.49 Acquired absence of other specified parts of digestive tract; Z95.5 Presence of coronary angioplasty implant and graft; Z88.8 Allergy status to other drugs, medicaments and biological substances; Z87.892 Personal history of anaphylaxis

== ENCOUNTER 2018-04-30 13:46 | Inpatient (IN) | payer MEDICARE, BC ==
[2018-04-30 13:46] VITALS: BMI 25.0
[2018-04-30 14:44] LABS: BASO # 0.02 K/mm3 (0.0-2.0); BASO % 0.1 % (0.0-3.0); EOS # 0.1 (0.0-0.7); EOS % 0.5 % (1.5-5.0); GRAN # 18.25 (1.4-6.5); GRAN % 89.4 % (50.0-68.0); HEMOGLOBIN 10.9 g/dL (14.0-18.0); LYMPH # 1.1 (1.2-3.4); LYMPH % 5.2 % (22.0-35.0); MEAN CELL VOLUME 88.4 fl (80.0-105.0); MEAN CORPUSCULAR HEMOGLOBIN 29.4 pg (25.0-35.0); MEAN CORPUSCULAR HGB CONC 33.2 g/dl (31.0-37.0); MEAN PLATELET VOLUME 10.1 fl (7.0-11.0); MONO % 4.8 % (1.0-6.0); RBC 3.71 10^6/uL (3.5-6.1); RED CELL DISTRIBUTION WIDTH 16.4 % (11.5-14.5); VENOUS BLOOD GAS PO2 69 mm/Hg (30-55); WHITE BLOOD COUNT 20.4 10^3/uL (4.5-11.0)
--- NOTE | 2018-04-30 14:52 | RAD ---
Date of service: 04/30/2018 HISTORY: Sepsis Patient COMPARISON: 03/26/2018 FINDINGS: LUNGS: No active pulmonary disease. PLEURA: No significant pleural effusion identified, no pneumothorax apparent. CARDIOVASCULAR: Aortic calcification and tortuosity Normal cardiac size. No pulmonary vascular congestion. OSSEOUS STRUCTURES: Spinal rods are seen in the lower thoracic spine VISUALIZED UPPER ABDOMEN: Normal. OTHER FINDINGS: None. IMPRESSION: No active disease.
[2018-04-30 14:54] LABS: INR 1.03; PARTIAL THROMBOPLASTIN TIME 31.8 Seconds (25.1-36.5); PROTHROMBIN TIME 11.8 SECONDS (9.4-12.5)
[2018-04-30 14:56] LABS: ALB/GLOB RATIO 1.2 (1.1-1.8); ALBUMIN 3.8 g/dL (3.0-4.8); ALT/SGPT 42 U/L (7-56); AST/SGOT 42 U/L (17-59); BLOOD UREA NITROGEN 21 mg/dL (7-21); CALCIUM 9.3 mg/dL (8.4-10.5); GFR NON-AFRICAN AMERICAN > 60
[2018-04-30 15:07] LABS: TROPONIN I < 0.01 ng/mL
[2018-04-30 15:20] LABS: URINE BILIRUBIN NEGATIVE (NEGATIVE); URINE BLOOD MODERATE (NEGATIVE); URINE GLUCOSE (UA) NEGATIVE (NEGATIVE); URINE LEUKOCYTE ESTERASE LARGE Leu/uL (NEGATIVE); URINE PROTEIN NEGATIVE mg/dL (<30 mg/dL); URINE UROBILINOGEN 0.2 E.U./dL (<1 E.U./dL)
[2018-04-30 15:21] LABS: URINE APPEARANCE SLIGHT-CLOUDY (CLEAR); URINE COLOR LIGHT YELLOW (YELLOW)
[2018-04-30 15:25] LABS: URINE BACTERIA TRACE /hpf
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
[2018-04-30] MEDS ORDERED: cefTRIAXone 1 gm 1 GM/100 ML BAG IVPB STA (16:00)
[2018-04-30] MEDS ORDERED: Sodium Chloride 0.9% 1,000 ML IV STA (16:42)
[2018-04-30] MEDS: Metoprolol Succinate 25 mg XL Tab PO SCH (16:54)
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
[2018-04-30] MEDS ORDERED: Influenza Vaccine 60 mcg/0.5 mL SYR (4YR UP) IM ONE (20:47)
[2018-04-30] MEDS ORDERED: Pneumococcal 23-Valent Vaccine IM ONE (20:47)
[2018-04-30] MEDS ORDERED: Non Formulary Medication (Meropenem [Merrem Iv] 1 GM) IV SCH (22:00)
[2018-04-30] MEDS: Meropenem IV 1 gm in NS 1 GM/50 ML BAG IVPB SCH (22:22)
[2018-05-01] MEDS: Meropenem IV 1 gm in NS 1 GM/50 ML BAG IVPB SCH ×3 (05:44→21:40)
[2018-05-01 08:10] LABS: BASO # 0.03 K/mm3 (0.0-2.0); BASO % 0.2 % (0.0-3.0); EOS # 0.3 (0.0-0.7); EOS % 1.5 % (1.5-5.0); GRAN # 15.38 (1.4-6.5); GRAN % 77.8 % (50.0-68.0); HEMOGLOBIN 9.9 g/dL (14.0-18.0); LYMPH # 2.4 (1.2-3.4); LYMPH % 12.2 % (22.0-35.0); MEAN CELL VOLUME 89.7 fl (80.0-105.0); MEAN CORPUSCULAR HEMOGLOBIN 29.1 pg (25.0-35.0); MEAN CORPUSCULAR HGB CONC 32.5 g/dl (31.0-37.0); MEAN PLATELET VOLUME 10.6 fl (7.0-11.0); MONO # 1.6 (0.1-0.6); MONO % 8.3 % (1.0-6.0); RBC 3.4 10^6/uL (3.5-6.1); RED CELL DISTRIBUTION WIDTH 17.1 % (11.5-14.5); WHITE BLOOD COUNT 19.8 10^3/uL (4.5-11.0)
[2018-05-01 08:28] LABS: ALB/GLOB RATIO 1.1 (1.1-1.8); ALBUMIN 3.2 g/dL (3.0-4.8); ALT/SGPT 35 U/L (7-56); AST/SGOT 29 U/L (17-59); BLOOD UREA NITROGEN 21 mg/dL (7-21); CALCIUM 9.1 mg/dL (8.4-10.5); GFR NON-AFRICAN AMERICAN > 60
--- NOTE | 2018-05-01 09:42 | CARD ---
APPROVED REPORT Date of service: 04/30/2018 EKG Measurement Heart [id number] <Conclusion> Normal sinus rhythm Right bundle branch block Left anterior fascicular block Bifascicular block Minimal voltage criteria for LVH, may be normal variant Septal infarct, age undetermined Abnormal ECG
[2018-05-01] MEDS: Metoprolol Succinate 25 mg XL Tab PO SCH (11:02)
[2018-05-01] MEDS: Vancomycin 25 MG/ML PO SCH ×4 (12:00→22:12)
[2018-05-01] MEDS ORDERED: Barium Sulfate Susp 2.1% w/v, 2.0% w/w 450 mL Bottle PO ONE (12:51)
[2018-05-01] MEDS ORDERED: MEROPENEM 500 MG in NS 500 MG/50 ML BAG IVPB SCH (14:00)
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
--- NOTE | 2018-05-01 20:55 | PN ---
DATE: 05/01/2018 SUBJECTIVE: Patient is 82-year-old, seen and examined. Family by the bedside, daughter and , was brought to emergency room because of spike of fever at home. Patient's daughter stated that he just finished antibiotic almost a week ago, and he had midline and it was just removed. Patient also is being followed by urologist in some other town who did laser vaporization of prostate. Otherwise patient is awake, alert, and oriented, offer no complaint. PHYSICAL EXAMINATION: VITAL SIGNS: He is afebrile. Pulse 60, respirations 20, blood pressure 105/67. LUNGS: Bilateral fair air flow. No rhonchi or crackles. HEART: S1 and S2 audible. ABDOMEN: Soft. Nontender. No rebound. No guarding. NEUROLOGIC: He is paraplegic. Otherwise he is awake and alert. Bilateral legs: No edema. LABORATORY DATA: WBC is 19.8, hemoglobin 9.9, hematocrit 30.5, platelets of 187. Chemistries: Sodium 138, potassium 3.8, chloride 108, CO2 26, BUN 21, creatinine 0.7, blood sugar 105. Urine shows moderate blood and large leukocyte with rbcs of 1.3. ASSESSMENT: 1. Leukocytosis. 2. Pyuria. 3. Jimmy of fever at home, but patient did not spike fever while he is in hospital. 4. History of paraplegia. 5. History of Clostridium difficile. 6. Benign prostatic hypertrophy. 7. Hyperlipidemia. PLAN: Currently patient is on doxycycline and meropenem as per ID recommendation, source still to be determined. CT scan of the abdomen and pelvis have been ordered by Dr. Floyd that needed to be followed. Continue on antibiotics for now. Dr. Garay will follow patient. Héctor Woodard MD
[2018-05-02] MEDS: Meropenem IV 1 gm in NS 1 GM/50 ML BAG IVPB SCH ×3 (06:58→21:09)
[2018-05-02] MEDS: Metoprolol Succinate 25 mg XL Tab PO SCH (09:38)
[2018-05-02] MEDS: Vancomycin 25 MG/ML PO SCH ×4 (10:00→21:09)
--- NOTE | 2018-05-02 10:59 | CT ---
Date of service: 05/01/2018 PROCEDURE: CT Chest, Abdomen and Pelvis without intravenous contrast HISTORY: r/o infilrate COMPARISON: None available. TECHNIQUE: Radiation dose: Total exam DLP = 864.08 mGy-cm. This CT exam was performed using one or more of the following dose reduction techniques: Automated exposure control, adjustment of the mA and/or kV according to patient size, and/or use of iterative reconstruction technique. FINDINGS: CT CHEST WITHOUT CONTRAST: LUNGS: Diffuse bilateral fibrotic change. MEDIASTINUM: Unremarkable. Normal caliber aorta and pulmonary arterial trunk. Normal size heart. LYMPH NODES: Unremarkable. PLEURA: Unremarkable. No pneumothorax. No pleural fluid. BONES: Unremarkable. OTHER FINDINGS: None. CT ABDOMEN AND PELVIS: LIVER: Unremarkable. No gross lesion or ductal dilatation. GALLBLADDER AND BILE DUCTS: Cholecystectomy. PANCREAS: Unremarkable. No gross lesion or ductal dilatation. SPLEEN: Unremarkable. ADRENALS: Unremarkable. No mass. KIDNEYS AND URETERS: Bilateral hydronephrosis and hydroureter to the level of urinary bladder with mild bladder wall thickening. VASCULATURE: Aortic calcifications. Unremarkable. No aortic aneurysm. BOWEL: Unremarkable. No obstruction. No gross mural thickening. APPENDIX: Normal appendix. PERITONEUM: Unremarkable. No free fluid. No free air. LYMPH NODES: Unremarkable. No enlarged lymph nodes. BLADDER: Unremarkable. REPRODUCTIVE: Unremarkable. BONES: No acute fracture. OTHER FINDINGS: Streak artifact from Martinez rods limits assessment. IMPRESSION: Bilateral hydronephrosis and hydroureter to the level of urinary bladder with mild bladder wall thickening. Evidence of previous TURP. Correlate clinically for bladder outlet obstruction.
--- NOTE | 2018-05-02 13:26 | PN ---
DATE: 05/02/2018 SUBJECTIVE: The patient has no complaint of any chest pain or shortness of breath. No headaches. PHYSICAL EXAMINATION: VITAL SIGNS: Temperature 98.6, pulse of 83, blood pressure 124/64, respirations 20. GENERAL: The patient is lying in bed, flat, comfortable. HEENT: No oral lesion. Anicteric sclerae. Moist mucosa. NECK: No JVD, adenopathy, or thyromegaly. CARDIOVASCULAR: S1 and S2, regular. No murmurs, rubs, or gallops. LUNGS: Clear to auscultation bilaterally. No wheeze, rales, or rhonchi. ABDOMEN: Bowel sounds are positive, soft, nontender and nondistended. EXTREMITIES: No cyanosis, clubbing or edema. LABS: White count of 19.8, hemoglobin 9.9, creatinine is 0.7. ASSESSMENT: 1. Sepsis. 2. Hypertension. 3. Dyslipidemia. 4. Coronary artery disease. 5. Paraplegia. 6. Benign prostatic hypertrophy. PLAN: The patient's urine cultures have been negative. The patient may have healthcare associated pneumonia. A CAT scan has been ordered. The patient is also being seen by Infectious Disease. He is on Flomax for his BPH. He is going to be on Plavix daily. The patient has vancomycin for possible Clostridium difficile. The patient is going to get urine for legionella. I did speak to the patient's at the bedside, they are frustrated that the patient needs to be readmitted to the hospital because of infection. Wilmer Garay MD
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
[2018-05-03] MEDS: Meropenem IV 1 gm in NS 1 GM/50 ML BAG IVPB SCH ×2 (05:33→13:54)
[2018-05-03 07:31] LABS: HEMOGLOBIN 10.5 g/dL (14.0-18.0); MEAN CELL VOLUME 89.9 fl (80.0-105.0); MEAN CORPUSCULAR HEMOGLOBIN 28.6 pg (25.0-35.0); MEAN CORPUSCULAR HGB CONC 31.8 g/dl (31.0-37.0); MEAN PLATELET VOLUME 10.5 fl (7.0-11.0); RBC 3.67 10^6/uL (3.5-6.1); RED CELL DISTRIBUTION WIDTH 16.7 % (11.5-14.5); WHITE BLOOD COUNT 7.5 10^3/uL (4.5-11.0)
[2018-05-03 08:12] VITALS: RESP 18
[2018-05-03] MEDS: Metoprolol Succinate 25 mg XL Tab PO SCH (10:23)
[2018-05-03] MEDS: Vancomycin 25 MG/ML PO SCH ×2 (10:24→13:55)
[2018-05-03 14:04] VITALS: BP 106/63; PULSE 74; TEMP 98.2; O2SAT 97
--- NOTE | 2018-05-03 15:09 | PN ---
DATE: 05/03/2018 SUBJECTIVE: The patient has no complaints of any chest pain. No shortness of breath. No headaches. PHYSICAL EXAMINATION: VITAL SIGNS: Temperature is 97.8, pulse of 70, blood pressure 102/55 and respirations 18. GENERAL: The patient is lying in bed, flat, comfortable. HEENT: No oral lesion. Anicteric sclerae. Moist mucosa. NECK: No JVD, adenopathy, or thyromegaly. CARDIOVASCULAR: S1 and S2, regular. No murmurs, rubs, or gallops. LUNGS: Clear to auscultation bilaterally. No wheeze, rales, or rhonchi. ABDOMEN: Bowel sounds are positive, soft, nontender and nondistended. EXTREMITIES: No cyanosis, clubbing or edema. LABORATORY DATA: White count of 7.5 and hemoglobin 10.5. Creatinine is 0.7. ASSESSMENT: 1. Sepsis, improved. 2. Hypertension. 3. Dyslipidemia. 4. Coronary artery disease. 5. Paraplegia. 6. Benign prostatic hypertrophy. PLAN: The patient is currently on doxycycline for antibiotics. He is on Flomax for his BPH. The patient is on Lipitor for dyslipidemia. The patient is on metoprolol daily. He is receiving vancomycin. The patient is being followed by Infectious Disease. The patient's white count is back to normal. The patient had a CT of the chest, abdomen and pelvis, there is bilateral hydronephrosis and hydroureter to the level of urinary bladder with mild bladder wall thickening, evidence of previous TURP. The lung had diffused bilateral fibrotic changes. The patient is on heart healthy diet. I did speak to the patient's daughter and at the bedside to give them an update on the patient's diagnosis and plan of care. The patient's blood culture and urine cultures are negative. We will await further input regarding discharge planning. I did speak to Dr. Amezquita yesterday, the patient's primary doctor to update her. Wilmer Garay MD
--- NOTE | 2018-05-03 19:05 | PN ---
DATE: 05/03/2018 SUBJECTIVE: The patient is seen earlier today in 561, bed 1. The patient's and daughter are at the bedside, and I had extensive discussion about him being discharged, and the patient is doing better. There have been no fevers documented here. No chills. No nausea, no vomiting. OBJECTIVE: VITAL SIGNS: On exam, temperature is 98, blood pressure is 106/60, respiratory rate of 18. HEENT: Unremarkable. NECK: Supple. LUNGS: Have decreased breath sounds. HEART: Normal S1, S2. ABDOMEN: Soft. LABORATORY EXAMINATION: Reveals a white count of 7.5, hemoglobin of 10, platelets of 195. Chemistries reveal a BUN of 21, creatinine 0.7, procalcitonin 0.09. Urinalysis is noted. Serology; influenza is negative. Urine Legionella antigen is negative. Blood cultures are negative. Urine cultures are negative. MRSA screen is not detected. The patient had a CT scan of the abdomen and pelvis which is negative and CT scan of the chest which is also negative. ASSESSMENT AND PLAN: This is an 82-year-old male with systemic inflammatory response syndrome and no obvious source. The patient is on a tapering dose of p.o. vancomycin. We will discontinue the meropenem and doxycycline. The patient will be discharged today with close followup with the patient's daughter and the patient's . If any fevers, he is to return to the emergency room promptly. Ramses Floyd MD
--- NOTE | 2018-05-04 10:50 | DS ---
HISTORY OF PRESENT ILLNESS: This is an 82-year-old male who came into the hospital because of sepsis. The patient had urine cultures and blood cultures that were negative. He was placed on vancomycin. He was seen by ID. The patient had improvement of his symptoms, his white count improved. He was discharged home. I did speak with patient's family. I also spoke with Dr. Floyd. CONDITION: Stable. ACTIVITY: Increase as tolerated. Please see the note dictated on 05/03/2018 for details regarding the discharge that happened on 05/03/2018. Wilmer Garay MD
== END 2018-05-03 16:39 | disposition home or self-care (01) | DRG 872 ==
LOC: ED 13:46 → ERH 16:01 → 5RNO 20:16
PROVIDERS: ADMIT Internal Medicine; ATTEND Internal Medicine Nephrology
DX: A41.9 Sepsis, unspecified organism (principal); N39.0 Urinary tract infection, site not specified; G82.20 Paraplegia, unspecified; N13.30 Unspecified hydronephrosis; C61 Malignant neoplasm of prostate; E78.5 Hyperlipidemia, unspecified; I10 Essential (primary) hypertension; I25.10 Atherosclerotic heart disease of native coronary artery without angina pectoris; N40.1 Benign prostatic hyperplasia with lower urinary tract symptoms; R33.8 Other retention of urine; N31.9 Neuromuscular dysfunction of bladder, unspecified; Z74.01 Bed confinement status; Z79.02 Long term (current) use of antithrombotics/antiplatelets; Z95.5 Presence of coronary angioplasty implant and graft